=== PATIENT | female | born 1935 | race African-American/Black ===

== ENCOUNTER 2017-10-05 23:06 | Inpatient (IN) | payer MEDICARE, MEDICAID ==
[~2017-10-05] VITALS: Ht 162.6 cm; Wt 84.8 kg
[2017-10-05 23:37] VITALS: BP 194/72
[2017-10-05] MEDS ORDERED: Morphine Sulfate 2mg/ml Inj IVP ONE (23:45)
[2017-10-06] VITALS (9 sets, daily range): BP systolic 129–180; BP diastolic 54–88
[2017-10-06 01:18] LABS: HEMATOCRIT 23.9 % (37.0-47.0); HEMOGLOBIN 7.3 G/DL (12.0-16.0); MEAN CORPUSCULAR VOLUME 68 FL (80-99); PLATELET COUNT 268 K/UL (150-450); RED BLOOD COUNT 3.51 M/UL (4.20-5.40); RED CELL DISTRIBUTION WIDTH 16.6 % (11.6-14.8); WHITE BLOOD COUNT 8.3 K/UL (4.8-10.8)
[2017-10-06 01:26] LABS: BLOOD UREA NITROGEN 39 mg/dL (7-18); CALCIUM 9.4 MG/DL (8.5-10.1); CARBON DIOXIDE 24 MMOL/L (21-32); CHLORIDE 94 MMOL/L (98-107); SODIUM 125 MMOL/L (136-145)
[2017-10-06 01:32] LABS: ALANINE AMINOTRANSFERASE 24 U/L (12-78); ALBUMIN 2.5 G/DL (3.4-5.0); ALBUMIN/GLOBULIN RATIO 0.4 (1.0-2.7); ALKALINE PHOSPHATASE 134 U/L (46-116); ASPARTATE AMINO TRANSFERASE 120 U/L (15-37); BILIRUBIN,TOTAL 0.9 MG/DL (0.2-1.0)
[2017-10-06] MEDS ORDERED: Sodium Chloride 500ML 500 ML IV ONE (01:45)
[2017-10-06 02:34] LABS: POTASSIUM 4.8 MMOL/L (3.5-5.1)
[2017-10-06] MEDS ORDERED: Morphine Sulfate 4mg/ml Inj (IV USE ONLY) IVP ONE (02:45)
[2017-10-06 02:54] LABS: CKMB 1.4 NG/ML (0.0-3.6)
--- NOTE | 2017-10-06 03:51 | Emergency Room Report ---
History of Present Illness General Chief Complaint: Back Pain-No Injury Source: Patient Present Illness HPI 82-year-old female presents ED for evaluation. Patient was brought in by [employer] to the hospital. Was found sitting on a bench alone at night. Patient states that on Wednesday she fell and landed on her back. States she's been having persistent pain to her lower back and left hip. 10 out of 10, sharp, radiating down the left leg. Patient states that she lives alone. Denies chest pain or shortness of breath. Denies fevers or chills. No other aggravating relieving factors. Denies any other associated symptoms Allergies: Coded Allergies: No Known Allergies (Unverified , 10/05/17) Patient History Past Medical History: HTN Past Surgical History: none Pertinent Family History: none Social History: Denies: smoking, alcohol use, drug use Now: No Immunizations: UTD Reviewed Nursing Documentation: PMH: Agreed; PSxH: Agreed Nursing Documentation-PMH Hx Hypertension: Yes Review of Systems All Other Systems: negative except mentioned in HPI Physical Exam Vital Signs Date Time Temp Pulse Resp B/P (MAP) Pulse Ox O2 Delivery O2 Flow Rate FiO2 10/05/17 23:26 99.0 110 16 194/72 99 Room Air 99.0 Sp02 EP Interpretation: reviewed, normal General Appearance: no apparent distress, alert, GCS 15, non-toxic Head: normocephalic, atraumatic Eyes: bilateral eye normal inspection, bilateral eye PERRL ENT: hearing grossly normal, normal pharynx, no angioedema, normal voice Neck: full range of motion, supple/symm/no masses Respiratory: chest non-tender, lungs clear, normal breath sounds, speaking full sentences Cardiovascular #1: regular rate, rhythm, no edema Cardiovascular #2: 2+ carotid (R), 2+ carotid (L), 2+ radial (R), 2+ radial (L) , 2+ dorsalis pedis (R), 2+ dorsalis pedis (L) Gastrointestinal: normal bowel sounds, non tender, soft, non-distended, no guarding, no rebound Rectal: deferred Genitourinary: normal inspection, no CVA tenderness Musculoskeletal: gait/station normal, normal range of motion, decreased range of motion - L hip, tender - L hip Neurologic: alert, oriented x3, responsive, motor strength/tone normal, sensory intact, speech normal Psychiatric: judgement/insight normal, memory normal, mood/affect normal, no suicidal/homicidal ideation Reflexes: 3+ bicep (R), 3+ bicep (L), 3+ tricep (R), 3+ tricep (L), 3+ knee (R) , 3+ knee (L) Skin: normal color, no rash, warm/dry, well hydrated Lymphatic: no adenopathy Medical Decision Making Diagnostic Impression: Primary Impression: Intractable back pain Additional Impressions: Renal insufficiency Hypertension Qualified Codes: I10 - Essential (primary) hypertension Hyponatremia Anemia Qualified Codes: D64.9 - Anemia, unspecified ER Course Hospital Course 82-year-old female presents to ED with back pain, L hip pain s/p fall x 2 days Differential diagnoses include: fracture, contusion, rhabdomyolysis Clinical course Patient placed on stretcher. case monitor. After initial history and physical I ordered labs, pain meds, CT and xrays CT Pelvis and Lspine - no acute process Femur Xray - negative for fx Labs - no leukocytosis, hb 7.3/23.9, Na 125, BUN/Cr elevated FOBT pending EKG- NSR no acute ischemic changes interpreted by me patient given hydralazine for persistent elevated BP. PRBCs ordered IVFs given. Despite analgesia patient continues to have pain in her back and hip and is unable to walk Case discussed with Dr. Ramos and he agreed to accept the patient to his service for further care and support I feel this is a highly complex case requiring extensive working including EKG/ Rhythm strip, Xray/CT/US, Blood/urine lab work, repeat exams while in ED, and administration of strong opiates/narcotics for pain control, admission to hospital or close patient follow up. Diagnosis -intractable back pain , renal insufficiency, hypertension, hyponatremia, anemia Patient admitted to telemetry in serious condition Labs Test 10/06/17 00:50 10/06/17 01:38 White Blood Count 8.3 K/UL (4.8-10.8) Red Blood Count 3.51 M/UL (4.20-5.40) Hemoglobin 7.3 G/DL (12.0-16.0) Hematocrit 23.9 % (37.0-47.0) Mean Corpuscular Volume 68 FL (80-99) Mean Corpuscular Hemoglobin 20.9 PG (27.0-31.0) Mean Corpuscular Hemoglobin Concent 30.7 G/DL (32.0-36.0) Red Cell Distribution Width 16.6 % (11.6-14.8) Platelet Count 268 K/UL (150-450) Mean Platelet Volume 7.2 FL (6.5-10.1) Neutrophils (%) (Auto) % (45.0-75.0) Lymphocytes (%) (Auto) % (20.0-45.0) Monocytes (%) (Auto) % (1.0-10.0) Eosinophils (%) (Auto) % (0.0-3.0) Basophils (%) (Auto) % (0.0-2.0) Prothrombin Time 10.4 SEC (9.30-11.50) Prothromb Time International Ratio 1.0 (0.9-1.1) Activated Partial Thromboplast Time 26 SEC (23-33) Sodium Level 125 MMOL/L (136-145) Potassium Level 4.8 MMOL/L (3.5-5.1) Chloride Level 94 MMOL/L (98-107) Carbon Dioxide Level 24 MMOL/L (21-32) Blood Urea Nitrogen 39 mg/dL (7-18) Creatinine 2.0 MG/DL (0.55-1.30) Estimat Glomerular Filtration Rate mL/min (>60) Glucose Level 413 MG/DL (74-106) Calcium Level 9.4 MG/DL (8.5-10.1) Total Bilirubin 0.9 MG/DL (0.2-1.0) Aspartate Amino Transf (AST/SGOT) 120 U/L (15-37) Alanine Aminotransferase (ALT/SGPT) 24 U/L (12-78) Alkaline Phosphatase 134 U/L (46-116) Total Protein 9.4 G/DL (6.4-8.2) Albumin 2.5 G/DL (3.4-5.0) Globulin 6.9 g/dL Albumin/Globulin Ratio 0.4 (1.0-2.7) Total Creatine Kinase 95 U/L (26-308) Creatine Kinase MB 1.4 NG/ML (0.0-3.6) Creatine Kinase MB Relative Index 1.4 Troponin I 0.000 ng/mL (0.000-0.056) EKG Diagnostic Results Rate: normal Rhythm: NSR ST Segments: no acute changes ASA given to the pt in ED: No Rhythm Strip Diag. Results EP Interpretation: yes Rhythm: NSR, no PVC's, no ectopy Other X-Ray Diagnostic Results Other X-Ray Diagnostic Results : X-Ray ordered: L femur # of Views/Limited Vs Complete: 3 View Indication: Pain EP Interpretation: Yes Interpretation: no dislocation, no soft tissue swelling, no fractures Impression: No acute disease Electronically Signed by: Electronically signed by Israel Gamez MD CT/MRI/US Diagnostic Results CT/MRI/US Diagnostic Results #1: Imaging Test Ordered: CT L spine Impression no acute process CT/MRI/US Diagnostic Results #2: Imaging Test Ordered: CT Pelvis Impression no acute process Last Vital Signs Date Time Temp Pulse Resp B/P (MAP) Pulse Ox O2 Delivery O2 Flow Rate FiO2 10/06/17 02:00 105 16 180/74 98 Room Air 10/06/17 01:12 99.0 Status: improved Disposition: ADMITTED INPATIENT Condition: Serious Referrals: NOT CHOSEN IPA/,REFERRING (PCP) Israel Gamez MD Oct 06, 2017 03:51
[2017-10-06] MEDS ORDERED: Morphine Sulfate 2mg/ml Inj IVP PRN (07:15)
[2017-10-06] MEDS ORDERED: Morphine Sulfate 4mg/ml Inj (IV USE ONLY) IVP PRN (07:15)
[2017-10-06] MEDS ORDERED: Mylanta II UD 30ml ORAL PRN (07:15)
[2017-10-06] MEDS ORDERED: LORazepam Inj 2mg/ml 1ml IV PRN (07:15)
[2017-10-06] MEDS ORDERED: Zolpidem 5mg tab ORAL PRN (07:15)
--- NOTE | 2017-10-06 08:37 | Consultation ---
History of Present Illness General Date patient seen: Oct 06, 2017 Chief Complaint: Present Illness Allergies: Coded Allergies: No Known Allergies (Unverified , 10/05/17) Patient History Healthcare decision maker Resuscitation status Full Code Advanced Directive on File Physical Exam Last 24 Hour Vital Signs Date Time Temp Pulse Resp B/P (MAP) Pulse Ox O2 Delivery O2 Flow Rate FiO2 10/06/17 06:53 Room Air 10/06/17 06:00 97.9 96 16 165/81 (109) 100 97.9 10/06/17 05:29 98.8 99 16 153/77 98 Room Air 98.8 10/06/17 05:28 98.8 99 16 156/77 98 Room Air 98.8 10/06/17 04:51 98.8 10/06/17 04:30 153/77 10/06/17 04:24 98.8 105 16 153/77 98 Room Air 98.8 10/06/17 04:21 98.9 10/06/17 02:00 105 16 180/74 98 Room Air 10/06/17 01:12 99.0 10/06/17 01:00 98.9 105 16 178/68 98 Room Air 98.9 10/06/17 00:42 99.0 10/05/17 23:37 99.0 111 16 194/72 98 Room Air 99.0 10/05/17 23:26 99.0 110 16 194/72 99 Room Air 99.0 Intake and Output 10/05/17 10/06/17 19:00 07:00 Intake Total 500 ml Balance 500 ml Intake IV Total 500 ml # Voids 1 Laboratory Tests Test 10/06/17 00:50 10/06/17 01:38 White Blood Count 8.3 K/UL (4.8-10.8) Red Blood Count 3.51 M/UL (4.20-5.40) L Hemoglobin 7.3 G/DL (12.0-16.0) L Hematocrit 23.9 % (37.0-47.0) L Mean Corpuscular Volume 68 FL (80-99) L Mean Corpuscular Hemoglobin 20.9 PG (27.0-31.0) L Mean Corpuscular Hemoglobin Concent 30.7 G/DL (32.0-36.0) L Red Cell Distribution Width 16.6 % (11.6-14.8) H Platelet Count 268 K/UL (150-450) Mean Platelet Volume 7.2 FL (6.5-10.1) Neutrophils (%) (Auto) % (45.0-75.0) Lymphocytes (%) (Auto) % (20.0-45.0) Monocytes (%) (Auto) % (1.0-10.0) Eosinophils (%) (Auto) % (0.0-3.0) Basophils (%) (Auto) % (0.0-2.0) Prothrombin Time 10.4 SEC (9.30-11.50) Prothromb Time International Ratio 1.0 (0.9-1.1) Activated Partial Thromboplast Time 26 SEC (23-33) Sodium Level 125 MMOL/L (136-145) L Potassium Level 4.8 MMOL/L (3.5-5.1) Chloride Level 94 MMOL/L (98-107) L Carbon Dioxide Level 24 MMOL/L (21-32) Blood Urea Nitrogen 39 mg/dL (7-18) H Creatinine 2.0 MG/DL (0.55-1.30) H Estimat Glomerular Filtration Rate mL/min (>60) Glucose Level 413 MG/DL (74-106) H Calcium Level 9.4 MG/DL (8.5-10.1) Total Bilirubin 0.9 MG/DL (0.2-1.0) Aspartate Amino Transf (AST/SGOT) 120 U/L (15-37) H Alanine Aminotransferase (ALT/SGPT) 24 U/L (12-78) Alkaline Phosphatase 134 U/L (46-116) H Total Protein 9.4 G/DL (6.4-8.2) H Albumin 2.5 G/DL (3.4-5.0) L Globulin 6.9 g/dL Albumin/Globulin Ratio 0.4 (1.0-2.7) L Stool Occult Blood Pending Total Creatine Kinase 95 U/L (26-308) Creatine Kinase MB 1.4 NG/ML (0.0-3.6) Creatine Kinase MB Relative Index 1.4 Troponin I 0.000 ng/mL (0.000-0.056) Height (Feet): 5 Height (Inches): 4.00 Weight (Pounds): 187 Medications Current Medications Medications (Trade) Dose Ordered Sig/Lorie Route PRN Reason Start Time Stop Time Status Last Admin Dose Admin Acetaminophen (Tylenol) 650 mg Q4H PRN ORAL fever (temp>100.5F) 10/06/17 07:15 11/05/17 07:14 Al Hydroxide/Mg Hydroxide (Mylanta II) 30 ml Q6H PRN ORAL dyspepsia 10/06/17 07:15 11/05/17 07:14 Dextrose (Dextrose 50%) 25 ml STAT PRN IV Hypoglycemia 10/06/17 07:15 11/05/17 07:14 Dextrose (Dextrose 50%) 50 ml STAT PRN IV Hypoglycemia 10/06/17 08:00 11/05/17 07:59 Heparin Sodium (Porcine) (Heparin 5000 units/ml) 5,000 units EVERY 12 HOURS SUBQ 10/06/17 09:00 11/05/17 08:59 Lorazepam (Ativan 2mg/ml 1ml) 0.5 mg Q4H PRN IV For Anxiety 10/06/17 07:15 10/13/17 07:14 Morphine Sulfate (Morphine Sulfate) 2 mg Q4H PRN IVP For Pain 4-6 10/06/17 07:15 10/13/17 07:14 Morphine Sulfate (Morphine Sulfate) 4 mg Q4H PRN IVP For Pain 7-10 10/06/17 07:15 10/13/17 07:14 Ondansetron HCl (Zofran) 4 mg Q6H PRN IVP Nausea & Vomiting 10/06/17 07:15 11/05/17 07:14 Polyethylene Glycol (Miralax) 17 gm HSPRN PRN ORAL Constipation 10/06/17 07:15 11/05/17 07:14 Zolpidem Tartrate (Ambien) 5 mg HSPRN PRN ORAL Insomnia 10/06/17 07:15 10/13/17 07:14 Assessment/Plan Assessment/Plan (1) Lumbar degenerative disc disease (2) Lumbar spondylosis (3) Lumbar herniated disc (4) Lumbar radiculopathy Thai Pederson Oct 06, 2017 08:37
[2017-10-06] MEDS: Heparin 5000 units/ml inj SUBQ SCH ×2 (09:00→21:13)
--- NOTE | 2017-10-06 09:35 | Diagnostic Imaging Report ---
Indication: Back pain Technique: Continuous helical transaxial imaging of the lumbar spine was obtained from the lung bases to the pubic symphysis. No IV contrast was administered. Coronal 2-D reformats were also obtained. Study obtained in a Siemens sensation [address] Total Dose length Product (DLP): 665.[address] Dose Index Volume (CTDIvol): 19.38 mGy Comparison: None Findings: No fracture is identified. There is a mild anterolisthesis at L4-5 with mild narrowing of the disc. Concentric disc bulges suspected at multiple levels throughout the lumbar spine. There is hypertrophy of the lumbar facets at multiple levels. There is suggestion of narrowing of the neural foramen moderate to severe in degree at L4-5 bilaterally. Other neural foramina may be narrowed as well but this level appears the most severe in degree. Aorta is moderately calcified. Mild endplate spurs are also demonstrated at multiple levels. No soft tissue swelling is identified. IMPRESSION: No acute injury appreciated. No fracture seen. Degenerative changes of lumbar spine as described above Atherosclerotic vascular disease [facility] has communicated the preliminary results to the Emergency Department. Their findings are largely concordant with this report. The CT scanner at [facility] is accredited by the [employer] and the scans are performed using dose optimization techniques as appropriate to a performed exam including Automatic Exposure control.
--- NOTE | 2017-10-06 09:52 | Diagnostic Imaging Report ---
Indication: Pelvic pain and trauma Technique: Continuous helical transaxial imaging of the pelvis was obtained from the iliac crest to the pubic symphysis. Coronal 2-D reformats were also obtained. Study obtained in a Siemens sensation [address] Intravenous non-ionic contrast was administered. Total Dose length Product (DLP): 457.[address] Dose Index Volume (CTDIvol): 15.75 mGy Comparison: None Findings: No acute fractures identified. The bones appear osteopenic. Degenerative changes of both hips demonstrated with the mild osteophyte formation and joint space narrowing. Similar findings involving the sacroiliac joints. Mild vacuum phenomenon involving visualized lower lumbar spine discs. No malalignment identified. Abdominal wall sutures noted in the anterior abdominal wall below the umbilicus. Air demonstrated within the urinary bladder. UTI presumed unless there is explanation for this. A small left inguinal hernia is identified. There is no free fluid in the pelvis. IMPRESSION: No acute pelvic trauma. Small left inguinal hernia Air in the urinary bladder. Correlate for recent Dom[place] catheter placement or other explanation of the air. Otherwise, consider infection. Other incidental findings as above. [facility] has communicated the preliminary results to the Emergency Department. Their findings are largely concordant with this report. The CT scanner at [facility] is accredited by the [employer] and the scans are performed using dose optimization techniques as appropriate to a performed exam including Automatic Exposure control.
--- NOTE | 2017-10-06 11:07 | Diagnostic Imaging Report ---
Indication: Left thigh pain. Trauma Findings: 2 views of the left femur were obtained. No acute fractures, malalignment, erosions or periostitis are identified. Soft tissues are unremarkable. Impression: Negative examination of the femur
--- NOTE | 2017-10-06 11:57 | Consultation ---
History of Present Illness General Date patient seen: Oct 06, 2017 Chief Complaint: Back Pain-No Injury Present Illness HPI 82-year-old female wtih hx of HTN presented to ED for evaluation. Patient was brought in by [employer] to the hospital. she was found sitting on a bench alone at night. Patient states that on Wednesday she fell and landed on her back. States she's been having persistent pain to her lower back and left hip. 10 out of 10, sharp, radiating down the left leg. A CT of spine and hip xry were negative for spine or hip fracture. She was found severely anemic and was admitted to telemetry for further work up. Allergies: Coded Allergies: No Known Allergies (Unverified , 10/05/17) Patient History Healthcare decision maker Resuscitation status Full Code Advanced Directive on File Past Medical/Surgical History Past Medical/Surgical History: (1) History of hypertension Review of Systems All Other Systems: negative except mentioned in HPI Physical Exam General Appearance: WD/WN Lines, tubes and drains: peripheral HEENT: normocephalic, atraumatic Neck: non-tender, normal alignment Respiratory/Chest: chest wall non-tender, lungs clear, no respiratory distress Breasts: no masses Cardiovascular/Chest: normal peripheral pulses Abdomen: normal bowel sounds, non tender Genitourinary/Rectal: normal genital exam, normal rectal exam Extremities: normal range of motion, non-tender Skin Exam: normal pigmentation 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 Last 24 Hour Vital Signs Date Time Temp Pulse Resp B/P (MAP) Pulse Ox O2 Delivery O2 Flow Rate FiO2 10/06/17 09:00 Room Air 10/06/17 08:00 97.5 101 18 151/88 (109) 98 97.5 10/06/17 06:53 Room Air 10/06/17 06:00 97.9 96 16 165/81 (109) 100 97.9 10/06/17 05:29 98.8 99 16 153/77 98 Room Air 98.8 10/06/17 05:28 98.8 99 16 156/77 98 Room Air 98.8 10/06/17 04:51 98.8 10/06/17 04:30 153/77 10/06/17 04:24 98.8 105 16 153/77 98 Room Air 98.8 10/06/17 04:21 98.9 10/06/17 02:00 105 16 180/74 98 Room Air 10/06/17 01:12 99.0 10/06/17 01:00 98.9 105 16 178/68 98 Room Air 98.9 10/06/17 00:42 99.0 10/05/17 23:37 99.0 111 16 194/72 98 Room Air 99.0 10/05/17 23:26 99.0 110 16 194/72 99 Room Air 99.0 Intake and Output 10/05/17 10/06/17 19:00 07:00 Intake Total 500 ml Balance 500 ml Intake IV Total 500 ml # Voids 1 Laboratory Tests Test 10/06/17 00:50 10/06/17 01:38 White Blood Count 8.3 K/UL (4.8-10.8) Red Blood Count 3.51 M/UL (4.20-5.40) L Hemoglobin 7.3 G/DL (12.0-16.0) L Hematocrit 23.9 % (37.0-47.0) L Mean Corpuscular Volume 68 FL (80-99) L Mean Corpuscular Hemoglobin 20.9 PG (27.0-31.0) L Mean Corpuscular Hemoglobin Concent 30.7 G/DL (32.0-36.0) L Red Cell Distribution Width 16.6 % (11.6-14.8) H Platelet Count 268 K/UL (150-450) Mean Platelet Volume 7.2 FL (6.5-10.1) Neutrophils (%) (Auto) % (45.0-75.0) Lymphocytes (%) (Auto) % (20.0-45.0) Monocytes (%) (Auto) % (1.0-10.0) Eosinophils (%) (Auto) % (0.0-3.0) Basophils (%) (Auto) % (0.0-2.0) Prothrombin Time 10.4 SEC (9.30-11.50) Prothromb Time International Ratio 1.0 (0.9-1.1) Activated Partial Thromboplast Time 26 SEC (23-33) Sodium Level 125 MMOL/L (136-145) L Potassium Level 4.8 MMOL/L (3.5-5.1) Chloride Level 94 MMOL/L (98-107) L Carbon Dioxide Level 24 MMOL/L (21-32) Blood Urea Nitrogen 39 mg/dL (7-18) H Creatinine 2.0 MG/DL (0.55-1.30) H Estimat Glomerular Filtration Rate mL/min (>60) Glucose Level 413 MG/DL (74-106) H Calcium Level 9.4 MG/DL (8.5-10.1) Total Bilirubin 0.9 MG/DL (0.2-1.0) Aspartate Amino Transf (AST/SGOT) 120 U/L (15-37) H Alanine Aminotransferase (ALT/SGPT) 24 U/L (12-78) Alkaline Phosphatase 134 U/L (46-116) H Total Protein 9.4 G/DL (6.4-8.2) H Albumin 2.5 G/DL (3.4-5.0) L Globulin 6.9 g/dL Albumin/Globulin Ratio 0.4 (1.0-2.7) L Stool Occult Blood Pending Total Creatine Kinase 95 U/L (26-308) Creatine Kinase MB 1.4 NG/ML (0.0-3.6) Creatine Kinase MB Relative Index 1.4 Troponin I 0.000 ng/mL (0.000-0.056) Height (Feet): 5 Height (Inches): 4.00 Weight (Pounds): 187 Medications Current Medications Medications (Trade) Dose Ordered Sig/Lorie Route PRN Reason Start Time Stop Time Status Last Admin Dose Admin Acetaminophen (Tylenol) 650 mg Q4H PRN ORAL fever (temp>100.5F) 10/06/17 07:15 11/05/17 07:14 Al Hydroxide/Mg Hydroxide (Mylanta II) 30 ml Q6H PRN ORAL dyspepsia 10/06/17 07:15 11/05/17 07:14 Dextrose (Dextrose 50%) 25 ml STAT PRN IV Hypoglycemia 10/06/17 07:15 11/05/17 07:14 Dextrose (Dextrose 50%) 50 ml STAT PRN IV Hypoglycemia 10/06/17 08:00 11/05/17 07:59 Heparin Sodium (Porcine) (Heparin 5000 units/ml) 5,000 units EVERY 12 HOURS SUBQ 10/06/17 09:00 11/05/17 08:59 Lorazepam (Ativan 2mg/ml 1ml) 0.5 mg Q4H PRN IV For Anxiety 10/06/17 07:15 10/13/17 07:14 Ondansetron HCl (Zofran) 4 mg Q6H PRN IVP Nausea & Vomiting 10/06/17 07:15 11/05/17 07:14 Polyethylene Glycol (Miralax) 17 gm HSPRN PRN ORAL Constipation 10/06/17 07:15 11/05/17 07:14 Tramadol HCl (Ultram) 50 mg Q4H PRN ORAL Severe Pain (Pain Scale 7-10) 10/06/17 09:00 10/13/17 08:59 Zolpidem Tartrate (Ambien) 5 mg HSPRN PRN ORAL Insomnia 10/06/17 07:15 10/13/17 07:14 Assessment/Plan Problem List: (1) Encephalopathy acute ICD Codes: G93.40 - Encephalopathy, unspecified SNOMED: 99616119, 148035132 (2) Severe anemia ICD Codes: D64.9 - Anemia, unspecified SNOMED: 367578208 (3) Renal insufficiency ICD Codes: N28.9 - Disorder of kidney and ureter, unspecified SNOMED: 416742860, [id number] (4) Intractable back pain ICD Codes: M54.9 - Dorsalgia, unspecified SNOMED: 979415260 (5) Hyponatremia ICD Codes: E87.1 - Hypo-osmolality and hyponatremia SNOMED: 69985046 (6) History of hypertension ICD Codes: Z86.79 - Personal history of other diseases of the circulatory system SNOMED: 330604509 Assessment/Plan telemetry monitoring neuro and psych evaluation pain management monitor BP renal evaluation anemia work up. stool for OB dvr prophylaxis Albert Guy MD Oct 06, 2017 11:57
[2017-10-06] MEDS ORDERED: Metoprolol Tartrate 50mg tab ORAL SCH (12:15)
[2017-10-06] MEDS ORDERED: Losartan 50mg tab ORAL SCH (12:15)
--- NOTE | 2017-10-06 13:04 | GI Initial Consult Note ---
History of Present Illness General Date patient seen: Oct 06, 2017 Time patient seen: 13:00 Reason for Hospitalization: Back Pain-No Injury Referring physician: GILLIAN MONTES Reason for Consultation: ANEMIA Present Illness HPI 82-year-old female presents ED for evaluation. Patient was brought in by [employer] to the hospital. Was found sitting on a bench alone at night. Patient states that on Wednesday she fell and landed on her back. States she's been having persistent pain to her lower back and left hip. 10 out of 10, sharp, radiating down the left leg. Patient states that she lives alone. Denies chest pain or shortness of breath. Denies fevers or chills. No other aggravating relieving factors. Denies any other associated symptoms. GI consulted for anemia. Pt seen, awake A&Ox4 NAD with no active s/sx of N/V/ D. Denies abdominal pain. Has complaint of occasional constipation. Unaware that she is anemic. Had a lab draw 3-4 months ago, in which she was not told anything. No reports of bloody emesis or stools. Has had multiple colonoscopies in the past, last was 5+ years ago. Presents today with severe anemia requiring blood transfusion and elevated HgA1C. Med list reviewed/reconciled: Yes Allergies: Coded Allergies: No Known Allergies (Unverified , 10/05/17) Patient History History Provided By: Patient, Medical Record PMH Narrative Past Medical History: HTN Past Surgical History: none Pertinent Family History: none Social History: Denies: smoking, alcohol use, drug use Now: No Immunizations: UTD Reviewed Nursing Documentation: PMH: Agreed; PSxH: Agreed Nursing Documentation-PMH Hx Hypertension: Yes Social History: Denies: smoking, alcohol use, drug use, other Review of Systems All Other Systems: negative except mentioned in HPI Physical Exam Vital Signs Date Time Temp Pulse Resp B/P (MAP) Pulse Ox O2 Delivery O2 Flow Rate FiO2 10/05/17 23:26 99.0 110 16 194/72 99 Room Air 99.0 Sp02 EP Interpretation: reviewed, normal Labs Laboratory Tests Test 10/06/17 00:50 10/06/17 01:38 White Blood Count 8.3 K/UL (4.8-10.8) Red Blood Count 3.51 M/UL (4.20-5.40) L Hemoglobin 7.3 G/DL (12.0-16.0) L Hematocrit 23.9 % (37.0-47.0) L Mean Corpuscular Volume 68 FL (80-99) L Mean Corpuscular Hemoglobin 20.9 PG (27.0-31.0) L Mean Corpuscular Hemoglobin Concent 30.7 G/DL (32.0-36.0) L Red Cell Distribution Width 16.6 % (11.6-14.8) H Platelet Count 268 K/UL (150-450) Mean Platelet Volume 7.2 FL (6.5-10.1) Neutrophils (%) (Auto) % (45.0-75.0) Lymphocytes (%) (Auto) % (20.0-45.0) Monocytes (%) (Auto) % (1.0-10.0) Eosinophils (%) (Auto) % (0.0-3.0) Basophils (%) (Auto) % (0.0-2.0) Prothrombin Time 10.4 SEC (9.30-11.50) Prothromb Time International Ratio 1.0 (0.9-1.1) Activated Partial Thromboplast Time 26 SEC (23-33) Sodium Level 125 MMOL/L (136-145) L Potassium Level 4.8 MMOL/L (3.5-5.1) Chloride Level 94 MMOL/L (98-107) L Carbon Dioxide Level 24 MMOL/L (21-32) Blood Urea Nitrogen 39 mg/dL (7-18) H Creatinine 2.0 MG/DL (0.55-1.30) H Estimat Glomerular Filtration Rate mL/min (>60) Glucose Level 413 MG/DL (74-106) H Calcium Level 9.4 MG/DL (8.5-10.1) Total Bilirubin 0.9 MG/DL (0.2-1.0) Aspartate Amino Transf (AST/SGOT) 120 U/L (15-37) H Alanine Aminotransferase (ALT/SGPT) 24 U/L (12-78) Alkaline Phosphatase 134 U/L (46-116) H Total Protein 9.4 G/DL (6.4-8.2) H Albumin 2.5 G/DL (3.4-5.0) L Globulin 6.9 g/dL Albumin/Globulin Ratio 0.4 (1.0-2.7) L Stool Occult Blood Pending Total Creatine Kinase 95 U/L (26-308) Creatine Kinase MB 1.4 NG/ML (0.0-3.6) Creatine Kinase MB Relative Index 1.4 Troponin I 0.000 ng/mL (0.000-0.056) General Appearance: well appearing, no apparent distress, alert Head: normocephalic EENT: PERRL/EOMI, normal ENT inspection Neck: supple Respiratory: normal breath sounds, no respiratory distress Cardiovascular: normal rate Gastrointestinal: normal inspection, non tender, soft, normal bowel sounds, non -distended Rectal: deferred Genitourinary: no CVA tenderness Musculoskeletal: normal inspection, back normal Neurologic: normal inspection, alert, oriented x3, responsive Psychiatric: normal inspection, judgement/insight normal, memory normal Skin: normal inspection, normal color, no rash, warm/dry, palpation normal, well hydrated Lymphatic: normal inspection, no adenopathy Current Medications Current Medications Medications (Trade) Dose Ordered Sig/Lorie Route PRN Reason Start Time Stop Time Status Last Admin Dose Admin Acetaminophen (Tylenol) 650 mg Q4H PRN ORAL fever (temp>100.5F) 10/06/17 07:15 11/05/17 07:14 Al Hydroxide/Mg Hydroxide (Mylanta II) 30 ml Q6H PRN ORAL dyspepsia 10/06/17 07:15 11/05/17 07:14 Dextrose (Dextrose 50%) 25 ml STAT PRN IV Hypoglycemia 10/06/17 07:15 11/05/17 07:14 Dextrose (Dextrose 50%) 50 ml STAT PRN IV Hypoglycemia 10/06/17 08:00 11/05/17 07:59 Heparin Sodium (Porcine) (Heparin 5000 units/ml) 5,000 units EVERY 12 HOURS SUBQ 10/06/17 09:00 11/05/17 08:59 Insulin Aspart (NovoLOG) BEFORE MEALS AND HS SUBQ 10/06/17 16:30 11/05/17 16:29 Lorazepam (Ativan 2mg/ml 1ml) 0.5 mg Q4H PRN IV For Anxiety 10/06/17 07:15 10/13/17 07:14 Losartan Potassium (Cozaar) 50 mg EVERY 12 HOURS ORAL 10/06/17 21:00 11/05/17 20:59 Losartan Potassium (Cozaar) 50 mg ONCE ORAL 10/06/17 12:15 10/06/17 13:15 10/06/17 12:38 Metoprolol Tartrate (Lopressor) 50 mg ONCE ORAL 10/06/17 12:15 10/06/17 13:15 10/06/17 12:38 Metoprolol Tartrate (Lopressor) 50 mg Q12HR ORAL 10/06/17 21:00 11/05/17 20:59 Ondansetron HCl (Zofran) 4 mg Q6H PRN IVP Nausea & Vomiting 10/06/17 07:15 11/05/17 07:14 Polyethylene Glycol (Miralax) 17 gm HSPRN PRN ORAL Constipation 10/06/17 07:15 11/05/17 07:14 Tramadol HCl (Ultram) 50 mg Q4H PRN ORAL Severe Pain (Pain Scale 7-10) 10/06/17 09:00 10/13/17 08:59 Zolpidem Tartrate (Ambien) 5 mg HSPRN PRN ORAL Insomnia 10/06/17 07:15 10/13/17 07:14 GI: Plan Problems: (1) Diabetes mellitus (2) Severe anemia Plan possible EGD/colonoscopy this Wednesday pending work up clear liquid diet starting tomorrow OB stool r/o GI bleed pending anemia work up in process monitor H&H, prn transfusions >> 2 units today bowel regime ppi DM mgmt fu labs Discussed with Dr. Marquez. Thank you for this patient referral, we will follow. The patient was seen and examined at bedside and all new and available data was reviewed in the patients chart. I agree with the above findings, impression and plan. (Patient seen earlier today. Signature stamp does not reflect patient encounter time.). - MD Cierra Barroso,[facility] FORESTR[employer] PROFESSOR Oct 06, 2017 13:04
[2017-10-06] MEDS: NovoLOG Insulin Flexpen SUBQ SCH ×3 (13:09→21:12)
--- NOTE | 2017-10-06 13:13 | Consultation ---
History of Present Illness General Date patient seen: Oct 06, 2017 Chief Complaint: Back Pain-No Injury Referring physician: GILLIAN MONTES Reason for Consultation: ANEMIA Present Illness HPI 82-year-old female presents ED for evaluation,brought in by [employer] to the hospital. the pt was sitting on a bench for three hours. the pt stated that she was waiting for "a taxi to take" her to the hospital the pt is unable to give info about her address and is a poor historian Allergies: Coded Allergies: No Known Allergies (Unverified , 10/05/17) Patient History Limited by: medical condition History Provided By: Patient, Medical Record, PMD Healthcare decision maker Resuscitation status Full Code Advanced Directive on File Past Medical/Surgical History Past Medical/Surgical History: (1) Renal insufficiency (2) Anemia (3) Hyponatremia (4) Encephalopathy acute (5) History of hypertension (6) Intractable back pain (7) Severe anemia (8) Hypertension Review of Systems Psychiatric: Reports: anxiety, depressed feelings, emotional problems Physical Exam General Appearance: no apparent distress, alert Neurologic: oriented x 3, responsive, depressed affect Last 24 Hour Vital Signs Date Time Temp Pulse Resp B/P (MAP) Pulse Ox O2 Delivery O2 Flow Rate FiO2 10/06/17 12:38 163/79 10/06/17 12:38 100 163/79 10/06/17 09:00 Room Air 10/06/17 08:00 97.5 101 18 151/88 (109) 98 97.5 10/06/17 06:53 Room Air 10/06/17 06:00 97.9 96 16 165/81 (109) 100 97.9 10/06/17 05:29 98.8 99 16 153/77 98 Room Air 98.8 10/06/17 05:28 98.8 99 16 156/77 98 Room Air 98.8 10/06/17 04:51 98.8 10/06/17 04:30 153/77 10/06/17 04:24 98.8 105 16 153/77 98 Room Air 98.8 10/06/17 04:21 98.9 10/06/17 02:00 105 16 180/74 98 Room Air 10/06/17 01:12 99.0 10/06/17 01:00 98.9 105 16 178/68 98 Room Air 98.9 10/06/17 00:42 99.0 10/05/17 23:37 99.0 111 16 194/72 98 Room Air 99.0 10/05/17 23:26 99.0 110 16 194/72 99 Room Air 99.0 Intake and Output 10/05/17 10/06/17 19:00 07:00 Intake Total 500 ml Balance 500 ml Intake IV Total 500 ml # Voids 1 Laboratory Tests Test 10/06/17 00:50 10/06/17 01:38 10/06/17 13:00 White Blood Count 8.3 K/UL (4.8-10.8) Pending Red Blood Count 3.51 M/UL (4.20-5.40) L Pending Hemoglobin 7.3 G/DL (12.0-16.0) L Pending Hematocrit 23.9 % (37.0-47.0) L Pending Mean Corpuscular Volume 68 FL (80-99) L Pending Mean Corpuscular Hemoglobin 20.9 PG (27.0-31.0) L Pending Mean Corpuscular Hemoglobin Concent 30.7 G/DL (32.0-36.0) L Pending Red Cell Distribution Width 16.6 % (11.6-14.8) H Pending Platelet Count 268 K/UL (150-450) Pending Mean Platelet Volume 7.2 FL (6.5-10.1) Pending Neutrophils (%) (Auto) % (45.0-75.0) Pending Lymphocytes (%) (Auto) % (20.0-45.0) Pending Monocytes (%) (Auto) % (1.0-10.0) Pending Eosinophils (%) (Auto) % (0.0-3.0) Pending Basophils (%) (Auto) % (0.0-2.0) Pending Prothrombin Time 10.4 SEC (9.30-11.50) Pending Prothromb Time International Ratio 1.0 (0.9-1.1) Pending Activated Partial Thromboplast Time 26 SEC (23-33) Pending Sodium Level 125 MMOL/L (136-145) L Pending Potassium Level 4.8 MMOL/L (3.5-5.1) Pending Chloride Level 94 MMOL/L (98-107) L Pending Carbon Dioxide Level 24 MMOL/L (21-32) Pending Blood Urea Nitrogen 39 mg/dL (7-18) H Pending Creatinine 2.0 MG/DL (0.55-1.30) H Pending Estimat Glomerular Filtration Rate mL/min (>60) Pending Glucose Level 413 MG/DL (74-106) H Pending Calcium Level 9.4 MG/DL (8.5-10.1) Pending Total Bilirubin 0.9 MG/DL (0.2-1.0) Aspartate Amino Transf (AST/SGOT) 120 U/L (15-37) H Alanine Aminotransferase (ALT/SGPT) 24 U/L (12-78) Alkaline Phosphatase 134 U/L (46-116) H Total Protein 9.4 G/DL (6.4-8.2) H Albumin 2.5 G/DL (3.4-5.0) L Globulin 6.9 g/dL Albumin/Globulin Ratio 0.4 (1.0-2.7) L Stool Occult Blood Pending Total Creatine Kinase 95 U/L (26-308) Pending Creatine Kinase MB 1.4 NG/ML (0.0-3.6) Creatine Kinase MB Relative Index 1.4 Troponin I 0.000 ng/mL (0.000-0.056) Erythrocyte Sedimentation Rate Pending Reticulocyte Count Pending Hemoglobin A1c Pending Uric Acid Pending Iron Level Pending Unsaturated Iron Binding Pending Lactate Dehydrogenase Pending Carcinoembryonic Antigen Pending Vitamin B12 Level Pending Folate Pending Height (Feet): 5 Height (Inches): 4.00 Weight (Pounds): 187 Medications Current Medications Medications (Trade) Dose Ordered Sig/Lorie Route PRN Reason Start Time Stop Time Status Last Admin Dose Admin Acetaminophen (Tylenol) 650 mg Q4H PRN ORAL fever (temp>100.5F) 10/06/17 07:15 11/05/17 07:14 Al Hydroxide/Mg Hydroxide (Mylanta II) 30 ml Q6H PRN ORAL dyspepsia 10/06/17 07:15 11/05/17 07:14 Dextrose (Dextrose 50%) 25 ml STAT PRN IV Hypoglycemia 10/06/17 07:15 11/05/17 07:14 Dextrose (Dextrose 50%) 50 ml STAT PRN IV Hypoglycemia 10/06/17 08:00 11/05/17 07:59 Heparin Sodium (Porcine) (Heparin 5000 units/ml) 5,000 units EVERY 12 HOURS SUBQ 10/06/17 09:00 11/05/17 08:59 Insulin Aspart (NovoLOG) BEFORE MEALS AND HS SUBQ 10/06/17 13:02 11/05/17 13:01 10/06/17 13:09 Lorazepam (Ativan 2mg/ml 1ml) 0.5 mg Q4H PRN IV For Anxiety 10/06/17 07:15 10/13/17 07:14 Losartan Potassium (Cozaar) 50 mg EVERY 12 HOURS ORAL 10/06/17 21:00 11/05/17 20:59 Losartan Potassium (Cozaar) 50 mg ONCE ORAL 10/06/17 12:15 10/06/17 13:15 10/06/17 12:38 Metoprolol Tartrate (Lopressor) 50 mg ONCE ORAL 10/06/17 12:15 10/06/17 13:15 10/06/17 12:38 Metoprolol Tartrate (Lopressor) 50 mg Q12HR ORAL 10/06/17 21:00 11/05/17 20:59 Ondansetron HCl (Zofran) 4 mg Q6H PRN IVP Nausea & Vomiting 10/06/17 07:15 11/05/17 07:14 Polyethylene Glycol (Miralax) 17 gm HSPRN PRN ORAL Constipation 10/06/17 07:15 11/05/17 07:14 Tramadol HCl (Ultram) 50 mg Q4H PRN ORAL Severe Pain (Pain Scale 7-10) 10/06/17 09:00 10/13/17 08:59 Zolpidem Tartrate (Ambien) 5 mg HSPRN PRN ORAL Insomnia 10/06/17 07:15 10/13/17 07:14 Assessment/Plan Status: stable Assessment/Plan Cognitive impairment 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
[2017-10-06 13:16] LABS: BASOPHILS % (AUTO) 0.5 % (0.0-2.0); EOSINOPHILS % (AUTO) 0.2 % (0.0-3.0); HEMATOCRIT 35.2 % (37.0-47.0); HEMOGLOBIN 11.2 G/DL (12.0-16.0); LYMPHOCYTES % (AUTO) 6.3 % (20.0-45.0); MEAN CORPUSCULAR VOLUME 72 FL (80-99); MONOCYTES % (AUTO) 8.6 % (1.0-10.0); NEUTROPHILS % (AUTO) 84.5 % (45.0-75.0); PLATELET COUNT 330 K/UL (150-450); RED BLOOD COUNT 4.86 M/UL (4.20-5.40); RED CELL DISTRIBUTION WIDTH 17.6 % (11.6-14.8); WHITE BLOOD COUNT 11.2 K/UL (4.8-10.8)
[2017-10-06 13:35] LABS: ANION GAP 11 mmol/L (5-15); BLOOD UREA NITROGEN 35 mg/dL (7-18); CALCIUM 9.8 MG/DL (8.5-10.1); CARBON DIOXIDE 24 MMOL/L (21-32); CHLORIDE 94 MMOL/L (98-107); POTASSIUM 4.4 MMOL/L (3.5-5.1); SODIUM 129 MMOL/L (136-145)
[2017-10-06 14:04] LABS: % IRON SATURATION 14 % (15-50); IRON 36 ug/dL (50-175); TOTAL IRON BINDING CAPACITY 264 ug/dL (250-450)
[2017-10-06 14:05] LABS: CREATINE KINASE 54 U/L (26-308)
[2017-10-06 14:21] LABS: LACTATE DEHYDROGENASE 183 U/L (81-234)
--- NOTE | 2017-10-06 15:36 | Cardiology Report ---
APPROVED REPORT EXAM: Two-dimensional and M-mode echocardiogram with Doppler and color Doppler. INDICATION LV FUNCTION M-Mode DIMENSIONS IVSd1.3 (0.7-1.1cm)Left Atrium (MM)3.2 (1.6-4.0cm) LVDd4.6 (3.5-5.6cm)Aortic Root3.2 (2.0-3.7cm) PWd1.6 (0.7-1.1cm)Aortic Cusp Exc.1.8 (1.5-2.0cm) IVSs1.9 cm LVDs2.7 (2.5-4.0cm) PWs2.1 cm Normal left ventricular chamber size, systolic function and wall motion . Left ventricular ejection fraction estimated to be 65-70 %. No evidence of left ventricular hypertrophy. No evidence of pericardial effusion. All other cardiac chamber sizes are within normal limits. Focal aortic valve sclerosis with adequate cusp excursion. Thickened mitral valve leaflets with normal excursion. Mitral annulus and aortic root calcification. Pulmonic valve not well visualized. Normal tricuspid valve structure. IVC at 1.9 cm with physiologic collapse . A color flow and spectral Doppler study was performed and revealed: No aortic regurgitation. Trace mitral regurgitation. Mitral diastolic velocities suggest reduced left ventricular relaxation c/w mild LV diastolic dysfunction (Grade I ). Trace tricuspid regurgitation. Tricuspid systolic velocities suggests peak right ventricular systolic pressure of 19 mmHg
[2017-10-06] MEDS: traMADol 50mg tab ORAL PRN (15:49)
--- NOTE | 2017-10-06 16:02 | Diagnostic Imaging Report ---
Indication: Back pain Technique: MRI examination of the lumbar spine was performed in a 1.5 Caity magnet. Sequences obtained include sagittal and axial T1 and T2 fast spin echo, and sagittal STIR. Comparison: none Findings: The vertebral body heights and heights of the intervertebral discs are relatively well-maintained in height. There are mild marginal spurs and multilevel hypertrophied facets noted. Conus medullaris is normal seen at about the L1-2 disc level. T12-L1 shows circumferential wide-based disc protrusion. There is no canal stenosis centrally. There is no foraminal stenosis definite seen. L1-2 shows a unremarkable appearance of the disc. There is mild hypertrophied facets noted. No central foraminal stenosis. L2-3 shows a wide based disc extrusion resulting in narrowing of the lateral recess. There is some moderate to severe foraminal stenosis bilaterally at this level worse on the left. L3-4: There is a concentric disc bulge and moderate facet hypertrophy. Mild to moderate bilateral foraminal stenosis demonstrated. L4-5: There is a mild anterolisthesis at this level. Narrowing of the lateral recess demonstrated. Moderate to severe foraminal stenosis demonstrated mainly due to facet hypertrophy. L5-S1: Facet arthropathy demonstrated. Mild to moderate neural foraminal stenosis demonstrated. No central narrowing. IMPRESSION: Degenerative spondylosis as described above. Multilevel facet arthropathy and degenerative disc disease with variable degrees of lateral recess and neural foraminal stenosis.
[2017-10-06] MEDS ORDERED: NovoLOG Insulin Flexpen SUBQ SCH (16:30)
--- NOTE | 2017-10-06 16:43 | Cardiology Report ---
APPROVED REPORT EKG Measurement Heart [id number] Sinus tachycardia Otherwise normal ECG
--- NOTE | 2017-10-06 18:00 | History and Physical Report ---
DATE OF ADMISSION: 10/06/2017 CHIEF COMPLAINT: The patient is an 82-year-old female, who presents with chief complaint of altered mental status. HISTORY OF PRESENT ILLNESS: The patient apparently fell a week ago injuring her low back. The patient states she was waiting at the bus stop. The patient then went to a nearby ER to sit. The patient states she was waiting for a bus. Apparently, the owners of the home called [employer]. The patient was transported from the house to [facility] for altered mental status. The patient is admitted for altered mental status to rule out acute cerebrovascular accident. REVIEW OF SYSTEMS: CONSTITUTIONAL: The patient denies weight loss or weight gain. The patient denies fevers or chills. HEENT: The patient denies ear or throat pain. The patient denies headache. CARDIOVASCULAR: The patient denies palpitations or chest pain. CHEST: The patient denies wheeze or shortness of breath. ABDOMEN: The patient denies nausea, vomiting, diarrhea, or constipation. GENITOURINARY: The patient denies dysuria or increased frequency of urination. NEUROMUSCULAR: The patient denies seizures or generalized weakness. PAST MEDICAL HISTORY: Significant for: 1. Type 2 diabetes. 2. Hypertension. 3. Hypercholesterolemia. PAST SURGICAL HISTORY: Significant for total abdominal hysterectomy. CURRENT MEDICATIONS: Unknown. ALLERGIES: No known drug allergies. SOCIAL HISTORY: The patient is single and lives alone. 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 The patient denies tobacco or alcohol use. PHYSICAL EXAMINATION: VITAL SIGNS: Temperature 98.8, respirations 16, pulse 99, blood pressure 156/77. GENERAL: The patient is a well-developed, well-nourished female, in no apparent distress. HEENT: Eyes, pupils equal and responsive to light and accommodation. Extraocular movements are intact. NECK: Supple without lymphadenopathy. CHEST: Lungs are clear to auscultation bilaterally without wheezes or rales. CARDIOVASCULAR: Regular rhythm and rate. S1, S2 are normal without murmurs, rubs, or gallops. ABDOMEN: Soft, nontender, and nondistended. Positive bowel sounds. No evidence of hepatosplenomegaly. Currently, no rebound or guarding noted. EXTREMITIES: Negative for clubbing, cyanosis, or edema. RECTAL: Refused. GENITAL: Refused. NEUROLOGICAL: Cranial nerves II through XII are grossly intact without focal deficits. Motor strength is 5/5 bilaterally intact. Deep tendon reflexes are 2+, plantar. LABORATORY STUDIES: WBC 8.3, hemoglobin 7.3, hematocrit 23.9, platelets 268,000. Sodium 125, potassium 4.8, chloride 94, CO2 24, BUN 39, creatinine 2.0, glucose 430. Troponin 0.0. A CT scan of the lumbar spine was reported as no acute fracture. CT scan of the pelvis was reported as no acute fracture. An x-ray of the left femur was reported as no acute fracture. ASSESSMENT: This is an 82-year-old female with: 1. Severe anemia. 2. Hyponatremia. 3. Low back pain. 4. Radiculopathy to the left leg. 5. Hypertension. 6. Diabetes type 2. 7. Hypercholesterolemia. TREATMENT: 1. Severe anemia. A Gastroenterology consultation has been obtained with Dr. Imtiaz Marquez. Severe anemia may be secondary to gastrointestinal hemorrhage versus iron deficiency anemia. An anemia workup is pending. The patient is currently receiving 1 unit of packed RBCs. 2. Low back pain/radiculopathy. A pain management consultation has been obtained with Dr. Severino. We will follow recommendation of pain management. 3. Hyponatremia. This may be the cause of altered mental status. The patient is currently receiving intravenous fluids. The patient may have SIADH versus renal failure. We will follow recommendation of Nephrology. 4. Hypertension. The patient has been started empirically on p.r.n. clonidine. 5. Hypercholesterolemia. Kody Borja M.D. DR: Jessica JOB#: [id number] CC:
[2017-10-06] MEDS: Metoprolol Tartrate 50mg tab ORAL SCH (21:10)
[2017-10-06] MEDS: Losartan 50mg tab ORAL SCH (21:11)
[2017-10-07] VITALS (7 sets, daily range): BP systolic 108–148; BP diastolic 47–70
--- NOTE | 2017-10-07 04:30 | Consultation ---
DATE OF CONSULTATION: 10/06/2017 PAIN MANAGEMENT CONSULTATION CONSULTING PHYSICIAN: Ricci Severino M.D. REFERRING PHYSICIAN: Albert Guy M.D. PHYSICIAN REGISTERED APPRAISER: Ruma Wang CHIEF COMPLAINT: Low back pain. HISTORY OF PRESENT ILLNESS: This is an 82-year-old female who has been seen on the telemetry floor of [facility] for initial comprehensive pain management consultation. The patient was admitted under the care of Dr. Ramos complaining of lower back pain. She had been sitting with persistent lower back pain radiating into her left lower extremity. It is an acute pain that is off and on. The pain is 7/10. The pain is worse with movement, and due to this, we were consulted so that the patient would have adequate pain control while here in the hospital. Upon admission, CT scan of the lumbar spine was obtained showing no fracture, mild anterolisthesis at L4-L5 with mild narrowing of the disc and disc bulges suspected at multiple levels throughout the lumbar spine. There is hypertrophy of the lumbar facets at the multiple levels. There is suggestion of narrowing of the neural foramina severe in degree at L4-5 bilaterally. We were consulted so that the patient would have adequate pain control while here in the hospital. At this time, the patient is on morphine 2 to 4 mg IV every 4 hours as needed and had requested a dose and discussed with the patient about discontinuing morphine and starting her on tramadol. She seems to understand. She has no other complaints. PAST MEDICAL HISTORY: Hypertension. PAST SURGICAL HISTORY: Denies. MEDICATIONS: Denies taking medications as an outpatient. ALLERGIES: No known drug allergies. SOCIAL HISTORY: Denies smoking tobacco, drinking alcohol, or IV drug abuse. REVIEW OF SYSTEMS: Denies rash, fever, chills, sweating, dizziness, drowsiness, sore throat, or change in weight. No shortness of breath or chest pain. No nausea, vomiting, diarrhea, or blood in stool or urine. No bowel or bladder incontinence. No dysuria. She is complaining of low back pain. PHYSICAL EXAMINATION: GENERAL: Alert, awake, and oriented. VITAL SIGNS: Blood pressure 165/81, heart rate 96, oxygen saturation 98%, respiratory rate 16, and temperature 97.9 degrees Fahrenheit. HEENT: PERRLA. NECK: Range of motion is full in all directions. No tenderness to paracervical muscles. No adenopathy. LUNGS: Decreased breath sounds bilaterally. HEART: S1 and S2, regular. ABDOMEN: Obese. BACK: Range of motion is decreased in flexion and extension. EXTREMITIES: Upper and lower extremity range of motion is decreased due to the patient's condition. No cyanosis. No clubbing. Sensory is intact. Reflexes are not obtainable. No adenopathy. ASSESSMENT AND PLAN: This is an 82-year-old female with lumbar degenerative disc disease, lumbar spondylosis, lumbar herniated disc, and lumbar radiculopathy. At this time, we recommend the patient to have an MRI of the lumbar spine without contrast as per composition professor. We will discontinue the morphine and start the patient on Tylenol 50 mg tablet every 4 hours as needed for severe pain. The patient was discussed with Dr. Severino and Dr. Severino concurred. We will follow the patient. Thank you very much for the courtesy of this consultation. Ricci Severino M.D. RICARDA Wang DR: ALINE JOB#: [id number] CC: ASHLEY
[2017-10-07] MEDS: NovoLOG Insulin Flexpen SUBQ SCH ×4 (06:11→21:01)
[2017-10-07 07:33] LABS: BASOPHILS % (AUTO) 0.8 % (0.0-2.0); EOSINOPHILS % (AUTO) 0.7 % (0.0-3.0); HEMATOCRIT 30.7 % (37.0-47.0); HEMOGLOBIN 9.9 G/DL (12.0-16.0); LYMPHOCYTES % (AUTO) 14.8 % (20.0-45.0); MEAN CORPUSCULAR VOLUME 71 FL (80-99); MONOCYTES % (AUTO) 12.5 % (1.0-10.0); NEUTROPHILS % (AUTO) 71.2 % (45.0-75.0); PLATELET COUNT 268 K/UL (150-450); RED CELL DISTRIBUTION WIDTH 17.2 % (11.6-14.8); WHITE BLOOD COUNT 10.2 K/UL (4.8-10.8)
[2017-10-07 08:06] LABS: ALANINE AMINOTRANSFERASE 13 U/L (12-78); ALBUMIN 1.9 G/DL (3.4-5.0); ALBUMIN/GLOBULIN RATIO 0.4 (1.0-2.7); ALKALINE PHOSPHATASE 120 U/L (46-116); ANION GAP 8 mmol/L (5-15); ASPARTATE AMINO TRANSFERASE 14 U/L (15-37); BILIRUBIN,TOTAL 0.6 MG/DL (0.2-1.0); BLOOD UREA NITROGEN 40 mg/dL (7-18); CALCIUM 9.5 MG/DL (8.5-10.1); CARBON DIOXIDE 22 MMOL/L (21-32); CHLORIDE 97 MMOL/L (98-107); POTASSIUM 4.5 MMOL/L (3.5-5.1); SODIUM 127 MMOL/L (136-145)
[2017-10-07] MEDS ORDERED: Metoprolol 25mg tab ONE (08:52)
[2017-10-07] MEDS: Losartan 50mg tab ORAL SCH ×2 (09:00→20:53)
[2017-10-07] MEDS: traMADol 50mg tab ORAL PRN (09:20)
[2017-10-07] MEDS: Metoprolol Tartrate 50mg tab ORAL SCH ×2 (09:20→20:53)
[2017-10-07] MEDS: Heparin 5000 units/ml inj SUBQ SCH ×2 (09:21→21:00)
[2017-10-07 10:29] LABS: APPEARANCE,URINE CLOUDY; BILIRUBIN, URINE NEGATIVE (NEGATIVE); COLOR,URINE PALE YELLOW; GLUCOSE, URINE (UA) 4+ (NEGATIVE); KETONES,URINE NEGATIVE (NEGATIVE); LEUKOCYTE ESTERASE ,URINE 3+ (NEGATIVE); NITRITE,URINE POSITIVE (NEGATIVE); PH,URINE 5 (4.5-8.0); PROTEIN,URINE 3+ (NEGATIVE); UROBILINOGEN,URINE NORMAL MG/DL (0.0-1.0)
--- NOTE | 2017-10-07 12:21 | GI Progress Note ---
Assessment/Plan Problems: (1) Diabetes mellitus ICD Codes: E11.9 - Type 2 diabetes mellitus without complications SNOMED: 06963879 (2) Severe anemia ICD Codes: D64.9 - Anemia, unspecified SNOMED: 640267176 Status: stable Status Narrative Discussed with Dr. Marquez. Assessment/Plan EGD/colonoscopy scheduled tomorrow. - CLD now, NPO @ [place]. - Miralax prep hold all blood thinners prn transfusions ppi DM management venofer fu labs The patient was seen and examined at bedside and all new and available data was reviewed in the patients chart. I agree with the above findings, impression and plan. (Patient seen earlier today. Signature stamp does not reflect patient encounter time.). - Imtiaz Marquez MD Subjective Gastrointestinal/Abdominal: Reports: constipated Objective Last 24 Hour Vital Signs Date Time Temp Pulse Resp B/P (MAP) Pulse Ox O2 Delivery O2 Flow Rate FiO2 10/07/17 10:19 96.4 10/07/17 09:20 71 108/47 10/07/17 09:20 96.4 10/07/17 09:00 108/47 10/07/17 08:20 Room Air 10/07/17 08:00 96.4 71 16 108/47 (67) 98 96.4 10/07/17 04:00 66 10/07/17 04:00 98.6 67 20 138/70 (92) 94 98.6 10/07/17 00:00 98.0 75 20 111/63 (79) 98 98.0 10/07/17 00:00 68 10/06/17 21:11 129/54 10/06/17 21:10 81 129/54 10/06/17 21:00 Room Air 10/06/17 20:00 97.9 81 20 129/54 (79) 98 97.9 10/06/17 20:00 81 10/06/17 16:00 97.7 98 18 154/75 (101) 100 97.7 10/06/17 16:00 93 10/06/17 12:38 163/79 10/06/17 12:38 100 163/79 Intake and Output 10/06/17 10/07/17 19:00 07:00 Intake Total 680 ml 120 ml Balance 680 ml 120 ml Intake Oral 680 ml 120 ml # Voids 3 Laboratory Tests Test 8/29/18 13:00 10/07/17 05:53 10/07/17 09:52 White Blood Count 11.2 K/UL (4.8-10.8) H 10.2 K/UL (4.8-10.8) Red Blood Count 4.86 M/UL (4.20-5.40) 4.30 M/UL (4.20-5.40) Hemoglobin 11.2 G/DL (12.0-16.0) #L 9.9 G/DL (12.0-16.0) L Hematocrit 35.2 % (37.0-47.0) #L 30.7 % (37.0-47.0) L Mean Corpuscular Volume 72 FL (80-99) L 71 FL (80-99) L Mean Corpuscular Hemoglobin 23.0 PG (27.0-31.0) L 23.1 PG (27.0-31.0) L Mean Corpuscular Hemoglobin Concent 31.7 G/DL (32.0-36.0) L 32.3 G/DL (32.0-36.0) Red Cell Distribution Width 17.6 % (11.6-14.8) H 17.2 % (11.6-14.8) H Platelet Count 330 K/UL (150-450) 268 K/UL (150-450) Mean Platelet Volume 7.8 FL (6.5-10.1) 7.0 FL (6.5-10.1) Neutrophils (%) (Auto) 84.5 % (45.0-75.0) H 71.2 % (45.0-75.0) Lymphocytes (%) (Auto) 6.3 % (20.0-45.0) L 14.8 % (20.0-45.0) L Monocytes (%) (Auto) 8.6 % (1.0-10.0) 12.5 % (1.0-10.0) H Eosinophils (%) (Auto) 0.2 % (0.0-3.0) 0.7 % (0.0-3.0) Basophils (%) (Auto) 0.5 % (0.0-2.0) 0.8 % (0.0-2.0) Differential Total Cells Counted 100 Neutrophils % (Manual) 85 % (45-75) H Lymphocytes % (Manual) 5 % (20-45) L Monocytes % (Manual) 6 % (1-10) Eosinophils % (Manual) 0 % (0-3) Basophils % (Manual) 0 % (0-2) Band Neutrophils 4 % (0-8) Other Cell Type Pathologist comment Platelet Estimate Adequate Platelet Morphology Normal Hypochromasia 2+ Anisocytosis 1+ Microcytosis 2+ Erythrocyte Sedimentation Rate 88 MM/HR (0-30) H Reticulocyte Count 0.7 % (0.0-2.0) Prothrombin Time 10.7 SEC (9.30-11.50) Prothromb Time International Ratio 1.0 (0.9-1.1) Activated Partial Thromboplast Time 33 SEC (23-33) Sodium Level 129 MMOL/L (136-145) L 127 MMOL/L (136-145) L Potassium Level 4.4 MMOL/L (3.5-5.1) 4.5 MMOL/L (3.5-5.1) Chloride Level 94 MMOL/L (98-107) L 97 MMOL/L (98-107) L Carbon Dioxide Level 24 MMOL/L (21-32) 22 MMOL/L (21-32) Anion Gap 11 mmol/L (5-15) 8 mmol/L (5-15) Blood Urea Nitrogen 35 mg/dL (7-18) H 40 mg/dL (7-18) H Creatinine 2.0 MG/DL (0.55-1.30) H 2.0 MG/DL (0.55-1.30) H Estimat Glomerular Filtration Rate mL/min (>60) mL/min (>60) Glucose Level 561 MG/DL (74-106) #*H 262 MG/DL (74-106) #H Hemoglobin A1c 9.7 % (4.3-6.0) H Uric Acid 8.2 MG/DL (2.6-7.2) H Calcium Level 9.8 MG/DL (8.5-10.1) 9.5 MG/DL (8.5-10.1) Iron Level 36 ug/dL (50-175) L Total Iron Binding Capacity 264 ug/dL (250-450) Percent Iron Saturation 14 % (15-50) L Unsaturated Iron Binding 228 ug/dL (112-346) Lactate Dehydrogenase 183 U/L (81-234) Total Creatine Kinase 54 U/L (26-308) Carcinoembryonic Antigen 3.9 ng/mL (0.0-4.7) Vitamin B12 Level 923 PG/ML (193-986) Folate 12.9 NG/ML (8.6-58.9) Total Bilirubin 0.6 MG/DL (0.2-1.0) Aspartate Amino Transf (AST/SGOT) 14 U/L (15-37) L Alanine Aminotransferase (ALT/SGPT) 13 U/L (12-78) Alkaline Phosphatase 120 U/L (46-116) H Total Protein 6.9 G/DL (6.4-8.2) Total Protein (PEP) Pending Albumin 1.9 G/DL (3.4-5.0) L Albumin (PEP) Pending Globulin 5.0 g/dL Globulin (PEP) Pending Albumin/Globulin Ratio Pending Jjmar-3-Gtexfrzbc Pending Uvylw-4-Oneycvdce Pending Beta Globulins Pending Beta Gamma Globulin Pending PEP Abnormal Protein Bands Pending Protein Electrophoresis Interpret Pending Thyroid Stimulating Hormone (TSH) 1.441 uiU/mL (0.358-3.740) Urine Color Pale yellow Urine Appearance Cloudy Urine pH 5 (4.5-8.0) Urine Specific [place] 1.015 (1.005-1.035) Urine Protein 3+ (NEGATIVE) H Urine Glucose (UA) 4+ (NEGATIVE) H Urine Ketones Negative (NEGATIVE) Urine Blood 4+ (NEGATIVE) H Urine Nitrite Positive (NEGATIVE) H Urine Bilirubin Negative (NEGATIVE) Urine Urobilinogen Normal MG/DL (0.0-1.0) Urine Leukocyte Esterase 3+ (NEGATIVE) H Urine RBC 5-10 /HPF (0 - 2) H Urine WBC Tntc /HPF (0 - 2) H Urine Squamous Epithelial Cells Moderate /LPF (NONE/OCC) H Urine Bacteria Moderate /HPF (NONE) H Urine Eosinophils None seen (NONE SEEN) Urine Random Sodium 23 mmol/L (20-110) Urine Potassium Timed 31 mmol/L (12-62) Urine Total Protein Pending Urine Albumin (%) Pending Urine Dvtug-6-Bddtdhvzm (%) Pending Urine Vwypy-7-Wppzsrsno (%) Pending Urine Beta-Globulin (%) Pending Urine Gamma Globulin (%) Pending Ur Protein Electrophoresis M-Cal Pending Urine Protein Electrophoresis Intrp Pending Height (Feet): 5 Height (Inches): 4.00 Weight (Pounds): 187 General Appearance: WD/WN, no apparent distress, alert Cardiovascular: normal rate Respiratory/Chest: normal breath sounds, no respiratory distress Abdominal Exam: normal bowel sounds, non tender, soft Extremities: normal range of motion, non-tender Faustino Norton NP Oct 07, 2017 12:21
--- NOTE | 2017-10-07 12:42 | Pulmonology Progress Note ---
Assessment/Plan Problems: (1) Encephalopathy acute (2) Severe anemia (3) Renal insufficiency (4) Intractable back pain (5) Hyponatremia (6) History of hypertension Assessment/Plan s/p transfusion 2 units prbc hematology f/u pending endoscopy in am check h/h pt/ot neuro, psych evaluation Subjective ROS Limited/Unobtainable: No Constitutional: Reports: no symptoms HEENT: Repors: no symptoms Allergies: Coded Allergies: No Known Allergies (Unverified , 10/05/17) Objective Last 24 Hour Vital Signs Date Time Temp Pulse Resp B/P (MAP) Pulse Ox O2 Delivery O2 Flow Rate FiO2 10/07/17 12:00 98.4 61 16 109/68 (82) 96 98.4 10/07/17 10:19 96.4 10/07/17 09:20 71 108/47 10/07/17 09:20 96.4 10/07/17 09:00 108/47 10/07/17 08:20 Room Air 10/07/17 08:00 96.4 71 16 108/47 (67) 98 96.4 10/07/17 04:00 66 10/07/17 04:00 98.6 67 20 138/70 (92) 94 98.6 10/07/17 00:00 98.0 75 20 111/63 (79) 98 98.0 10/07/17 00:00 68 10/06/17 21:11 129/54 10/06/17 21:10 81 129/54 10/06/17 21:00 Room Air 10/06/17 20:00 97.9 81 20 129/54 (79) 98 97.9 10/06/17 20:00 81 10/06/17 16:00 97.7 98 18 154/75 (101) 100 97.7 10/06/17 16:00 93 10/06/17 12:38 163/79 10/06/17 12:38 100 163/79 Intake and Output 10/06/17 10/07/17 19:00 07:00 Intake Total 680 ml 120 ml Balance 680 ml 120 ml Intake Oral 680 ml 120 ml # Voids 3 General Appearance: WD/WN HEENT: normocephalic Respiratory/Chest: chest wall non-tender Breasts: no masses Cardiovascular: normal peripheral pulses Abdomen: normal bowel sounds, soft, non tender Genitourinary: normal external genitalia Skin: no rash 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 Laboratory Tests 10/06/17 13:00: White Blood Count 11.2H, Red Blood Count 4.86, Hemoglobin 11.2#L, Hematocrit 35.2#L, Mean Corpuscular Volume 72L, Mean Corpuscular Hemoglobin 23.0L, Mean Corpuscular Hemoglobin Concent 31.7L, Red Cell Distribution Width 17.6H, Platelet Count 330, Mean Platelet Volume 7.8, Neutrophils (%) (Auto) 84.5H, Lymphocytes (%) (Auto) 6.3L, Monocytes (%) (Auto) 8.6, Eosinophils (%) (Auto) 0.2, Basophils (%) (Auto) 0.5, Differential Total Cells Counted 100, Neutrophils % (Manual) 85H, Lymphocytes % (Manual) 5L, Monocytes % (Manual) 6, Eosinophils % (Manual) 0, Basophils % (Manual) 0, Band Neutrophils 4, Other Cell Type Pathologist comment, Platelet Estimate Adequate, Platelet Morphology Normal, Hypochromasia 2+, Anisocytosis 1+, Microcytosis 2+, Erythrocyte Sedimentation Rate 88H, Reticulocyte Count 0.7, Prothrombin Time 10.7, Prothromb Time International Ratio 1.0, Activated Partial Thromboplast Time 33, Sodium Level 129L, Potassium Level 4.4, Chloride Level 94L, Carbon Dioxide Level 24, Anion Gap 11, Blood Urea Nitrogen 35H, Creatinine 2.0H, Estimat Glomerular Filtration Rate , Glucose Level 561#*H, Hemoglobin A1c 9.7H, Uric Acid 8.2H, Calcium Level 9.8, Iron Level 36L, Total Iron Binding Capacity 264, Percent Iron Saturation 14L, Unsaturated Iron Binding 228, Lactate Dehydrogenase 183, Total Creatine Kinase 54, Carcinoembryonic Antigen 3.9, Vitamin B12 Level 923, Folate 12.9 10/07/17 05:53: White Blood Count 10.2, Red Blood Count 4.30, Hemoglobin 9.9L, Hematocrit 30.7L , Mean Corpuscular Volume 71L, Mean Corpuscular Hemoglobin 23.1L, Mean Corpuscular Hemoglobin Concent 32.3, Red Cell Distribution Width 17.2H, Platelet Count 268, Mean Platelet Volume 7.0, Neutrophils (%) (Auto) 71.2, Lymphocytes (%) (Auto) 14.8L, Monocytes (%) (Auto) 12.5H, Eosinophils (%) (Auto ) 0.7, Basophils (%) (Auto) 0.8, Sodium Level 127L, Potassium Level 4.5, Chloride Level 97L, Carbon Dioxide Level 22, Anion Gap 8, Blood Urea Nitrogen 40H, Creatinine 2.0H, Estimat Glomerular Filtration Rate , Glucose Level 262#H, Calcium Level 9.5, Total Bilirubin 0.6, Aspartate Amino Transf (AST/SGOT) 14L, Alanine Aminotransferase (ALT/SGPT) 13, Alkaline Phosphatase 120H, Total Protein 6.9, Total Protein (PEP) [Pending], Albumin 1.9L, Albumin (PEP) [Pending ], Globulin 5.0, Globulin (PEP) [Pending], Albumin/Globulin Ratio [Pending], Opayf-9-Cnebkldjq [Pending], Omfav-2-Mdhovghmt [Pending], Beta Globulins [ Pending], Beta Gamma Globulin [Pending], PEP Abnormal Protein Bands [Pending], Protein Electrophoresis Interpret [Pending], Thyroid Stimulating Hormone (TSH) 1.441 10/07/17 09:52: Urine Color Pale yellow, Urine Appearance Cloudy, Urine pH 5, Urine Specific [place] 1.015, Urine Protein 3+H, Urine Glucose (UA) 4+H, Urine Ketones Negative , Urine Blood 4+H, Urine Nitrite PositiveH, Urine Bilirubin Negative, Urine Urobilinogen Normal, Urine Leukocyte Esterase 3+H, Urine RBC 5-10H, Urine WBC TntcH, Urine Squamous Epithelial Cells ModerateH, Urine Bacteria ModerateH, Urine Eosinophils None seen, Urine Random Sodium 23, Urine Potassium Timed 31, Urine Total Protein [Pending], Urine Albumin (%) [Pending], Urine Alpha-1- Globulins (%) [Pending], Urine Mdkie-6-Xeltbmjxq (%) [Pending], Urine Beta- Globulin (%) [Pending], Urine Gamma Globulin (%) [Pending], Ur Protein Electrophoresis M-Cal [Pending], Urine Protein Electrophoresis Intrp [Pending] Current Medications Medications (Trade) Dose Ordered Sig/Lorie Route PRN Reason Start Time Stop Time Status Last Admin Dose Admin Acetaminophen (Tylenol) 650 mg Q4H PRN ORAL fever (temp>100.5F) 10/06/17 07:15 11/05/17 07:14 Al Hydroxide/Mg Hydroxide (Mylanta II) 30 ml Q6H PRN ORAL dyspepsia 10/06/17 07:15 11/05/17 07:14 Bisacodyl (Dulcolax) 10 mg ONCE ORAL 10/07/17 16:00 10/07/17 17:00 Dextrose (Dextrose 50%) 25 ml STAT PRN IV Hypoglycemia 10/06/17 07:15 11/05/17 07:14 Dextrose (Dextrose 50%) 50 ml STAT PRN IV Hypoglycemia 10/06/17 08:00 11/05/17 07:59 Heparin Sodium (Porcine) (Heparin 5000 units/ml) 5,000 units EVERY 12 HOURS SUBQ 10/06/17 09:00 11/05/17 08:59 10/07/17 09:21 Insulin Aspart (NovoLOG) BEFORE MEALS AND HS SUBQ 10/06/17 13:02 11/05/17 13:01 10/07/17 11:50 Iron Sucrose 100 mg/Sodium Chloride 60 ml @ 240 mls/hr BEDTIME IV 10/07/17 21:00 10/11/17 21:14 Lorazepam (Ativan 2mg/ml 1ml) 0.5 mg Q4H PRN IV For Anxiety 10/06/17 07:15 10/13/17 07:14 Losartan Potassium (Cozaar) 50 mg EVERY 12 HOURS ORAL 10/06/17 21:00 11/05/17 20:59 10/06/17 21:11 Metoprolol Tartrate (Lopressor) 50 mg Q12HR ORAL 10/06/17 21:00 11/05/17 20:59 10/07/17 09:20 Ondansetron HCl (Zofran) 4 mg Q6H PRN IVP Nausea & Vomiting 10/06/17 07:15 11/05/17 07:14 Polyethylene Glycol (Miralax) 17 gm HSPRN PRN ORAL Constipation 10/06/17 07:15 11/05/17 07:14 Polyethylene Glycol (Miralax) 238 gm ONCE ORAL 10/07/17 16:00 10/07/17 17:00 Tramadol HCl (Ultram) 50 mg Q4H PRN ORAL Severe Pain (Pain Scale 7-10) 10/06/17 09:00 10/13/17 08:59 10/07/17 09:20 Zolpidem Tartrate (Ambien) 5 mg HSPRN PRN ORAL Insomnia 10/06/17 07:15 10/13/17 07:14 Albert Guy MD Oct 07, 2017 12:42
--- NOTE | 2017-10-07 12:51 | General Progress Note ---
Subjective Date patient seen: Oct 07, 2017 Neurologic/Psychiatric: Reports: anxiety Allergies: Coded Allergies: No Known Allergies (Unverified , 10/05/17) Subjective the pt lives alone. was able to state the date and discuss the situation she was in. the pt unable to to give out her address. She was irritable and reluctant to discuss her living situation. Objective Last 24 Hour Vital Signs Date Time Temp Pulse Resp B/P (MAP) Pulse Ox O2 Delivery O2 Flow Rate FiO2 10/07/17 12:00 98.4 61 16 109/68 (82) 96 98.4 10/07/17 11:35 60 10/07/17 10:19 96.4 10/07/17 09:20 71 108/47 10/07/17 09:20 96.4 10/07/17 09:00 108/47 10/07/17 08:20 Room Air 10/07/17 08:00 96.4 71 16 108/47 (67) 98 96.4 10/07/17 07:37 74 10/07/17 04:00 66 10/07/17 04:00 98.6 67 20 138/70 (92) 94 98.6 10/07/17 00:00 98.0 75 20 111/63 (79) 98 98.0 10/07/17 00:00 68 10/06/17 21:11 129/54 10/06/17 21:10 81 129/54 10/06/17 21:00 Room Air 10/06/17 20:00 97.9 81 20 129/54 (79) 98 97.9 10/06/17 20:00 81 10/06/17 16:00 97.7 98 18 154/75 (101) 100 97.7 10/06/17 16:00 93 Intake and Output 10/06/17 10/07/17 19:00 07:00 Intake Total 680 ml 120 ml Balance 680 ml 120 ml Intake Oral 680 ml 120 ml # Voids 3 Laboratory Tests 10/06/17 13:00: White Blood Count 11.2H, Red Blood Count 4.86, Hemoglobin 11.2#L, Hematocrit 35.2#L, Mean Corpuscular Volume 72L, Mean Corpuscular Hemoglobin 23.0L, Mean Corpuscular Hemoglobin Concent 31.7L, Red Cell Distribution Width 17.6H, Platelet Count 330, Mean Platelet Volume 7.8, Neutrophils (%) (Auto) 84.5H, Lymphocytes (%) (Auto) 6.3L, Monocytes (%) (Auto) 8.6, Eosinophils (%) (Auto) 0.2, Basophils (%) (Auto) 0.5, Differential Total Cells Counted 100, Neutrophils % (Manual) 85H, Lymphocytes % (Manual) 5L, Monocytes % (Manual) 6, Eosinophils % (Manual) 0, Basophils % (Manual) 0, Band Neutrophils 4, Other Cell Type Pathologist comment, Platelet Estimate Adequate, Platelet Morphology Normal, Hypochromasia 2+, Anisocytosis 1+, Microcytosis 2+, Erythrocyte Sedimentation Rate 88H, Reticulocyte Count 0.7, Prothrombin Time 10.7, Prothromb Time International Ratio 1.0, Activated Partial Thromboplast Time 33, Sodium Level 129L, Potassium Level 4.4, Chloride Level 94L, Carbon Dioxide Level 24, Anion Gap 11, Blood Urea Nitrogen 35H, Creatinine 2.0H, Estimat Glomerular Filtration Rate , Glucose Level 561#*H, Hemoglobin A1c 9.7H, Uric Acid 8.2H, Calcium Level 9.8, Iron Level 36L, Total Iron Binding Capacity 264, Percent Iron Saturation 14L, Unsaturated Iron Binding 228, Lactate Dehydrogenase 183, Total Creatine Kinase 54, Carcinoembryonic Antigen 3.9, Vitamin B12 Level 923, Folate 12.9 10/07/17 05:53: White Blood Count 10.2, Red Blood Count 4.30, Hemoglobin 9.9L, Hematocrit 30.7L , Mean Corpuscular Volume 71L, Mean Corpuscular Hemoglobin 23.1L, Mean Corpuscular Hemoglobin Concent 32.3, Red Cell Distribution Width 17.2H, Platelet Count 268, Mean Platelet Volume 7.0, Neutrophils (%) (Auto) 71.2, Lymphocytes (%) (Auto) 14.8L, Monocytes (%) (Auto) 12.5H, Eosinophils (%) (Auto ) 0.7, Basophils (%) (Auto) 0.8, Sodium Level 127L, Potassium Level 4.5, Chloride Level 97L, Carbon Dioxide Level 22, Anion Gap 8, Blood Urea Nitrogen 40H, Creatinine 2.0H, Estimat Glomerular Filtration Rate , Glucose Level 262#H, Calcium Level 9.5, Total Bilirubin 0.6, Aspartate Amino Transf (AST/SGOT) 14L, Alanine Aminotransferase (ALT/SGPT) 13, Alkaline Phosphatase 120H, Total Protein 6.9, Total Protein (PEP) [Pending], Albumin 1.9L, Albumin (PEP) [Pending ], Globulin 5.0, Globulin (PEP) [Pending], Albumin/Globulin Ratio [Pending], Gpvko-1-Zfcpypqdn [Pending], Mtofr-0-Ruiqwkhjy [Pending], Beta Globulins [ Pending], Beta Gamma Globulin [Pending], PEP Abnormal Protein Bands [Pending], Protein Electrophoresis Interpret [Pending], Thyroid Stimulating Hormone (TSH) 1.441 10/07/17 09:52: Urine Color Pale yellow, Urine Appearance Cloudy, Urine pH 5, Urine Specific [place] 1.015, Urine Protein 3+H, Urine Glucose (UA) 4+H, Urine Ketones Negative , Urine Blood 4+H, Urine Nitrite PositiveH, Urine Bilirubin Negative, Urine Urobilinogen Normal, Urine Leukocyte Esterase 3+H, Urine RBC 5-10H, Urine WBC TntcH, Urine Squamous Epithelial Cells ModerateH, Urine Bacteria ModerateH, Urine Eosinophils None seen, Urine Random Sodium 23, Urine Potassium Timed 31, Urine Total Protein [Pending], Urine Albumin (%) [Pending], Urine Alpha-1- Globulins (%) [Pending], Urine Sqggr-7-Rpdqewfdw (%) [Pending], Urine Beta- Globulin (%) [Pending], Urine Gamma Globulin (%) [Pending], Ur Protein Electrophoresis M-Cal [Pending], Urine Protein Electrophoresis Intrp [Pending] Height (Feet): 5 Height (Inches): 4.00 Weight (Pounds): 187 General Appearance: no apparent distress, alert Eli Montana MD Oct 07, 2017 12:51
--- NOTE | 2017-10-07 13:58 | Diagnostic Imaging Report ---
APPROVED REPORT CPT Code: 33001 Vascular Symptoms Syncope Doppler Spectral Velocity Analysis RightLeft BILATERAL: CCA - Imaging reveals no significant plaque in the right and left common external carotid arteries. The Doppler signal indicates the degree of stenosis is minimal (5% - 10%) in the internal and external carotid arteries. VERTEBRAL- The vertebral arteries are patent without evidence of stenosis or steal. Note: The left ICA is coilled.
[2017-10-07] MEDS ORDERED: Polyethylene Glycol 238gm bottle ORAL SCH (16:00)
[2017-10-07] MEDS ORDERED: Magnesium Citrate Liq Btl ORAL SCH (16:00)
[2017-10-07] MEDS ORDERED: Bisacodyl EC 5mg tab ORAL SCH (16:00)
[2017-10-07] MEDS: Miralax 17gm pkt ORAL PRN ×2 (17:04→17:06)
--- NOTE | 2017-10-07 18:02 | General Progress Note ---
Assessment/Plan Assessment/Plan (1) Lumbar degenerative disc disease (2) Lumbar spondylosis (3) Lumbar herniated disc (4) Lumbar radiculopathy Patient to be continued on Tramadol D/w Dr. Severino and he concurred. Subjective Date patient seen: Oct 07, 2017 Time patient seen: 05:45 - pm Allergies: Coded Allergies: No Known Allergies (Unverified , 10/05/17) Subjective REVIEW OF SYSTEMS: Denies rash, fever, chills, sweating, dizziness, drowsiness, sore throat, or change in weight. No shortness of breath or chest pain. No nausea, vomiting, diarrhea, or blood in stool or urine. No bowel or bladder incontinence. No dysuria. She is complaining of low back pain. SUBJECTIVE: Patients pain is tolerated on the Tramadol reduced from an 8/10 to a 5/10. Doing PT to the best of her abilities. MRI was reviewed. Objective Last 24 Hour Vital Signs Date Time Temp Pulse Resp B/P (MAP) Pulse Ox O2 Delivery O2 Flow Rate FiO2 10/07/17 12:00 98.4 61 16 109/68 (82) 96 98.4 10/07/17 11:35 60 10/07/17 10:19 96.4 10/07/17 09:20 71 108/47 10/07/17 09:20 96.4 10/07/17 09:00 108/47 10/07/17 08:20 Room Air 10/07/17 08:00 96.4 71 16 108/47 (67) 98 96.4 10/07/17 07:37 74 10/07/17 04:00 66 10/07/17 04:00 98.6 67 20 138/70 (92) 94 98.6 10/07/17 00:00 98.0 75 20 111/63 (79) 98 98.0 10/07/17 00:00 68 10/06/17 21:11 129/54 10/06/17 21:10 81 129/54 10/06/17 21:00 Room Air 10/06/17 20:00 97.9 81 20 129/54 (79) 98 97.9 10/06/17 20:00 81 Intake and Output 10/06/17 10/07/17 19:00 07:00 Intake Total 680 ml 120 ml Balance 680 ml 120 ml Intake Oral 680 ml 120 ml # Voids 3 Laboratory Tests 10/07/17 05:53: White Blood Count 10.2, Red Blood Count 4.30, Hemoglobin 9.9L, Hematocrit 30.7L , Mean Corpuscular Volume 71L, Mean Corpuscular Hemoglobin 23.1L, Mean Corpuscular Hemoglobin Concent 32.3, Red Cell Distribution Width 17.2H, Platelet Count 268, Mean Platelet Volume 7.0, Neutrophils (%) (Auto) 71.2, Lymphocytes (%) (Auto) 14.8L, Monocytes (%) (Auto) 12.5H, Eosinophils (%) (Auto ) 0.7, Basophils (%) (Auto) 0.8, Sodium Level 127L, Potassium Level 4.5, Chloride Level 97L, Carbon Dioxide Level 22, Anion Gap 8, Blood Urea Nitrogen 40H, Creatinine 2.0H, Estimat Glomerular Filtration Rate , Glucose Level 262#H, Calcium Level 9.5, Total Bilirubin 0.6, Aspartate Amino Transf (AST/SGOT) 14L, Alanine Aminotransferase (ALT/SGPT) 13, Alkaline Phosphatase 120H, Total Protein 6.9, Total Protein (PEP) [Pending], Albumin 1.9L, Albumin (PEP) [Pending ], Globulin 5.0, Globulin (PEP) [Pending], Albumin/Globulin Ratio [Pending], Gmumd-9-Gwsfdtcnx [Pending], Bhyov-5-Poezphvzd [Pending], Beta Globulins [ Pending], Beta Gamma Globulin [Pending], PEP Abnormal Protein Bands [Pending], Protein Electrophoresis Interpret [Pending], Thyroid Stimulating Hormone (TSH) 1.441 10/07/17 09:52: Urine Color Pale yellow, Urine Appearance Cloudy, Urine pH 5, Urine Specific [place] 1.015, Urine Protein 3+H, Urine Glucose (UA) 4+H, Urine Ketones Negative , Urine Blood 4+H, Urine Nitrite PositiveH, Urine Bilirubin Negative, Urine Urobilinogen Normal, Urine Leukocyte Esterase 3+H, Urine RBC 5-10H, Urine WBC TntcH, Urine Squamous Epithelial Cells ModerateH, Urine Bacteria ModerateH, Urine Eosinophils None seen, Urine Random Sodium 23, Urine Potassium Timed 31, Urine Total Protein [Pending], Urine Albumin (%) [Pending], Urine Alpha-1- Globulins (%) [Pending], Urine Ocjcs-4-Highwxpnj (%) [Pending], Urine Beta- Globulin (%) [Pending], Urine Gamma Globulin (%) [Pending], Ur Protein Electrophoresis M-Cal [Pending], Urine Protein Electrophoresis Intrp [Pending] Height (Feet): 5 Height (Inches): 4.00 Weight (Pounds): 187 Objective GENERAL: Alert, awake, and oriented. HEENT: PERRLA. LUNGS: Decreased breath sounds bilaterally. HEART: S1 and S2, regular. ABDOMEN: Obese. EXTREMITIES: No cyanosis. No clubbing. NEURO: No changes. Procedure: MRI L Spine no Contrast Indication: Back pain Technique: MRI examination of the lumbar spine was performed in a 1.5 Caity magnet. Sequences obtained include sagittal and axial T1 and T2 fast spin echo, and sagittal STIR. Comparison: none Findings: The vertebral body heights and heights of the intervertebral discs are relatively well-maintained in height. There are mild marginal spurs and multilevel hypertrophied facets noted. Conus medullaris is normal seen at about the L1-2 disc level. T12-L1 shows circumferential wide-based disc protrusion. There is no canal stenosis centrally. There is no foraminal stenosis definite seen. L1-2 shows a unremarkable appearance of the disc. There is mild hypertrophied facets noted. No central foraminal stenosis. L2-3 shows a wide based disc extrusion resulting in narrowing of the lateral recess. There is some moderate to severe foraminal stenosis bilaterally at this level worse on the left. L3-4: There is a concentric disc bulge and moderate facet hypertrophy. Mild to moderate bilateral foraminal stenosis demonstrated. L4-5: There is a mild anterolisthesis at this level. Narrowing of the lateral recess demonstrated. Moderate to severe foraminal stenosis demonstrated mainly due to facet hypertrophy. L5-S1: Facet arthropathy demonstrated. Mild to moderate neural foraminal stenosis demonstrated. No central narrowing. IMPRESSION: Degenerative spondylosis as described above. Multilevel facet arthropathy and degenerative disc disease with variable degrees of lateral recess and neural foraminal stenosis. Thai Husain Oct 07, 2017 18:02
--- NOTE | 2017-10-07 19:09 | Internal Med Progress Note ---
Subjective Date of Service: Oct 07, 2017 Physician Name Kody Borja Attending Physician Michael Ramos MD Current Medications Medications (Trade) Dose Ordered Sig/Lorie Route PRN Reason Start Time Stop Time Status Last Admin Dose Admin Acetaminophen (Tylenol) 650 mg Q4H PRN ORAL fever (temp>100.5F) 10/06/17 07:15 11/05/17 07:14 Al Hydroxide/Mg Hydroxide (Mylanta II) 30 ml Q6H PRN ORAL dyspepsia 10/06/17 07:15 11/05/17 07:14 Dextrose (Dextrose 50%) 25 ml STAT PRN IV Hypoglycemia 10/06/17 07:15 11/05/17 07:14 Dextrose (Dextrose 50%) 50 ml STAT PRN IV Hypoglycemia 10/06/17 08:00 11/05/17 07:59 Heparin Sodium (Porcine) (Heparin 5000 units/ml) 5,000 units EVERY 12 HOURS SUBQ 10/06/17 09:00 11/05/17 08:59 10/07/17 09:21 Insulin Aspart (NovoLOG) BEFORE MEALS AND HS SUBQ 10/06/17 13:02 11/05/17 13:01 10/07/17 17:05 Iron Sucrose 100 mg/Sodium Chloride 60 ml @ 240 mls/hr BEDTIME IV 10/07/17 21:00 10/11/17 21:14 Lorazepam (Ativan 2mg/ml 1ml) 0.5 mg Q4H PRN IV For Anxiety 10/06/17 07:15 10/13/17 07:14 Losartan Potassium (Cozaar) 50 mg EVERY 12 HOURS ORAL 10/06/17 21:00 11/05/17 20:59 10/06/17 21:11 Metoprolol Tartrate (Lopressor) 50 mg Q12HR ORAL 10/06/17 21:00 11/05/17 20:59 10/07/17 09:20 Ondansetron HCl (Zofran) 4 mg Q6H PRN IVP Nausea & Vomiting 10/06/17 07:15 11/05/17 07:14 Polyethylene Glycol (Miralax) 17 gm HSPRN PRN ORAL Constipation 10/06/17 07:15 11/05/17 07:14 10/07/17 17:04 Tramadol HCl (Ultram) 50 mg Q4H PRN ORAL Severe Pain (Pain Scale 7-10) 10/06/17 09:00 10/13/17 08:59 10/07/17 09:20 Zolpidem Tartrate (Ambien) 5 mg HSPRN PRN ORAL Insomnia 10/06/17 07:15 10/13/17 07:14 Allergies: Coded Allergies: No Known Allergies (Unverified , 10/05/17) ROS Limited/Unobtainable: No Constitutional: Reports: no symptoms HEENT: Reports: no symptoms Cardiovascular: Reports: no symptoms Respiratory: Reports: no symptoms Gastrointestinal/Abdominal: Reports: no symptoms Genitourinary: Reports: no symptoms Neurologic/Psychiatric: Reports: other Subjective 82 YO F admitted with altered mental status. Now severe anemia. Cover for Int Med-Dr Ramos. EGD/colonoscopy scheduled tomorrow 10/08/17. Objective Last Vital Signs Date Time Temp Pulse Resp B/P (MAP) Pulse Ox O2 Delivery O2 Flow Rate FiO2 10/07/17 16:00 100.0 65 16 129/60 (83) 99 100.0 10/07/17 08:20 Room Air General Appearance: WD/WN, no apparent distress, alert EENT: PERRL/EOMI, normal ENT inspection Neck: non-tender, normal alignment, supple Cardiovascular: normal peripheral pulses, normal rate, regular rhythm, no gallop/murmur, no JVD Respiratory/Chest: chest wall non-tender, lungs clear, normal breath sounds, no respiratory distress, no accessory muscle use Abdomen: normal bowel sounds, non tender, soft, no organomegaly, no mass Extremities: normal range of motion, non-tender Neurologic: completion engineer II-XII grossly normal, no motor/sensory deficits Skin: normal pigmentation, warm/dry Laboratory Tests Test 10/07/17 05:53 10/07/17 09:52 White Blood Count 10.2 K/UL (4.8-10.8) Red Blood Count 4.30 M/UL (4.20-5.40) Hemoglobin 9.9 G/DL (12.0-16.0) L Hematocrit 30.7 % (37.0-47.0) L Mean Corpuscular Volume 71 FL (80-99) L Mean Corpuscular Hemoglobin 23.1 PG (27.0-31.0) L Mean Corpuscular Hemoglobin Concent 32.3 G/DL (32.0-36.0) Red Cell Distribution Width 17.2 % (11.6-14.8) H Platelet Count 268 K/UL (150-450) Mean Platelet Volume 7.0 FL (6.5-10.1) Neutrophils (%) (Auto) 71.2 % (45.0-75.0) Lymphocytes (%) (Auto) 14.8 % (20.0-45.0) L Monocytes (%) (Auto) 12.5 % (1.0-10.0) H Eosinophils (%) (Auto) 0.7 % (0.0-3.0) Basophils (%) (Auto) 0.8 % (0.0-2.0) Sodium Level 127 MMOL/L (136-145) L Potassium Level 4.5 MMOL/L (3.5-5.1) Chloride Level 97 MMOL/L (98-107) L Carbon Dioxide Level 22 MMOL/L (21-32) Anion Gap 8 mmol/L (5-15) Blood Urea Nitrogen 40 mg/dL (7-18) H Creatinine 2.0 MG/DL (0.55-1.30) H Estimat Glomerular Filtration Rate mL/min (>60) Glucose Level 262 MG/DL (74-106) #H Calcium Level 9.5 MG/DL (8.5-10.1) Total Bilirubin 0.6 MG/DL (0.2-1.0) Aspartate Amino Transf (AST/SGOT) 14 U/L (15-37) L Alanine Aminotransferase (ALT/SGPT) 13 U/L (12-78) Alkaline Phosphatase 120 U/L (46-116) H Total Protein 6.9 G/DL (6.4-8.2) Total Protein (PEP) Pending Albumin 1.9 G/DL (3.4-5.0) L Albumin (PEP) Pending Globulin 5.0 g/dL Globulin (PEP) Pending Albumin/Globulin Ratio Pending Uecsr-6-Gxhanicgu Pending Yxrab-7-Gifbbzzfg Pending Beta Globulins Pending Beta Gamma Globulin Pending PEP Abnormal Protein Bands Pending Protein Electrophoresis Interpret Pending Thyroid Stimulating Hormone (TSH) 1.441 uiU/mL (0.358-3.740) Urine Color Pale yellow Urine Appearance Cloudy Urine pH 5 (4.5-8.0) Urine Specific [place] 1.015 (1.005-1.035) Urine Protein 3+ (NEGATIVE) H Urine Glucose (UA) 4+ (NEGATIVE) H Urine Ketones Negative (NEGATIVE) Urine Blood 4+ (NEGATIVE) H Urine Nitrite Positive (NEGATIVE) H Urine Bilirubin Negative (NEGATIVE) Urine Urobilinogen Normal MG/DL (0.0-1.0) Urine Leukocyte Esterase 3+ (NEGATIVE) H Urine RBC 5-10 /HPF (0 - 2) H Urine WBC Tntc /HPF (0 - 2) H Urine Squamous Epithelial Cells Moderate /LPF (NONE/OCC) H Urine Bacteria Moderate /HPF (NONE) H Urine Eosinophils None seen (NONE SEEN) Urine Random Sodium 23 mmol/L (20-110) Urine Potassium Timed 31 mmol/L (12-62) Urine Total Protein Pending Urine Albumin (%) Pending Urine Evhyl-6-Junjdabgm (%) Pending Urine Umdbp-5-Aoeascqjz (%) Pending Urine Beta-Globulin (%) Pending Urine Gamma Globulin (%) Pending Ur Protein Electrophoresis M-Cal Pending Urine Protein Electrophoresis Intrp Pending Intake and Output 10/06/17 10/07/17 19:00 07:00 Intake Total 680 ml 120 ml Balance 680 ml 120 ml Intake Oral 680 ml 120 ml # Voids 3 Assessment/Plan Problem List: (1) Hypercholesteremia (2) Radiculopathy of leg Assessment & Plan: See pain management note. (3) Encephalopathy acute (4) Intractable back pain Assessment & Plan: See pain management note. (5) Diabetes mellitus Assessment & Plan: Continue novolog sliding scale. (6) Hypertension (7) Severe anemia Assessment & Plan: Await endoscopy and colonoscopy tomorrow 10/08/17. (8) Lumbar stenosis (9) Spondylolisthesis at L4-L5 level Status: not improved Kody Borja MD Oct 07, 2017 19:09
[2017-10-07] MEDS ORDERED: Iron Sucrose 100 MG in NS 55 ML IV SCH (21:00)
--- NOTE | 2017-10-07 21:30 | Consultation ---
DATE OF CONSULTATION: 10/06/2017 NOTE: POOR AUDIO HEMATOLOGY/ONCOLOGY CONSULTATION CONSULTING PHYSICIAN: Florencio Moore M.D. REQUESTING PHYSICIAN: Kody Borja M.D. REASON FOR CONSULTATION: Evaluation of ongoing anemia and microcytosis, hemoglobin 7.3 on presentation. IDENTIFYING DATA: Dear Dr. Borja, The patient is a pleasant 82-year-old female, who has been seen on telemetry floor for initial comprehensive evaluation of pain disorder, presents with back pain, has been having significant back pain, left lower extremity and acute pain on and off, pain is 10/10. CAT scan of the lumbar spine obtained showed no fracture, mild anterolisthesis, L4-L5 malunion disc and disc bulges. Hematology Service was consulted given ongoing anemia, has been seen by Pulmonary team as well, GI Service as well and brought in again by the department, is awake and oriented, has had multiple colonoscopies over the past five years, and again might be anemic, transfused with blood and currently hemoglobin is improving. PAST MEDICAL HISTORY: Hypertension. PAST SURGICAL HISTORY: None noted. MEDICATIONS: Heparin , tramadol, zolpidem, metoprolol, losartan, , dextrose and water, aluminum hydroxide, and Tylenol. REVIEW OF SYSTEMS: CONSTITUTIONAL: No fever, chills, or night sweats. SKIN: No rashes, bumps, or itching. HEENT: No headache, hearing or visual changes. BREASTS: No lumps, pain, or discharge. PULMONARY: No cough, sputum, or shortness of breath. GASTROINTESTINAL: No nausea, vomiting, or diarrhea. GENITOURINARY: No dysuria, frequency, or urgency. MUSCULOSKELETAL: No joint swelling, muscle pain, or trauma. PHYSICAL EXAMINATION: VITAL SIGNS: Reviewed. GENERAL: No acute distress. LUNGS: Decreased breath sounds. CARDIOVASCULAR: Regular rate. No S3 or S4. ABDOMEN: Soft, nontender, and nondistended. EXTREMITIES: No swelling or edema noted. LABORATORY AND DIAGNOSTIC DATA: Labs reviewed. Currently, WBC 11.3 and hemoglobin 11.2 after transfusion. INR of 1. Chemistry reviewed, glucose 561. B12 is pending. Total protein 9.4. Albumin 2.5. B12 actually is 923. Folic acid 12.9. BUN of 39 and creatinine of 2. 14 and TIBC 264. Imaging, MRI of the spine reviewed and anterolisthesis noted. CT scan of the abdomen and pelvis shows left inguinal hernia in addition to CT scan of the spine, which shows no acute changes, DJD at the lumbar spine noted. ASSESSMENT AND RECOMMENDATIONS: 1. Anemia due to iron deficiency. Medications have been reviewed. The patient currently is on heparin, has been transfused, administered IV iron. At this time, administered Venofer for total 5 days in addition to rule out GI bleed. The patient has been seen by GI Service, Dr. Marquez and and possible EGD and colonoscopy this Wednesday. At this time, continue the patient on iron treatment. In addition, obtain serum protein electrophoresis and urine protein electrophoresis given elevated protein and decreased albumin. 2. Protein albumin dissociation. Obtain serum and urine protein electrophoresis. 3. Thrombocytosis, likely secondary to reactive process. 4. Microcytosis, rule out GI bleed. CEA is pending at this time. 5. Hyperglycemia, potentially related to diabetes. Consider Endocrinology evaluation. 6. Lower spinal pain, has been seen by Dr. Ricci Severino with lumbar spondylosis, degenerative joint disease, and currently is on Tylenol and tramadol. I appreciate the consultation. Florencio Moore M.D. DR: MAKI JOB#: [id number] CC:
[2017-10-07] MEDS ORDERED: Fleet's Enema 133ml RECTAL SCH (23:30)
[2017-10-08] VITALS (9 sets, daily range): BP systolic 109–178; BP diastolic 52–92
[2017-10-08] MEDS: NovoLOG Insulin Flexpen SUBQ SCH ×4 (06:15→21:30)
[2017-10-08] MEDS ORDERED: Fleet's Enema 133ml RECTAL SCH ×3 (06:15→11:15)
[2017-10-08 07:48] LABS: BASOPHILS % (AUTO) 0.7 % (0.0-2.0); EOSINOPHILS % (AUTO) 0.8 % (0.0-3.0); HEMATOCRIT 32.5 % (37.0-47.0); LYMPHOCYTES % (AUTO) 7.5 % (20.0-45.0); MEAN CORPUSCULAR VOLUME 72 FL (80-99); MONOCYTES % (AUTO) 6.9 % (1.0-10.0); NEUTROPHILS % (AUTO) 84.1 % (45.0-75.0); PLATELET COUNT 268 K/UL (150-450); WHITE BLOOD COUNT 12.9 K/UL (4.8-10.8)
[2017-10-08 08:22] LABS: ANION GAP 8 mmol/L (5-15); BLOOD UREA NITROGEN 36 mg/dL (7-18); CALCIUM 9.7 MG/DL (8.5-10.1); CARBON DIOXIDE 24 MMOL/L (21-32); CHLORIDE 97 MMOL/L (98-107); CREATININE 1.9 MG/DL (0.55-1.30); POTASSIUM 4.2 MMOL/L (3.5-5.1); SODIUM 129 MMOL/L (136-145)
[2017-10-08] MEDS ORDERED: LR 1000ml 1,000 ML IVLG SCH (08:27)
--- NOTE | 2017-10-08 08:27 | Anethesia Preoperative Eval ---
Anesthesia Pre-op PMH/ROS General Date of Evaluation: Oct 08, 2017 Anesthesiologist: Rodríguez ASA Score: ASA 3 Mallampati Score Class I : Soft palate, uvula, fauces, pillars visible Class II: Soft palate, uvula, fauces visible Class III: Soft palate, base of uvula visible Class IV: Only hard plate visible Mallampati Classification: Class III Surgeon: Jimmy Diagnosis: possible GI bleed Surgical Procedure: EGd and colonoscopy Anesthesia History: none Family History: no anesthesia problems Allergies: Coded Allergies: No Known Allergies (Unverified , 10/05/17) Medications: see eMAR Past Medical History Cardiovascular: Reports: HTN, other - HLD; Denies: CAD, DC, valve dz, arrhythmia Pulmonary: Denies: asthma, COPD, TALA, other Gastrointestinal/Genitourinary: Denies: GERD, CRI, ESRD, other Neurologic/Psychiatric: Denies: dementia, CVA, depression/anxiety, TIA, other Endocrine: Reports: DM; Denies: hypothyroidism, steroids, other HEENT: Denies: cataract (L), cataract (R), glaucoma, [place] (L), [place] (R), other Hematology/Immune: Reports: anemia - ? GI bleed; Denies: DVT, bleeding disorder, other Musculoskeletal/Integumentary: Reports: other - LBP s/p fall; Denies: OA, RA, DJD, DDD, edema Other: obesity PSxH Narrative: ANDREA Anesthesia Pre-op Phys. Exam Physician Exam Last Vital Signs Date Time Temp Pulse Resp B/P (MAP) Pulse Ox O2 Delivery O2 Flow Rate FiO2 10/08/17 04:00 75 10/08/17 04:00 98.0 20 112/52 (72) 97 98.0 10/07/17 21:00 Room Air Constitutional: NAD Cardiovascular: RRR Respiratory: CTA Airway Exam Mallampati Score: Class III Anesthesia Pre-op A/P Labs Hematology Test 10/08/17 07:00 White Blood Count 12.9 K/UL (4.8-10.8) H Red Blood Count 4.50 M/UL (4.20-5.40) Hemoglobin 11.0 G/DL (12.0-16.0) L Hematocrit 32.5 % (37.0-47.0) L Mean Corpuscular Volume 72 FL (80-99) L Mean Corpuscular Hemoglobin 24.4 PG (27.0-31.0) L Mean Corpuscular Hemoglobin Concent 33.8 G/DL (32.0-36.0) Red Cell Distribution Width 18.0 % (11.6-14.8) H Platelet Count 268 K/UL (150-450) Mean Platelet Volume 7.5 FL (6.5-10.1) Neutrophils (%) (Auto) 84.1 % (45.0-75.0) H Lymphocytes (%) (Auto) 7.5 % (20.0-45.0) L Monocytes (%) (Auto) 6.9 % (1.0-10.0) Eosinophils (%) (Auto) 0.8 % (0.0-3.0) Basophils (%) (Auto) 0.7 % (0.0-2.0) Coagulation Test 10/08/17 07:00 Prothrombin Time Pending Prothromb Time International Ratio Pending Activated Partial Thromboplast Time Pending Chemistry Test 10/08/17 07:00 Sodium Level 129 MMOL/L (136-145) L Potassium Level 4.2 MMOL/L (3.5-5.1) Chloride Level 97 MMOL/L (98-107) L Carbon Dioxide Level 24 MMOL/L (21-32) Anion Gap 8 mmol/L (5-15) Blood Urea Nitrogen 36 mg/dL (7-18) H Creatinine 1.9 MG/DL (0.55-1.30) H Estimat Glomerular Filtration Rate mL/min (>60) Glucose Level 201 MG/DL (74-106) H Calcium Level 9.7 MG/DL (8.5-10.1) Studies Pre-op Studies: EKG - sr Risk Assessment & Plan Assessment: ASA III Plan: MAC Status Change Before Surgery: No Pre-Antibiotics Drug: N/A Geno Ferguson MD Oct 08, 2017 08:27
[2017-10-08] MEDS ORDERED: Labetalol 5mg/ml 20ml vial IV PRN (08:30)
[2017-10-08] MEDS ORDERED: DiphenhydrAMINE 50mg/ml Inj IVP PRN (08:30)
--- NOTE | 2017-10-08 08:55 | General Progress Note ---
Assessment/Plan Assessment/Plan (1) Lumbar degenerative disc disease (2) Lumbar spondylosis (3) Lumbar herniated disc (4) Lumbar radiculopathy Patient to be continued on Tramadol D/w Dr. Severino and he concurred. Subjective Date patient seen: Oct 08, 2017 Time patient seen: 07:00 - am Allergies: Coded Allergies: No Known Allergies (Unverified , 10/05/17) Subjective REVIEW OF SYSTEMS: Denies rash, fever, chills, sweating, dizziness, drowsiness, sore throat, or change in weight. No shortness of breath or chest pain. No nausea, vomiting, diarrhea, or blood in stool or urine. No bowel or bladder incontinence. No dysuria. She is complaining of low back pain. SUBJECTIVE: Patient is in bed and the pain has been tolerated on the tramadol. She has no new complaints. Objective Last 24 Hour Vital Signs Date Time Temp Pulse Resp B/P (MAP) Pulse Ox O2 Delivery O2 Flow Rate FiO2 10/08/17 04:00 75 10/08/17 04:00 98.0 67 20 112/52 (72) 97 98.0 10/08/17 00:00 66 10/07/17 23:37 99.0 71 20 123/69 (87) 94 99.0 10/07/17 21:00 Room Air 10/07/17 20:53 74 148/67 10/07/17 20:53 148/67 10/07/17 20:00 71 10/07/17 20:00 98.4 74 20 148/67 (94) 98 98.4 10/07/17 16:00 100.0 65 16 129/60 (83) 99 100.0 10/07/17 15:37 65 10/07/17 12:00 98.4 61 16 109/68 (82) 96 98.4 10/07/17 11:35 60 10/07/17 10:19 96.4 10/07/17 09:20 71 108/47 10/07/17 09:20 96.4 10/07/17 09:00 108/47 Intake and Output 10/07/17 10/08/17 19:00 07:00 Intake Total 1700 ml 60 ml Balance 1700 ml 60 ml Intake Oral 1700 ml IV Total 60 ml # Voids 6 3 # Bowel Movements 5 Laboratory Tests 10/07/17 09:52: Urine Color Pale yellow, Urine Appearance Cloudy, Urine pH 5, Urine Specific [place] 1.015, Urine Protein 3+H, Urine Glucose (UA) 4+H, Urine Ketones Negative , Urine Blood 4+H, Urine Nitrite PositiveH, Urine Bilirubin Negative, Urine Urobilinogen Normal, Urine Leukocyte Esterase 3+H, Urine RBC 5-10H, Urine WBC TntcH, Urine Squamous Epithelial Cells ModerateH, Urine Bacteria ModerateH, Urine Eosinophils None seen, Urine Random Sodium 23, Urine Potassium Timed 31, Urine Total Protein [Pending], Urine Albumin (%) [Pending], Urine Alpha-1- Globulins (%) [Pending], Urine Lhiit-0-Jfoasdads (%) [Pending], Urine Beta- Globulin (%) [Pending], Urine Gamma Globulin (%) [Pending], Ur Protein Electrophoresis M-Cal [Pending], Urine Protein Electrophoresis Intrp [Pending] 10/07/17 21:30: Stool Occult Blood [Pending] 10/08/17 07:00: White Blood Count 12.9H, Red Blood Count 4.50, Hemoglobin 11.0L, Hematocrit 32.5L, Mean Corpuscular Volume 72L, Mean Corpuscular Hemoglobin 24.4L, Mean Corpuscular Hemoglobin Concent 33.8, Red Cell Distribution Width 18.0H, Platelet Count 268, Mean Platelet Volume 7.5, Neutrophils (%) (Auto) 84.1H, Lymphocytes (%) (Auto) 7.5L, Monocytes (%) (Auto) 6.9, Eosinophils (%) (Auto) 0.8, Basophils (%) (Auto) 0.7, Prothrombin Time 10.9, Prothromb Time International Ratio 1.0, Activated Partial Thromboplast Time 34H, Sodium Level 129L, Potassium Level 4.2, Chloride Level 97L, Carbon Dioxide Level 24, Anion Gap 8, Blood Urea Nitrogen 36H, Creatinine 1.9H, Estimat Glomerular Filtration Rate , Glucose Level 201H, Calcium Level 9.7 Height (Feet): 5 Height (Inches): 4.00 Weight (Pounds): 187 Objective GENERAL: Alert, awake, and oriented. HEENT: PERRLA. LUNGS: Decreased breath sounds bilaterally. HEART: S1 and S2, regular. ABDOMEN: Obese. EXTREMITIES: No cyanosis. No clubbing. NEURO: No changes. Thai Husain Oct 08, 2017 08:55
[2017-10-08] MEDS: Losartan 50mg tab ORAL SCH ×2 (09:00→21:28)
[2017-10-08] MEDS: Heparin 5000 units/ml inj SUBQ SCH ×2 (09:00→21:30)
[2017-10-08] MEDS: Metoprolol Tartrate 50mg tab ORAL SCH ×2 (09:00→21:29)
--- NOTE | 2017-10-08 09:31 | General Progress Note ---
Assessment/Plan Assessment/Plan ASSESSMENT AND RECOMMENDATIONS: #. Anemia due to iron deficiency. Medications have been reviewed. The patient currently is on iron, has been transfused, administered IV iron --> At this time, administered Venofer for total 5 days in addition to rule out GI bleed. --> The patient has been seen by GI Service, Dr. Marquez possible EGD and colonoscopy this Wednesday. --> In addition, obtain serum protein electrophoresis and urine protein electrophoresis given elevated protein and decreased albumin. --> cea pending #. Protein albumin dissociation. Obtain serum and urine protein electrophoresis. ==> results are pending at the moment #. Thrombocytosis, likely secondary to reactive process. #. UTI --> started on ceftrixone --> urine culture results are pending #. Hyperglycemia, potentially related to diabetes. Consider Endocrinology evaluation. #. Lower spinal pain, has been seen by Dr. Ricci Severino with lumbar spondylosis, degenerative joint disease, and currently is on Tylenol and tramadol. I appreciate the consultation. Subjective Constitutional: Denies: no symptoms, chills, diaphoresis, fever, malaise, weakness, other Cardiovascular: Denies: no symptoms, chest pain, edema, irregular heart rate, lightheadedness, palpitations, syncope, other Respiratory: Denies: no symptoms, cough, orthopnea, shortness of breath, SOB with excertion, SOB at rest, sputum, stridor, wheezing, other Gastrointestinal/Abdominal: Denies: no symptoms, abdomen distended, abdominal pain, black stools, tarry stools, blood in stool, constipated, diarrhea, difficulty swallowing, nausea, poor appetite, poor fluid intake, rectal bleeding , vomiting, other Genitourinary: Denies: no symptoms, burning, discharge, frequency, flank pain, hematuria, incontinence, pain, urgency, other Neurologic/Psychiatric: Denies: no symptoms, anxiety, depressed, emotional problems, headache, numbness, paresthesia, pre-existing deficit, seizure, tingling, tremors, weakness, other Endocrine: Denies: no symptoms, excessive sweating, flushing, intolerance to cold, intolerance to heat, increased hunger, increased thirst, increased urine, unexplained weight gain, unexplained weight loss, other Hematologic/Lymphatic: Denies: no symptoms, anemia, easy bleeding, easy bruising, other Allergies: Coded Allergies: No Known Allergies (Unverified , 10/05/17) Subjective reviewed, no events to report, no f/c Objective Last 24 Hour Vital Signs Date Time Temp Pulse Resp B/P (MAP) Pulse Ox O2 Delivery O2 Flow Rate FiO2 10/08/17 08:00 98.4 72 20 109/62 (78) 95 98.4 10/08/17 04:00 75 10/08/17 04:00 98.0 67 20 112/52 (72) 97 98.0 10/08/17 00:00 66 10/07/17 23:37 99.0 71 20 123/69 (87) 94 99.0 10/07/17 21:00 Room Air 10/07/17 20:53 74 148/67 10/07/17 20:53 148/67 10/07/17 20:00 71 10/07/17 20:00 98.4 74 20 148/67 (94) 98 98.4 10/07/17 16:00 100.0 65 16 129/60 (83) 99 100.0 10/07/17 15:37 65 10/07/17 12:00 98.4 61 16 109/68 (82) 96 98.4 10/07/17 11:35 60 10/07/17 10:19 96.4 Intake and Output 10/07/17 10/08/17 19:00 07:00 Intake Total 1700 ml 60 ml Balance 1700 ml 60 ml Intake Oral 1700 ml IV Total 60 ml # Voids 6 3 # Bowel Movements 5 Laboratory Tests 10/07/17 09:52: Urine Color Pale yellow, Urine Appearance Cloudy, Urine pH 5, Urine Specific [place] 1.015, Urine Protein 3+H, Urine Glucose (UA) 4+H, Urine Ketones Negative , Urine Blood 4+H, Urine Nitrite PositiveH, Urine Bilirubin Negative, Urine Urobilinogen Normal, Urine Leukocyte Esterase 3+H, Urine RBC 5-10H, Urine WBC TntcH, Urine Squamous Epithelial Cells ModerateH, Urine Bacteria ModerateH, Urine Eosinophils None seen, Urine Random Sodium 23, Urine Potassium Timed 31, Urine Total Protein [Pending], Urine Albumin (%) [Pending], Urine Alpha-1- Globulins (%) [Pending], Urine Kxiyl-1-Jzobazuoq (%) [Pending], Urine Beta- Globulin (%) [Pending], Urine Gamma Globulin (%) [Pending], Ur Protein Electrophoresis M-Cal [Pending], Urine Protein Electrophoresis Intrp [Pending] 10/07/17 21:30: Stool Occult Blood [Pending] 10/08/17 07:00: White Blood Count 12.9H, Red Blood Count 4.50, Hemoglobin 11.0L, Hematocrit 32.5L, Mean Corpuscular Volume 72L, Mean Corpuscular Hemoglobin 24.4L, Mean Corpuscular Hemoglobin Concent 33.8, Red Cell Distribution Width 18.0H, Platelet Count 268, Mean Platelet Volume 7.5, Neutrophils (%) (Auto) 84.1H, Lymphocytes (%) (Auto) 7.5L, Monocytes (%) (Auto) 6.9, Eosinophils (%) (Auto) 0.8, Basophils (%) (Auto) 0.7, Prothrombin Time 10.9, Prothromb Time International Ratio 1.0, Activated Partial Thromboplast Time 34H, Sodium Level 129L, Potassium Level 4.2, Chloride Level 97L, Carbon Dioxide Level 24, Anion Gap 8, Blood Urea Nitrogen 36H, Creatinine 1.9H, Estimat Glomerular Filtration Rate , Glucose Level 201H, Calcium Level 9.7 Height (Feet): 5 Height (Inches): 4.00 Weight (Pounds): 187 General Appearance: alert EENT: normal ENT inspection Neck: supple Cardiovascular: regular rhythm Respiratory/Chest: normal breath sounds Abdomen: no organomegaly Extremities: normal inspection Edema: 1+ Leg (L), 1+ Leg (R) Edema: mild edema Neurologic: oriented x 3 Skin: warm/dry Florencio Moore MD Oct 08, 2017 09:31
--- NOTE | 2017-10-08 10:11 | Pre-Procedure Note/Attestation ---
Pre-Procedure Note/Attestation Complete Prior to Procedure Planned Procedure: not applicable Procedure Narrative: esophagogastroduodenoscopy and colonoscopy Indications for Procedure Pre-Operative Diagnosis: anemia Attestation I attest that I discussed the nature of the procedure; its benefits; risks and complications; and alternatives (and the risks and benefits of such alternatives ), prior to the procedure, with the patient (or the patient's legal entry level sales representative). I attest that, if there was a reasonable possibility of needing a blood transfusion, the patient (or the patient's legal entry level sales representative) was given the [facility] standardized written summary, pursuant to the Kevin Alexia Blood Safety Act ([place] Health and Safety Code # 1645, as amended). I attest that I re-evaluated the patient just prior to the surgery and that there has been no change in the patient's H&P, except as documented below: Imtiaz Marquez MD Oct 08, 2017 10:11
[2017-10-08] MEDS: cefTRIAXone 1gm/D5W 55ml IVPB SCH ×4 (11:00→11:32)
--- NOTE | 2017-10-08 11:47 | Pulmonology Progress Note ---
Assessment/Plan Problems: (1) Encephalopathy acute (2) Severe anemia (3) Renal insufficiency (4) Intractable back pain (5) Hyponatremia (6) History of hypertension Assessment/Plan scheduled for EGD today s/p transfusion 2 units prbc, hematology f/u pending endoscopy in am check h/h pt/ot neuro, psych evaluation albumin is 1.9 Subjective ROS Limited/Unobtainable: No Constitutional: Reports: no symptoms HEENT: Repors: no symptoms Respiratory: Reports: no symptoms Allergies: Coded Allergies: No Known Allergies (Unverified , 10/05/17) Objective Last 24 Hour Vital Signs Date Time Temp Pulse Resp B/P (MAP) Pulse Ox O2 Delivery O2 Flow Rate FiO2 10/08/17 09:00 Room Air 10/08/17 09:00 72 109/62 10/08/17 09:00 109/62 10/08/17 08:00 98.4 72 20 109/62 (78) 95 98.4 10/08/17 08:00 71 10/08/17 04:00 75 10/08/17 04:00 98.0 67 20 112/52 (72) 97 98.0 10/08/17 00:00 66 10/07/17 23:37 99.0 71 20 123/69 (87) 94 99.0 10/07/17 21:00 Room Air 10/07/17 20:53 74 148/67 10/07/17 20:53 148/67 10/07/17 20:00 71 10/07/17 20:00 98.4 74 20 148/67 (94) 98 98.4 10/07/17 16:00 100.0 65 16 129/60 (83) 99 100.0 10/07/17 15:37 65 10/07/17 12:00 98.4 61 16 109/68 (82) 96 98.4 Intake and Output 10/07/17 10/08/17 19:00 07:00 Intake Total 1700 ml 60 ml Balance 1700 ml 60 ml Intake Oral 1700 ml IV Total 60 ml # Voids 6 3 # Bowel Movements 5 General Appearance: WD/WN HEENT: normocephalic, atraumatic Respiratory/Chest: chest wall non-tender, lungs clear Cardiovascular: normal peripheral pulses Abdomen: normal bowel sounds, soft, non tender Genitourinary: normal external genitalia Extremities: no cyanosis 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 Microbiology Date/Time Source Procedure Growth Status 10/07/17 09:52 Urine,Clean Catch Urine Culture - Preliminary Gram Negative Bacillus 1 Resulted Laboratory Tests 10/07/17 21:30: Stool Occult Blood Negative 10/08/17 07:00: White Blood Count 12.9H, Red Blood Count 4.50, Hemoglobin 11.0L, Hematocrit 32.5L, Mean Corpuscular Volume 72L, Mean Corpuscular Hemoglobin 24.4L, Mean Corpuscular Hemoglobin Concent 33.8, Red Cell Distribution Width 18.0H, Platelet Count 268, Mean Platelet Volume 7.5, Neutrophils (%) (Auto) 84.1H, Lymphocytes (%) (Auto) 7.5L, Monocytes (%) (Auto) 6.9, Eosinophils (%) (Auto) 0.8, Basophils (%) (Auto) 0.7, Prothrombin Time 10.9, Prothromb Time International Ratio 1.0, Activated Partial Thromboplast Time 34H, Sodium Level 129L, Potassium Level 4.2, Chloride Level 97L, Carbon Dioxide Level 24, Anion Gap 8, Blood Urea Nitrogen 36H, Creatinine 1.9H, Estimat Glomerular Filtration Rate , Glucose Level 201H, Calcium Level 9.7 Current Medications Medications (Trade) Dose Ordered Sig/Lorie Route PRN Reason Start Time Stop Time Status Last Admin Dose Admin Acetaminophen (Tylenol) 650 mg Q4H PRN ORAL fever (temp>100.5F) 10/06/17 07:15 11/05/17 07:14 Acetaminophen (Tylenol) 650 mg Q4H PRN ORAL Mild Pain (Pain Scale 1-3) 10/08/17 08:30 10/08/17 16:30 Al Hydroxide/Mg Hydroxide (Mylanta II) 30 ml Q6H PRN ORAL dyspepsia 10/06/17 07:15 11/05/17 07:14 Ceftriaxone Sodium 1 gm/ Dextrose 55 ml @ 110 mls/hr Q24H IVPB 10/08/17 11:00 10/15/17 10:59 10/08/17 11:32 Dextrose (Dextrose 50%) 25 ml STAT PRN IV Hypoglycemia 10/06/17 07:15 11/05/17 07:14 Dextrose (Dextrose 50%) 50 ml STAT PRN IV Hypoglycemia 10/06/17 08:00 11/05/17 07:59 Diphenhydramine HCl (Benadryl) 25 mg Q15M PRN IVP Itching 10/08/17 08:30 10/08/17 16:30 Heparin Sodium (Porcine) (Heparin 5000 units/ml) 5,000 units EVERY 12 HOURS SUBQ 10/06/17 09:00 11/05/17 08:59 10/07/17 09:21 Insulin Aspart (NovoLOG) BEFORE MEALS AND HS SUBQ 10/06/17 13:02 11/05/17 13:01 10/08/17 06:15 Iron Sucrose 100 mg/Sodium Chloride 60 ml @ 240 mls/hr BEDTIME IV 10/07/17 21:00 10/11/17 21:14 10/07/17 20:53 Labetalol HCl (Normodyne) 5 mg Q10M PRN IV SBP>160 / DBP>90 10/08/17 08:30 10/08/17 16:30 Lorazepam (Ativan 2mg/ml 1ml) 0.5 mg Q4H PRN IV For Anxiety 10/06/17 07:15 10/13/17 07:14 Losartan Potassium (Cozaar) 50 mg EVERY 12 HOURS ORAL 10/06/17 21:00 11/05/17 20:59 10/07/17 20:53 Metoprolol Tartrate (Lopressor) 50 mg Q12HR ORAL 10/06/17 21:00 11/05/17 20:59 10/07/17 20:53 Ondansetron HCl (Zofran) 4 mg Q1H PRN IVP Nausea & Vomiting 10/08/17 08:30 10/08/17 16:30 Ondansetron HCl (Zofran) 4 mg Q6H PRN IVP Nausea & Vomiting 10/06/17 07:15 11/05/17 07:14 Polyethylene Glycol (Miralax) 17 gm HSPRN PRN ORAL Constipation 10/06/17 07:15 11/05/17 07:14 10/07/17 17:04 Sodium Phosphate (Fleet's Sodium Phosl Enema) 133 ml ONCE RECTAL 10/08/17 11:15 10/08/17 12:15 10/08/17 11:32 Tramadol HCl (Ultram) 50 mg Q4H PRN ORAL Severe Pain (Pain Scale 7-10) 10/06/17 09:00 10/13/17 08:59 10/07/17 09:20 Zolpidem Tartrate (Ambien) 5 mg HSPRN PRN ORAL Insomnia 10/06/17 07:15 10/13/17 07:14 Albert Guy MD Oct 08, 2017 11:47
[2017-10-08] MEDS ORDERED: Propofol 200mg/20ml IV ONE (13:30)
[2017-10-08] MEDS ORDERED: LR 1000ml ONE (13:30)
[2017-10-08] MEDS ORDERED: Lidocaine 1% MPF 10mg/ml 5ml ONE (13:30)
--- NOTE | 2017-10-08 14:12 | 48 Hour Post Anesthesia Eval ---
Post Anesthesia Evaluation Procedure: EGd and colonoscopy Date of Evaluation: Oct 08, 2017 Airway: patent Nausea: No Vomiting: No Pain Intensity: 0 Hydration Status: adequate Cardiopulmonary Status: at baseline Mental Status/LOC: patient returned to baseline Post-Anesthesia Complications: 0 Follow-up care needed: N/A - further care as per primary team Geno Ferguson MD Oct 08, 2017 14:12
--- NOTE | 2017-10-08 14:12 | Immediate Post-Op Evaluation ---
Immediate Post-Op Evalulation Immediate Post-Op Evalulation Procedure: EGd and colonoscopy Date of Evaluation: Oct 08, 2017 Time of Evaluation: 14:09 IV Fluids: 200 Blood Products: 0 Estimated Blood Loss: 0 Urinary Output: 0 Blood Pressure Systolic: 153 Blood Pressure Diastolic: 78 Pulse Rate: 76 Respiratory Rate: 16 O2 Sat by Pulse Oximetry: 98 Temperature (Fahrenheit): 97.8 Pain Score (1-10): 0 Nausea: No Vomiting: No Complications 0 Patient Status: awake, reacts, patent, none Hydration Status: adequate Drug: N/A Geno Ferguson MD Oct 08, 2017 14:12
--- NOTE | 2017-10-08 14:16 | Endoscopy Procedure Note ---
Endoscopy Procedure Note General Indication for Procedure: anemia Procedures Performed: EGD, colonoscopy - poor prep Operative Findings/Diagnosis: esophagitis, gastritis Specimen: yes Pt Tolerated Procedure Well: Yes Estimated Blood Loss: none Anesthesia Anesthesiologist: nguyen Anesthesia: MAC Inserted Devices Implant(s) used?: No Quality Quality of Bowel Preparation: Poor Did scope reach the cecum?: No Why scope didn't reach cecum: Bowel preparation poor Was there any complications?: No GI Core Measures 50 yrs or older w/o bx or poly: Not Applicable 10yrs. F/U not recommended: Not Applicable Imtiaz Marquez MD Oct 08, 2017 14:16
--- NOTE | 2017-10-08 15:43 | Internal Med Progress Note ---
Subjective Physician Name Michael Ramos Attending Physician Michael Ramos MD Current Medications Medications (Trade) Dose Ordered Sig/Lorie Route PRN Reason Start Time Stop Time Status Last Admin Dose Admin Acetaminophen (Tylenol) 650 mg Q4H PRN ORAL fever (temp>100.5F) 10/06/17 07:15 11/05/17 07:14 Acetaminophen (Tylenol) 650 mg Q4H PRN ORAL Mild Pain (Pain Scale 1-3) 10/08/17 08:30 10/08/17 16:30 Al Hydroxide/Mg Hydroxide (Mylanta II) 30 ml Q6H PRN ORAL dyspepsia 10/06/17 07:15 11/05/17 07:14 Ceftriaxone Sodium 1 gm/ Dextrose 55 ml @ 110 mls/hr Q24H IVPB 10/08/17 11:00 10/15/17 10:59 10/08/17 11:32 Dextrose (Dextrose 50%) 25 ml STAT PRN IV Hypoglycemia 10/06/17 07:15 11/05/17 07:14 Dextrose (Dextrose 50%) 50 ml STAT PRN IV Hypoglycemia 10/06/17 08:00 11/05/17 07:59 Diphenhydramine HCl (Benadryl) 25 mg Q15M PRN IVP Itching 10/08/17 08:30 10/08/17 16:30 Heparin Sodium (Porcine) (Heparin 5000 units/ml) 5,000 units EVERY 12 HOURS SUBQ 10/06/17 09:00 11/05/17 08:59 10/07/17 09:21 Insulin Aspart (NovoLOG) BEFORE MEALS AND HS SUBQ 10/06/17 13:02 11/05/17 13:01 10/08/17 12:15 Iron Sucrose 100 mg/Sodium Chloride 60 ml @ 240 mls/hr BEDTIME IV 10/07/17 21:00 10/11/17 21:14 10/07/17 20:53 Labetalol HCl (Normodyne) 5 mg Q10M PRN IV SBP>160 / DBP>90 10/08/17 08:30 10/08/17 16:30 Lorazepam (Ativan 2mg/ml 1ml) 0.5 mg Q4H PRN IV For Anxiety 10/06/17 07:15 10/13/17 07:14 Losartan Potassium (Cozaar) 50 mg EVERY 12 HOURS ORAL 10/06/17 21:00 11/05/17 20:59 10/07/17 20:53 Metoprolol Tartrate (Lopressor) 50 mg Q12HR ORAL 10/06/17 21:00 11/05/17 20:59 10/07/17 20:53 Ondansetron HCl (Zofran) 4 mg Q1H PRN IVP Nausea & Vomiting 10/08/17 08:30 10/08/17 16:30 Ondansetron HCl (Zofran) 4 mg Q6H PRN IVP Nausea & Vomiting 10/06/17 07:15 11/05/17 07:14 Pantoprazole (Protonix) 40 mg DAILY ORAL 10/09/17 09:00 11/08/17 08:59 Polyethylene Glycol (Miralax) 17 gm HSPRN PRN ORAL Constipation 10/06/17 07:15 11/05/17 07:14 10/07/17 17:04 Tramadol HCl (Ultram) 50 mg Q4H PRN ORAL Severe Pain (Pain Scale 7-10) 10/06/17 09:00 10/13/17 08:59 10/07/17 09:20 Zolpidem Tartrate (Ambien) 5 mg HSPRN PRN ORAL Insomnia 10/06/17 07:15 10/13/17 07:14 Allergies: Coded Allergies: No Known Allergies (Unverified , 10/05/17) Subjective awake, alert, responsive, NAD, Just back from endoscopy suite after colonoscopy. Na 129, Hgb: 11.0 Objective Last Vital Signs Date Time Temp Pulse Resp B/P (MAP) Pulse Ox O2 Delivery O2 Flow Rate FiO2 10/08/17 14:30 98.0 81 14 178/88 98 Room Air 98.0 10/08/17 14:15 3 Laboratory Tests Test 10/07/17 21:30 10/08/17 07:00 Stool Occult Blood Negative (NEGATIVE) White Blood Count 12.9 K/UL (4.8-10.8) H Red Blood Count 4.50 M/UL (4.20-5.40) Hemoglobin 11.0 G/DL (12.0-16.0) L Hematocrit 32.5 % (37.0-47.0) L Mean Corpuscular Volume 72 FL (80-99) L Mean Corpuscular Hemoglobin 24.4 PG (27.0-31.0) L Mean Corpuscular Hemoglobin Concent 33.8 G/DL (32.0-36.0) Red Cell Distribution Width 18.0 % (11.6-14.8) H Platelet Count 268 K/UL (150-450) Mean Platelet Volume 7.5 FL (6.5-10.1) Neutrophils (%) (Auto) 84.1 % (45.0-75.0) H Lymphocytes (%) (Auto) 7.5 % (20.0-45.0) L Monocytes (%) (Auto) 6.9 % (1.0-10.0) Eosinophils (%) (Auto) 0.8 % (0.0-3.0) Basophils (%) (Auto) 0.7 % (0.0-2.0) Prothrombin Time 10.9 SEC (9.30-11.50) Prothromb Time International Ratio 1.0 (0.9-1.1) Activated Partial Thromboplast Time 34 SEC (23-33) H Sodium Level 129 MMOL/L (136-145) L Potassium Level 4.2 MMOL/L (3.5-5.1) Chloride Level 97 MMOL/L (98-107) L Carbon Dioxide Level 24 MMOL/L (21-32) Anion Gap 8 mmol/L (5-15) Blood Urea Nitrogen 36 mg/dL (7-18) H Creatinine 1.9 MG/DL (0.55-1.30) H Estimat Glomerular Filtration Rate mL/min (>60) Glucose Level 201 MG/DL (74-106) H Calcium Level 9.7 MG/DL (8.5-10.1) Microbiology Date/Time Source Procedure Growth Status 10/07/17 09:52 Urine,Clean Catch Urine Culture - Preliminary Gram Negative Bacillus 1 Resulted Intake and Output 10/07/17 10/08/17 19:00 07:00 Intake Total 1700 ml 60 ml Balance 1700 ml 60 ml Intake Oral 1700 ml IV Total 60 ml # Voids 6 3 # Bowel Movements 5 Objective General: No acute distress, awake and alert HEENT: NCAT, sclera anicteric, PERRL, EOMI. Neck: Supple, no significant jugular venous distention, Lungs: Good inspiratory effort, clear to auscultation bilaterally, no Wheeze or Rales. Heart: Regular rate and rhythm, normal S1/S2, no murmur Abdomen: soft, nontender, nondistended. Normoactive bowel sounds, Obesity Extremities: No Cyanosis , clubbing or edema. Neuro: A&O x 3, Able to move all extremities Skin: warm, no rashes or lesions Psych: Normal mood and affect Assessment/Plan Assessment/Plan 1. Severe anemia. 2. Hyponatremia. 3. Low back pain. 4. Radiculopathy to the left leg. 5. Hypertension. 6. Diabetes type 2. 7. Hypercholesterolemia. 8. Obesity. 9. Acute GNB UTI. Plan: Monitor Labs Abx: Niels HECK Telemetry Michael Ramos MD Oct 08, 2017 15:43
--- NOTE | 2017-10-08 19:00 | Procedure Note ---
DATE OF PROCEDURE: 10/07/2017 SURGEON: Imtiaz Marquez M.D. PROCEDURE: Upper endoscopy with biopsy and colonoscopy. ANESTHESIA: Per Dr. Arreguin. INSTRUMENTS: Olympus adult flexible upper endoscope and colonoscope. INDICATION: Anemia. REASON FOR PROCEDURE: The procedure, risks, benefits, and possible consequences, including hemorrhage, aspiration, perforation and infection, and alternative treatments, were explained to the patient/legal guardian by Dr. Imtiaz Marquez and the patient/legal guardian understood and accepted these risks. DESCRIPTION OF PROCEDURE: After informed consent was obtained and the patient was adequately sedated, Olympus upper endoscope was advanced from the mouth into the second portion of duodenum and retroflexion was performed in the stomach. The patient had evidence of minimum esophagitis in the distal esophagus, small hiatal hernia. In the stomach, there was diffuse gastritis. Random biopsies from antrum and body was obtained to rule out H. pylori infection. The rest of the upper endoscopic examination grossly looked within normal limits. At this time, the upper endoscope was retrieved and the patient was turned over for colonoscopy. First, rectal exam was performed, which was positive for internal hemorrhoids. Then, the scope was advanced from the rectum into seems to be hepatic flexure area. The quality of prep was extremely poor. This examination was very limited given this quality of prep. No obvious mass, polyp, or source of bleeding was seen. SUMMARY OF FINDINGS: 1. Esophagitis. 2. Small hiatal hernia. 3. Gastritis. 4. Poor colonic prep and incomplete colonoscopy. 5. Internal hemorrhoids. RECOMMENDATIONS: 1. Follow up biopsy results and treat accordingly. 2. The patient needs outpatient repeat colonoscopy. Imtiaz Marquez M.D. DR: Gianna JOB#: [id number] CC:
[2017-10-08] MEDS ORDERED: Mylanta II UD 30ml ORAL PRN (20:44)
[2017-10-08] MEDS ORDERED: LORazepam Inj 2mg/ml 1ml IV PRN (20:45)
[2017-10-08] MEDS ORDERED: Miralax 17gm pkt ORAL PRN (20:45)
[2017-10-08] MEDS ORDERED: Zolpidem 5mg tab ORAL PRN (20:45)
[2017-10-08] MEDS: Iron Sucrose 100 MG in NS 55 ML IV SCH (21:00)
[2017-10-08] MEDS ORDERED: NovoLOG Insulin Flexpen SUBQ ONE (23:00)
[2017-10-09] VITALS (7 sets, daily range): BP systolic 127–142; BP diastolic 49–70
[2017-10-09 05:40] LABS: BASOPHILS % (AUTO) 0.8 % (0.0-2.0); EOSINOPHILS % (AUTO) 0.5 % (0.0-3.0); HEMATOCRIT 27.9 % (37.0-47.0); HEMOGLOBIN 9.2 G/DL (12.0-16.0); LYMPHOCYTES % (AUTO) 10.1 % (20.0-45.0); MEAN CORPUSCULAR VOLUME 72 FL (80-99); MONOCYTES % (AUTO) 9.2 % (1.0-10.0); NEUTROPHILS % (AUTO) 79.3 % (45.0-75.0); PLATELET COUNT 307 K/UL (150-450); RED BLOOD COUNT 3.89 M/UL (4.20-5.40); RED CELL DISTRIBUTION WIDTH 17.9 % (11.6-14.8); WHITE BLOOD COUNT 12.1 K/UL (4.8-10.8)
[2017-10-09 05:59] LABS: ALANINE AMINOTRANSFERASE 18 U/L (12-78); ALBUMIN 1.7 G/DL (3.4-5.0); ALBUMIN/GLOBULIN RATIO 0.4 (1.0-2.7); ALKALINE PHOSPHATASE 115 U/L (46-116); ANION GAP 7 mmol/L (5-15); ASPARTATE AMINO TRANSFERASE 18 U/L (15-37); BILIRUBIN,TOTAL 0.5 MG/DL (0.2-1.0); BLOOD UREA NITROGEN 36 mg/dL (7-18); CALCIUM 9.1 MG/DL (8.5-10.1); CARBON DIOXIDE 25 MMOL/L (21-32); CHLORIDE 101 MMOL/L (98-107); CREATININE 2.1 MG/DL (0.55-1.30); PHOSPHORUS 4.1 MG/DL (2.5-4.9); POTASSIUM 4.3 MMOL/L (3.5-5.1); SODIUM 133 MMOL/L (136-145)
[2017-10-09] MEDS: NovoLOG Insulin Flexpen SUBQ SCH ×4 (06:23→21:00)
--- NOTE | 2017-10-09 07:32 | Pulmonology Progress Note ---
Assessment/Plan Assessment/Plan ASSESSMENT severe iron deficiency anemia gastritis esophagitis diabetes mellitus out of control acute kidney injury versus chronic renal insufficiency proteinuria, possible diabetic nephropathy UTI with Klebsiella hypertension hyponatremia intractable back pain due to lumbar DDD lumbar herniated disc lumbar radiculopathy s/p recent fall PLAN OF CARE MS floor Echo with pEF 65-70%v and RVCP 19 carotid duplex essentially negative BP management with ARB and BB monitor renal parameters, electrolytes, correct electrolytes prn, replace Mg today avoid nephrotoxic renal US SPE and UPEP stable BS management with SSI prn hemoglobin A1c 9.7 add Levemir and titrate further anti-glycemic regimen as outpatient GI follows s/p EGD and colonoscopy 10/08 esophagitis, gastritis, small HH, internal hemorrhoids, incomplete colonoscopy due to poor prep stool for OB CEA WNL GI prophylaxis with PPi anemia consistent with BECKI, s/p 2 units PRBC, monitor HH with goal to keep Hgb above 7 hematology follows on venofer imaging revealed no acute pathology pain specialist follows pain management as per pain specialist recommendations MRI of L spine revealed degenerative LDD bowel regimen supportive care urine culture +Klebsiella , abx, PT/OT case discussed and evaluated by supervising physician Subjective Allergies: Coded Allergies: No Known Allergies (Unverified , 10/05/17) Subjective c/o back pain no chest pain, no SOB Objective Last 24 Hour Vital Signs Date Time Temp Pulse Resp B/P (MAP) Pulse Ox O2 Delivery O2 Flow Rate FiO2 10/09/17 04:27 97.7 74 18 133/51 (78) 99 97.7 10/09/17 00:10 98.1 80 19 129/61 (83) 99 98.1 10/08/17 22:18 Room Air 10/08/17 21:29 94 166/83 10/08/17 21:28 166/83 10/08/17 20:59 97.9 94 18 166/83 (110) 99 97.9 10/08/17 16:00 87 10/08/17 15:52 98.0 68 20 110/63 (79) 94 98.0 10/08/17 14:30 98.0 81 14 178/88 98 Room Air 98.0 10/08/17 14:15 82 16 178/92 98 Nasal Cannula 3 10/08/17 14:12 208.0 76 16 98 10/08/17 14:10 80 16 176/84 98 Nasal Cannula 3 10/08/17 14:06 97.8 76 16 153/78 98 Nasal Cannula 3 97.8 10/08/17 12:00 98.3 77 20 115/68 (84) 96 98.3 10/08/17 12:00 79 10/08/17 09:00 Room Air 10/08/17 09:00 72 109/62 10/08/17 09:00 109/62 10/08/17 08:00 98.4 72 20 109/62 (78) 95 98.4 10/08/17 08:00 71 Intake and Output 10/08/17 10/09/17 19:00 07:00 Intake Total 470 ml 240 ml Balance 470 ml 240 ml Intake Oral 220 ml 240 ml IV Total 250 ml # Voids 1 1 # Bowel Movements 3 General Appearance: no acute distress HEENT: normocephalic, atraumatic, anicteric, mucous membranes moist Respiratory/Chest: lungs clear, no respiratory distress, no accessory muscle use Cardiovascular: normal rate Abdomen: normal bowel sounds, soft, non tender Extremities: no edema, pedal pulses normal Neurologic/Psychiatric: alert, responsive Microbiology Date/Time Source Procedure Growth Status 10/07/17 09:52 Urine,Clean Catch Urine Culture - Final Klebsiella Pneumoniae Complete Laboratory Tests 10/09/17 05:05: White Blood Count 12.1H, Red Blood Count 3.89L, Hemoglobin 9.2L, Hematocrit 27.9L, Mean Corpuscular Volume 72L, Mean Corpuscular Hemoglobin 23.6L, Mean Corpuscular Hemoglobin Concent 32.8, Red Cell Distribution Width 17.9H, Platelet Count 307, Mean Platelet Volume 7.9, Neutrophils (%) (Auto) 79.3H, Lymphocytes (%) (Auto) 10.1L, Monocytes (%) (Auto) 9.2, Eosinophils (%) (Auto) 0.5, Basophils (%) (Auto) 0.8, Sodium Level 133L, Potassium Level 4.3, Chloride Level 101, Carbon Dioxide Level 25, Anion Gap 7, Blood Urea Nitrogen 36H, Creatinine 2.1H, Estimat Glomerular Filtration Rate , Glucose Level 130H, Calcium Level 9.1, Phosphorus Level 4.1, Magnesium Level 1.6L, Total Bilirubin 0.5, Aspartate Amino Transf (AST/SGOT) 18, Alanine Aminotransferase (ALT/SGPT) 18, Alkaline Phosphatase 115, Total Protein 6.4, Albumin 1.7L, Globulin 4.7, Albumin/Globulin Ratio 0.4L Current Medications Medications (Trade) Dose Ordered Sig/Lorie Route PRN Reason Start Time Stop Time Status Last Admin Dose Admin Acetaminophen (Tylenol) 650 mg Q4H PRN ORAL fever (temp>100.5F) 10/08/17 20:44 11/05/17 20:43 Al Hydroxide/Mg Hydroxide (Mylanta II) 30 ml Q6H PRN ORAL dyspepsia 10/08/17 20:44 11/07/17 20:43 Ceftriaxone Sodium 1 gm/ Dextrose 55 ml @ 110 mls/hr Q24H IVPB 10/09/17 11:00 10/15/17 10:59 Dextrose (Dextrose 50%) 25 ml STAT PRN IV Hypoglycemia 10/08/17 20:44 11/07/17 20:43 Dextrose (Dextrose 50%) 50 ml STAT PRN IV Hypoglycemia 10/09/17 08:00 11/05/17 07:59 Heparin Sodium (Porcine) (Heparin 5000 units/ml) 5,000 units EVERY 12 HOURS SUBQ 10/08/17 21:00 11/05/17 08:59 10/08/17 21:30 Insulin Aspart (NovoLOG) BEFORE MEALS AND HS SUBQ 10/08/17 21:00 11/05/17 13:01 10/09/17 06:23 Iron Sucrose 100 mg/Sodium Chloride 60 ml @ 240 mls/hr BEDTIME IV 10/08/17 21:00 10/11/17 21:14 Lorazepam (Ativan 2mg/ml 1ml) 0.5 mg Q4H PRN IV For Anxiety 10/08/17 20:45 10/13/17 20:44 Losartan Potassium (Cozaar) 50 mg EVERY 12 HOURS ORAL 10/08/17 21:00 11/05/17 20:59 10/08/17 21:28 Metoprolol Tartrate (Lopressor) 50 mg Q12HR ORAL 10/08/17 21:00 11/05/17 20:59 10/08/17 21:29 Ondansetron HCl (Zofran) 4 mg Q6H PRN IVP Nausea & Vomiting 10/08/17 20:45 11/07/17 20:44 Pantoprazole (Protonix) 40 mg DAILY ORAL 10/09/17 09:00 11/08/17 08:59 Polyethylene Glycol (Miralax) 17 gm HSPRN PRN ORAL Constipation 10/08/17 20:45 11/07/17 20:44 Tramadol HCl (Ultram) 50 mg Q4H PRN ORAL Severe Pain (Pain Scale 7-10) 10/08/17 20:45 10/13/17 20:44 Zolpidem Tartrate (Ambien) 5 mg HSPRN PRN ORAL Insomnia 10/08/17 20:45 10/15/17 20:44 Ria Hoang NP Oct 09, 2017 07:32
[2017-10-09] MEDS: Losartan 50mg tab ORAL SCH ×2 (08:49→22:03)
[2017-10-09] MEDS: Metoprolol Tartrate 50mg tab ORAL SCH ×2 (08:49→22:03)
[2017-10-09] MEDS: Heparin 5000 units/ml inj SUBQ SCH ×4 (08:50→22:04)
--- NOTE | 2017-10-09 10:31 | General Progress Note ---
Assessment/Plan Problem List: (1) Diabetes mellitus ICD Codes: E11.9 - Type 2 diabetes mellitus without complications SNOMED: 69115319 (2) Anemia ICD Codes: D64.9 - Anemia, unspecified SNOMED: 860140857 Qualifiers: Qualified Codes: D64.9 - Anemia, unspecified (3) Hypertension ICD Codes: I10 - Essential (primary) hypertension SNOMED: 70994206, [id number] Qualifiers: Qualified Codes: I10 - Essential (primary) hypertension (4) Spondylolisthesis at L4-L5 level ICD Codes: M43.16 - Spondylolisthesis, lumbar region SNOMED: 198154855 Assessment/Plan SUMMARY OF FINDINGS: 1. Esophagitis. 2. Small hiatal hernia. 3. Gastritis. 4. Poor colonic prep and incomplete colonoscopy. 5. Internal hemorrhoids. ppi fu H&H dc planning per primary team Subjective ROS Limited/Unobtainable: Yes Allergies: Coded Allergies: No Known Allergies (Unverified , 10/05/17) Objective Last 24 Hour Vital Signs Date Time Temp Pulse Resp B/P (MAP) Pulse Ox O2 Delivery O2 Flow Rate FiO2 10/09/17 09:25 Room Air 10/09/17 08:49 68 142/68 10/09/17 08:49 142/68 10/09/17 08:46 97.9 68 19 142/68 (92) 98 97.9 10/09/17 04:27 97.7 74 18 133/51 (78) 99 97.7 10/09/17 00:10 98.1 80 19 129/61 (83) 99 98.1 10/08/17 22:18 Room Air 10/08/17 21:29 94 166/83 10/08/17 21:28 166/83 10/08/17 20:59 97.9 94 18 166/83 (110) 99 97.9 10/08/17 16:00 87 10/08/17 15:52 98.0 68 20 110/63 (79) 94 98.0 10/08/17 14:30 98.0 81 14 178/88 98 Room Air 98.0 10/08/17 14:15 82 16 178/92 98 Nasal Cannula 3 10/08/17 14:12 208.0 76 16 98 10/08/17 14:10 80 16 176/84 98 Nasal Cannula 3 10/08/17 14:06 97.8 76 16 153/78 98 Nasal Cannula 3 97.8 10/08/17 12:00 98.3 77 20 115/68 (84) 96 98.3 10/08/17 12:00 79 Intake and Output 10/08/17 10/09/17 19:00 07:00 Intake Total 470 ml 240 ml Balance 470 ml 240 ml Intake Oral 220 ml 240 ml IV Total 250 ml # Voids 1 1 # Bowel Movements 3 Laboratory Tests 10/09/17 05:05: White Blood Count 12.1H, Red Blood Count 3.89L, Hemoglobin 9.2L, Hematocrit 27.9L, Mean Corpuscular Volume 72L, Mean Corpuscular Hemoglobin 23.6L, Mean Corpuscular Hemoglobin Concent 32.8, Red Cell Distribution Width 17.9H, Platelet Count 307, Mean Platelet Volume 7.9, Neutrophils (%) (Auto) 79.3H, Lymphocytes (%) (Auto) 10.1L, Monocytes (%) (Auto) 9.2, Eosinophils (%) (Auto) 0.5, Basophils (%) (Auto) 0.8, Sodium Level 133L, Potassium Level 4.3, Chloride Level 101, Carbon Dioxide Level 25, Anion Gap 7, Blood Urea Nitrogen 36H, Creatinine 2.1H, Estimat Glomerular Filtration Rate , Glucose Level 130H, Calcium Level 9.1, Phosphorus Level 4.1, Magnesium Level 1.6L, Total Bilirubin 0.5, Aspartate Amino Transf (AST/SGOT) 18, Alanine Aminotransferase (ALT/SGPT) 18, Alkaline Phosphatase 115, Total Protein 6.4, Albumin 1.7L, Globulin 4.7, Albumin/Globulin Ratio 0.4L Height (Feet): 5 Height (Inches): 4.00 Weight (Pounds): 187 General Appearance: no apparent distress EENT: normal ENT inspection Neck: supple Cardiovascular: normal rate Respiratory/Chest: decreased breath sounds Abdomen: normal bowel sounds, non tender, soft Extremities: non-tender Imtiaz Marquez MD Oct 09, 2017 10:31
[2017-10-09] MEDS ORDERED: Tubing IV Secondary IV ONE (10:45)
[2017-10-09] MEDS ORDERED: NS 275ml ONE (10:45)
[2017-10-09] MEDS ORDERED: cefTRIAXone 1 GM in D5W 55 ML IVPB SCH (11:00)
[2017-10-09] MEDS: traMADol 50mg tab ORAL PRN (11:36)
[2017-10-09] MEDS: Magnesium Oxide 400mg tab ORAL SCH ×2 (12:47→17:09)
[2017-10-09] MEDS: Levemir Flexpen SUBQ SCH (12:51)
[2017-10-09] MEDS: Cephalexin 500mg cap ORAL SCH (17:09)
--- NOTE | 2017-10-09 18:08 | General Progress Note ---
Assessment/Plan Status: stable Assessment/Plan ASSESSMENT AND RECOMMENDATIONS: #. Anemia due to iron deficiency. Medications have been reviewed. The patient currently is on iron, has been transfused, administered IV iron --> At this time, administered Venofer for total 5 days in addition to rule out GI bleed. --> The patient has been seen by GI Service, Dr. Marquez possible EGD and colonoscopy this Wednesday. --> In addition, obtain serum protein electrophoresis and urine protein electrophoresis given elevated protein and decreased albumin. --> cea pending --> Blood tx: 2 units 10/06, #. Protein albumin dissociation. Obtain serum and urine protein electrophoresis. ==> results are pending at the moment #. Thrombocytosis, likely secondary to reactive process. #. UTI --> started on ceftriaxone --> urine culture results: Klebsiella Pneumoniae #. Hyperglycemia, potentially related to diabetes. Consider Endocrinology evaluation. #. Lower spinal pain, has been seen by Dr. Ricci Severino with lumbar spondylosis, degenerative joint disease, and currently is on Tylenol and tramadol. I appreciate the consultation. Subjective Date patient seen: Oct 09, 2017 ROS Limited/Unobtainable: Yes Hematologic/Lymphatic: Reports: anemia Allergies: Coded Allergies: No Known Allergies (Unverified , 10/05/17) All Systems: reviewed and negative except above Subjective Pt awake and alert. No acute events. Pt refusing some care. DC planning. Objective Last 24 Hour Vital Signs Date Time Temp Pulse Resp B/P (MAP) Pulse Ox O2 Delivery O2 Flow Rate FiO2 10/09/17 16:00 97.8 66 19 135/49 (77) 100 97.8 10/09/17 12:35 97.9 10/09/17 12:00 98.1 77 19 127/65 (85) 97 98.1 10/09/17 11:36 97.9 10/09/17 09:25 Room Air 10/09/17 08:49 68 142/68 10/09/17 08:49 142/68 10/09/17 08:46 97.9 68 19 142/68 (92) 98 97.9 10/09/17 04:27 97.7 74 18 133/51 (78) 99 97.7 10/09/17 00:10 98.1 80 19 129/61 (83) 99 98.1 10/08/17 22:18 Room Air 10/08/17 21:29 94 166/83 10/08/17 21:28 166/83 10/08/17 20:59 97.9 94 18 83 (110) 99 97.9 Intake and Output 10/08/17 10/09/17 19:00 07:00 Intake Total 470 ml 240 ml Balance 470 ml 240 ml Intake Oral 220 ml 240 ml IV Total 250 ml # Voids 1 1 # Bowel Movements 3 Laboratory Tests 10/09/17 05:05: White Blood Count 12.1H, Red Blood Count 3.89L, Hemoglobin 9.2L, Hematocrit 27.9L, Mean Corpuscular Volume 72L, Mean Corpuscular Hemoglobin 23.6L, Mean Corpuscular Hemoglobin Concent 32.8, Red Cell Distribution Width 17.9H, Platelet Count 307, Mean Platelet Volume 7.9, Neutrophils (%) (Auto) 79.3H, Lymphocytes (%) (Auto) 10.1L, Monocytes (%) (Auto) 9.2, Eosinophils (%) (Auto) 0.5, Basophils (%) (Auto) 0.8, Sodium Level 133L, Potassium Level 4.3, Chloride Level 101, Carbon Dioxide Level 25, Anion Gap 7, Blood Urea Nitrogen 36H, Creatinine 2.1H, Estimat Glomerular Filtration Rate , Glucose Level 130H, Calcium Level 9.1, Phosphorus Level 4.1, Magnesium Level 1.6L, Total Bilirubin 0.5, Aspartate Amino Transf (AST/SGOT) 18, Alanine Aminotransferase (ALT/SGPT) 18, Alkaline Phosphatase 115, Total Protein 6.4, Albumin 1.7L, Globulin 4.7, Albumin/Globulin Ratio 0.4L Height (Feet): 5 Height (Inches): 4.00 Weight (Pounds): 187 General Appearance: no apparent distress EENT: PERRL/EOMI Neck: normal alignment Cardiovascular: normal peripheral pulses, irregularly irregular Respiratory/Chest: no respiratory distress Abdomen: soft Florencio Moore MD Oct 09, 2017 18:08
--- NOTE | 2017-10-09 19:02 | Internal Med Progress Note ---
Subjective Date of Service: Oct 09, 2017 Physician Name Kody Borja Attending Physician Michael Ramos MD Current Medications Medications (Trade) Dose Ordered Sig/Lorie Route PRN Reason Start Time Stop Time Status Last Admin Dose Admin Acetaminophen (Tylenol) 650 mg Q4H PRN ORAL fever (temp>100.5F) 10/08/17 20:44 11/05/17 20:43 Al Hydroxide/Mg Hydroxide (Mylanta II) 30 ml Q6H PRN ORAL dyspepsia 10/08/17 20:44 11/07/17 20:43 Cephalexin (Keflex) 500 mg BID ORAL 10/09/17 18:00 10/16/17 17:59 10/09/17 17:09 Dextrose (Dextrose 50%) 25 ml STAT PRN IV Hypoglycemia 10/08/17 20:44 11/07/17 20:43 Dextrose (Dextrose 50%) 50 ml STAT PRN IV Hypoglycemia 10/09/17 08:00 11/05/17 07:59 Heparin Sodium (Porcine) (Heparin 5000 units/ml) 5,000 units EVERY 12 HOURS SUBQ 10/08/17 21:00 11/05/17 08:59 10/08/17 21:30 Insulin Aspart (NovoLOG) BEFORE MEALS AND HS SUBQ 10/08/17 21:00 11/05/17 13:01 10/09/17 17:05 Insulin Detemir (Levemir) 8 units DAILY SUBQ 10/09/17 11:30 11/08/17 11:29 10/09/17 12:51 Iron Sucrose 100 mg/Sodium Chloride 60 ml @ 240 mls/hr BEDTIME IV 10/08/17 21:00 10/11/17 21:14 Lorazepam (Ativan 2mg/ml 1ml) 0.5 mg Q4H PRN IV For Anxiety 10/08/17 20:45 10/13/17 20:44 Losartan Potassium (Cozaar) 50 mg EVERY 12 HOURS ORAL 10/08/17 21:00 11/05/17 20:59 10/09/17 08:49 Magnesium Oxide (Mag-Ox 400mg) 400 mg THREE TIMES A DAY ORAL 10/09/17 13:00 10/11/17 09:01 10/09/17 17:09 Metoprolol Tartrate (Lopressor) 50 mg Q12HR ORAL 10/08/17 21:00 11/05/17 20:59 10/09/17 08:49 Ondansetron HCl (Zofran) 4 mg Q6H PRN IVP Nausea & Vomiting 10/08/17 20:45 11/07/17 20:44 Pantoprazole (Protonix) 40 mg DAILY ORAL 10/09/17 09:00 11/08/17 08:59 10/09/17 08:49 Polyethylene Glycol (Miralax) 17 gm HSPRN PRN ORAL Constipation 10/08/17 20:45 11/07/17 20:44 Tramadol HCl (Ultram) 50 mg Q4H PRN ORAL Severe Pain (Pain Scale 7-10) 10/08/17 20:45 10/13/17 20:44 10/09/17 11:36 Zolpidem Tartrate (Ambien) 5 mg HSPRN PRN ORAL Insomnia 10/08/17 20:45 10/15/17 20:44 Allergies: Coded Allergies: No Known Allergies (Unverified , 10/05/17) Subjective 82 YO F admitted with altered mental status. Now severe anemia. Cover for Int Med-Dr Ramos. S/P EGD/colonoscopy 10/08/17. Objective Last Vital Signs Date Time Temp Pulse Resp B/P (MAP) Pulse Ox O2 Delivery O2 Flow Rate FiO2 10/09/17 16:00 97.8 66 19 135/49 (77) 100 97.8 10/09/17 09:25 Room Air 10/08/17 14:15 3 Laboratory Tests Test 10/09/17 05:05 White Blood Count 12.1 K/UL (4.8-10.8) H Red Blood Count 3.89 M/UL (4.20-5.40) L Hemoglobin 9.2 G/DL (12.0-16.0) L Hematocrit 27.9 % (37.0-47.0) L Mean Corpuscular Volume 72 FL (80-99) L Mean Corpuscular Hemoglobin 23.6 PG (27.0-31.0) L Mean Corpuscular Hemoglobin Concent 32.8 G/DL (32.0-36.0) Red Cell Distribution Width 17.9 % (11.6-14.8) H Platelet Count 307 K/UL (150-450) Mean Platelet Volume 7.9 FL (6.5-10.1) Neutrophils (%) (Auto) 79.3 % (45.0-75.0) H Lymphocytes (%) (Auto) 10.1 % (20.0-45.0) L Monocytes (%) (Auto) 9.2 % (1.0-10.0) Eosinophils (%) (Auto) 0.5 % (0.0-3.0) Basophils (%) (Auto) 0.8 % (0.0-2.0) Sodium Level 133 MMOL/L (136-145) L Potassium Level 4.3 MMOL/L (3.5-5.1) Chloride Level 101 MMOL/L (98-107) Carbon Dioxide Level 25 MMOL/L (21-32) Anion Gap 7 mmol/L (5-15) Blood Urea Nitrogen 36 mg/dL (7-18) H Creatinine 2.1 MG/DL (0.55-1.30) H Estimat Glomerular Filtration Rate mL/min (>60) Glucose Level 130 MG/DL (74-106) H Calcium Level 9.1 MG/DL (8.5-10.1) Phosphorus Level 4.1 MG/DL (2.5-4.9) Magnesium Level 1.6 MG/DL (1.8-2.4) L Total Bilirubin 0.5 MG/DL (0.2-1.0) Aspartate Amino Transf (AST/SGOT) 18 U/L (15-37) Alanine Aminotransferase (ALT/SGPT) 18 U/L (12-78) Alkaline Phosphatase 115 U/L (46-116) Total Protein 6.4 G/DL (6.4-8.2) Albumin 1.7 G/DL (3.4-5.0) L Globulin 4.7 g/dL Albumin/Globulin Ratio 0.4 (1.0-2.7) L Microbiology Date/Time Source Procedure Growth Status 10/07/17 09:52 Urine,Clean Catch Urine Culture - Final Klebsiella Pneumoniae Complete Intake and Output 10/08/17 10/09/17 19:00 07:00 Intake Total 470 ml 240 ml Balance 470 ml 240 ml Intake Oral 220 ml 240 ml IV Total 250 ml # Voids 1 1 # Bowel Movements 3 Objective General Appearance: WD/WN, no apparent distress, alert EENT: PERRL/EOMI, normal ENT inspection Neck: non-tender, normal alignment, supple Cardiovascular: normal peripheral pulses, normal rate, regular rhythm, no gallop/murmur, no JVD Respiratory/Chest: chest wall non-tender, lungs clear, normal breath sounds, no respiratory distress, no accessory muscle use Abdomen: normal bowel sounds, non tender, soft, no organomegaly, no mass Extremities: normal range of motion, non-tender Neurologic: delivery consultant II-XII grossly normal, no motor/sensory deficits Skin: normal pigmentation, warm/dry Assessment/Plan Problem List: (1) Hypercholesteremia (2) Radiculopathy of leg Assessment & Plan: See pain management note. (3) Encephalopathy acute (4) Intractable back pain Assessment & Plan: See pain management note. (5) Diabetes mellitus Assessment & Plan: Continue novolog sliding scale. (6) Hypertension (7) Severe anemia Assessment & Plan: Await endoscopy and colonoscopy tomorrow 10/08/17. (8) Lumbar stenosis (9) Spondylolisthesis at L4-L5 level (10) Esophagitis (11) Gastritis (12) UTI (urinary tract infection) Assessment & Plan: Klebsiella. Continue keflex (13) Klebsiella infection Status: progressing Kody Borja MD Oct 09, 2017 19:02
[2017-10-09] MEDS: Iron Sucrose 100 MG in NS 55 ML IV SCH (21:00)
[2017-10-10 04:00] VITALS: BP 127/74
[2017-10-10] MEDS: NovoLOG Insulin Flexpen SUBQ SCH ×6 (06:06→21:06)
[2017-10-10 07:30] LABS: BASOPHILS % (AUTO) 0.9 % (0.0-2.0); EOSINOPHILS % (AUTO) 1.5 % (0.0-3.0); LYMPHOCYTES % (AUTO) 12.9 % (20.0-45.0); MEAN CORPUSCULAR VOLUME 73 FL (80-99); MONOCYTES % (AUTO) 6.7 % (1.0-10.0); NEUTROPHILS % (AUTO) 77.9 % (45.0-75.0); PLATELET COUNT 340 K/UL (150-450); RED BLOOD COUNT 4.26 M/UL (4.20-5.40); RED CELL DISTRIBUTION WIDTH 18.2 % (11.6-14.8); WHITE BLOOD COUNT 9.9 K/UL (4.8-10.8)
[2017-10-10 07:52] LABS: ANION GAP 8 mmol/L (5-15); BLOOD UREA NITROGEN 43 mg/dL (7-18); CALCIUM 9.4 MG/DL (8.5-10.1); CARBON DIOXIDE 25 MMOL/L (21-32); CHLORIDE 96 MMOL/L (98-107); CREATININE 2.4 MG/DL (0.55-1.30); SODIUM 128 MMOL/L (136-145)
[2017-10-10 08:00] VITALS: BP 131/59
--- NOTE | 2017-10-10 08:49 | General Progress Note ---
Assessment/Plan Problem List: (1) Diabetes mellitus ICD Codes: E11.9 - Type 2 diabetes mellitus without complications SNOMED: 21355671 (2) Anemia ICD Codes: D64.9 - Anemia, unspecified SNOMED: 820832156 Qualifiers: Qualified Codes: D64.9 - Anemia, unspecified (3) Hypertension ICD Codes: I10 - Essential (primary) hypertension SNOMED: 90528719, [id number] Qualifiers: Qualified Codes: I10 - Essential (primary) hypertension (4) Spondylolisthesis at L4-L5 level ICD Codes: M43.16 - Spondylolisthesis, lumbar region SNOMED: 350888948 Assessment/Plan SUMMARY OF FINDINGS: 1. Esophagitis. 2. Small hiatal hernia. 3. Gastritis. 4. Poor colonic prep and incomplete colonoscopy. 5. Internal hemorrhoids. ppi fu H&H dc planning per primary team Subjective ROS Limited/Unobtainable: Yes Allergies: Coded Allergies: No Known Allergies (Unverified , 10/05/17) Objective Last 24 Hour Vital Signs Date Time Temp Pulse Resp B/P (MAP) Pulse Ox O2 Delivery O2 Flow Rate FiO2 10/10/17 04:00 98.1 74 17 127/74 (91) 98 98.1 10/09/17 23:53 98.1 66 18 131/70 (90) 98 98.1 10/09/17 22:03 70 135/68 10/09/17 22:03 135/68 10/09/17 21:00 Room Air 10/09/17 20:34 98.3 70 17 135/68 (90) 99 98.3 10/09/17 16:00 97.8 66 19 135/49 (77) 100 97.8 10/09/17 12:35 97.9 10/09/17 12:00 98.1 77 19 127/65 (85) 97 98.1 10/09/17 11:36 97.9 10/09/17 09:25 Room Air Intake and Output 10/09/17 10/10/17 19:00 07:00 Intake Total 240 ml 360 ml Balance 240 ml 360 ml Intake Oral 240 ml 360 ml # Voids 2 2 # Bowel Movements 1 Laboratory Tests 10/10/17 06:15: White Blood Count 9.9, Red Blood Count 4.26, Hemoglobin 10.0L, Hematocrit 31.0L , Mean Corpuscular Volume 73L, Mean Corpuscular Hemoglobin 23.5L, Mean Corpuscular Hemoglobin Concent 32.3, Red Cell Distribution Width 18.2H, Platelet Count 340, Mean Platelet Volume 7.4, Neutrophils (%) (Auto) 77.9H, Lymphocytes (%) (Auto) 12.9L, Monocytes (%) (Auto) 6.7, Eosinophils (%) (Auto) 1.5, Basophils (%) (Auto) 0.9, Sodium Level 128L, Potassium Level 5.0, Chloride Level 96L, Carbon Dioxide Level 25, Anion Gap 8, Blood Urea Nitrogen 43H, Creatinine 2.4H, Estimat Glomerular Filtration Rate , Glucose Level 467#H, Calcium Level 9.4, Magnesium Level 1.8 Height (Feet): 5 Height (Inches): 4.00 Weight (Pounds): 187 General Appearance: no apparent distress EENT: normal ENT inspection Neck: supple Cardiovascular: normal rate Respiratory/Chest: decreased breath sounds Abdomen: normal bowel sounds, non tender, soft Extremities: non-tender Imtiaz Marquez MD Oct 10, 2017 08:49
[2017-10-10] MEDS: Magnesium Oxide 400mg tab ORAL SCH ×3 (08:58→18:29)
[2017-10-10] MEDS: Metoprolol Tartrate 50mg tab ORAL SCH ×2 (08:58→20:52)
[2017-10-10] MEDS: Losartan 50mg tab ORAL SCH ×2 (08:58→20:52)
[2017-10-10] MEDS: Cephalexin 500mg cap ORAL SCH ×2 (08:58→21:05)
[2017-10-10] MEDS: Heparin 5000 units/ml inj SUBQ SCH ×2 (09:00→20:53)
[2017-10-10] MEDS: Levemir Flexpen SUBQ SCH (09:53)
[2017-10-10] MEDS: traMADol 50mg tab ORAL PRN (10:46)
--- NOTE | 2017-10-10 11:03 | Pulmonology Progress Note ---
Assessment/Plan Assessment/Plan ASSESSMENT severe iron deficiency anemia gastritis esophagitis diabetes mellitus out of control acute kidney injury versus chronic renal insufficiency proteinuria, possible diabetic nephropathy UTI with Klebsiella hypertension hyponatremia intractable back pain due to lumbar DDD spondylolisthesis at L4-L5 level lumbar herniated disc lumbar radiculopathy s/p recent fall PLAN OF CARE MS floor Echo with pEF 65-70%v and RVCP 19 carotid duplex essentially negative BP management with ARB and BB monitor renal parameters, electrolytes, correct electrolytes prn, avoid nephrotoxic renal US SPEP and UPEP stable BS management with SSI prn BiE3s-8.7 BS high ; will increase Levemir and add short acting premeal insulin before meals GI follows s/p EGD and colonoscopy 10/08 esophagitis, gastritis, small HH, internal hemorrhoids, incomplete colonoscopy due to poor prep stool for OB negative CEA WNL GI prophylaxis with PPi anemia consistent with BECKI, s/p 2 units PRBC, monitor HH with goal to keep Hgb above 7 hematology follows on Venofer imaging noted pain specialist follows pain management as per pain specialist recommendations bowel regimen supportive care urine culture +Klebsiella , abx, PT/OT case discussed and evaluated by supervising physician Subjective Allergies: Coded Allergies: No Known Allergies (Unverified , 10/05/17) Subjective c/o back pain no chest pain, no SOB high BS in 400s Objective Last 24 Hour Vital Signs Date Time Temp Pulse Resp B/P (MAP) Pulse Ox O2 Delivery O2 Flow Rate FiO2 10/10/17 10:46 97.9 10/10/17 08:58 63 131/59 10/10/17 08:58 131/59 10/10/17 08:00 97.9 63 18 131/59 (83) 100 97.9 10/10/17 04:00 98.1 74 17 127/74 (91) 98 98.1 10/09/17 23:53 98.1 66 18 131/70 (90) 98 98.1 10/09/17 22:03 70 135/68 10/09/17 22:03 135/68 10/09/17 21:00 Room Air 10/09/17 20:34 98.3 70 17 135/68 (90) 99 98.3 10/09/17 16:00 97.8 66 19 135/49 (77) 100 97.8 10/09/17 12:35 97.9 10/09/17 12:00 98.1 77 19 127/65 (85) 97 98.1 10/09/17 11:36 97.9 Intake and Output 10/09/17 10/10/17 19:00 07:00 Intake Total 240 ml 360 ml Balance 240 ml 360 ml Intake Oral 240 ml 360 ml # Voids 2 2 # Bowel Movements 1 Objective General Appearance: no acute distress HEENT: normocephalic, atraumatic, anicteric, mucous membranes moist Respiratory/Chest: lungs clear, no respiratory distress, no accessory muscle use Cardiovascular: normal rate Abdomen: normal bowel sounds, soft, non tender Extremities: no edema, pedal pulses normal Neurologic/Psychiatric: alert, responsive Laboratory Tests 10/10/17 06:15: White Blood Count 9.9, Red Blood Count 4.26, Hemoglobin 10.0L, Hematocrit 31.0L , Mean Corpuscular Volume 73L, Mean Corpuscular Hemoglobin 23.5L, Mean Corpuscular Hemoglobin Concent 32.3, Red Cell Distribution Width 18.2H, Platelet Count 340, Mean Platelet Volume 7.4, Neutrophils (%) (Auto) 77.9H, Lymphocytes (%) (Auto) 12.9L, Monocytes (%) (Auto) 6.7, Eosinophils (%) (Auto) 1.5, Basophils (%) (Auto) 0.9, Sodium Level 128L, Potassium Level 5.0, Chloride Level 96L, Carbon Dioxide Level 25, Anion Gap 8, Blood Urea Nitrogen 43H, Creatinine 2.4H, Estimat Glomerular Filtration Rate , Glucose Level 467#H, Calcium Level 9.4, Magnesium Level 1.8 Current Medications Medications (Trade) Dose Ordered Sig/Lorie Route PRN Reason Start Time Stop Time Status Last Admin Dose Admin Acetaminophen (Tylenol) 650 mg Q4H PRN ORAL fever (temp>100.5F) 10/08/17 20:44 11/05/17 20:43 Al Hydroxide/Mg Hydroxide (Mylanta II) 30 ml Q6H PRN ORAL dyspepsia 10/08/17 20:44 11/07/17 20:43 Cephalexin (Keflex) 500 mg Q12HR ORAL 10/10/17 21:00 10/16/17 17:59 Dextrose (Dextrose 50%) 25 ml STAT PRN IV Hypoglycemia 10/08/17 20:44 11/07/17 20:43 Dextrose (Dextrose 50%) 50 ml STAT PRN IV Hypoglycemia 10/09/17 08:00 11/05/17 07:59 Heparin Sodium (Porcine) (Heparin 5000 units/ml) 5,000 units EVERY 12 HOURS SUBQ 10/08/17 21:00 11/05/17 08:59 10/08/17 21:30 Insulin Aspart (NovoLOG) BEFORE MEALS AND HS SUBQ 10/08/17 21:00 11/05/17 13:01 10/10/17 06:06 Insulin Detemir (Levemir) 8 units DAILY SUBQ 10/09/17 11:30 11/08/17 11:29 10/10/17 09:53 Iron Sucrose 100 mg/Sodium Chloride 60 ml @ 240 mls/hr BEDTIME IV 10/08/17 21:00 10/11/17 21:14 Lorazepam (Ativan 2mg/ml 1ml) 0.5 mg Q4H PRN IV For Anxiety 10/08/17 20:45 10/13/17 20:44 Losartan Potassium (Cozaar) 50 mg EVERY 12 HOURS ORAL 10/08/17 21:00 11/05/17 20:59 10/10/17 08:58 Magnesium Oxide (Mag-Ox 400mg) 400 mg THREE TIMES A DAY ORAL 10/09/17 13:00 10/11/17 09:01 10/10/17 08:58 Metoprolol Tartrate (Lopressor) 50 mg Q12HR ORAL 10/08/17 21:00 11/05/17 20:59 10/10/17 08:58 Ondansetron HCl (Zofran) 4 mg Q6H PRN IVP Nausea & Vomiting 10/08/17 20:45 11/07/17 20:44 Pantoprazole (Protonix) 40 mg DAILY ORAL 10/09/17 09:00 11/08/17 08:59 10/10/17 08:58 Polyethylene Glycol (Miralax) 17 gm HSPRN PRN ORAL Constipation 10/08/17 20:45 11/07/17 20:44 Tramadol HCl (Ultram) 50 mg Q4H PRN ORAL Severe Pain (Pain Scale 7-10) 10/08/17 20:45 10/13/17 20:44 10/10/17 10:46 Zolpidem Tartrate (Ambien) 5 mg HSPRN PRN ORAL Insomnia 10/08/17 20:45 10/15/17 20:44 Ria Hoang NP Oct 10, 2017 11:03
[2017-10-10 12:00] VITALS: BP 160/74
--- NOTE | 2017-10-10 14:22 | General Progress Note ---
Assessment/Plan Status: stable Assessment/Plan ASSESSMENT AND RECOMMENDATIONS: #. Anemia due to iron deficiency. Medications have been reviewed. The patient currently is on iron, has been transfused, administered IV iron --> At this time, administered Venofer for total 5 days in addition to rule out GI bleed. --> The patient has been seen by GI Service. --> In addition, obtain serum protein electrophoresis and urine protein electrophoresis given elevated protein and decreased albumin. --> CEA pending --> Blood tx: 2 units 10/06, --> Stool occult negative --> Current Hgb at 10.0, stable #. Protein albumin dissociation. Obtain serum and urine protein electrophoresis. ==> results are pending at the moment #. Thrombocytosis, likely secondary to reactive process. --> Has improved since admission --> Current PLT count at 340, wnl #. UTI. Resolved --> completed ceftriaxone --> urine culture results: Klebsiella Pneumoniae #. Hyperglycemia, potentially related to diabetes. Consider Endocrinology evaluation. #. Lower spinal pain, has been seen by Dr. Ricci Severino with lumbar spondylosis, degenerative joint disease, and currently is on Tylenol and tramadol. I appreciate the consultation. Subjective Date patient seen: Oct 10, 2017 ROS Limited/Unobtainable: Yes Allergies: Coded Allergies: No Known Allergies (Unverified , 10/05/17) All Systems: reviewed and negative except above Subjective Pt awake and alert. No acute events. H/H stable. DC planning. Objective Last 24 Hour Vital Signs Date Time Temp Pulse Resp B/P (MAP) Pulse Ox O2 Delivery O2 Flow Rate FiO2 10/10/17 12:00 98.0 70 19 160/74 (102) 99 98.0 10/10/17 11:45 97.9 10/10/17 10:46 97.9 10/10/17 09:00 Room Air 10/10/17 08:58 63 131/59 10/10/17 08:58 131/59 10/10/17 08:00 97.9 63 18 131/59 (83) 100 97.9 10/10/17 04:00 98.1 74 17 127/74 (91) 98 98.1 10/09/17 23:53 98.1 66 18 131/70 (90) 98 98.1 10/09/17 22:03 70 135/68 10/09/17 22:03 135/68 10/09/17 21:00 Room Air 10/09/17 20:34 98.3 70 17 135/68 (90) 99 98.3 10/09/17 16:00 97.8 66 19 135/49 (77) 100 97.8 Intake and Output 10/09/17 10/10/17 19:00 07:00 Intake Total 240 ml 360 ml Balance 240 ml 360 ml Intake Oral 240 ml 360 ml # Voids 2 2 # Bowel Movements 1 Laboratory Tests 10/10/17 06:15: White Blood Count 9.9, Red Blood Count 4.26, Hemoglobin 10.0L, Hematocrit 31.0L , Mean Corpuscular Volume 73L, Mean Corpuscular Hemoglobin 23.5L, Mean Corpuscular Hemoglobin Concent 32.3, Red Cell Distribution Width 18.2H, Platelet Count 340, Mean Platelet Volume 7.4, Neutrophils (%) (Auto) 77.9H, Lymphocytes (%) (Auto) 12.9L, Monocytes (%) (Auto) 6.7, Eosinophils (%) (Auto) 1.5, Basophils (%) (Auto) 0.9, Sodium Level 128L, Potassium Level 5.0, Chloride Level 96L, Carbon Dioxide Level 25, Anion Gap 8, Blood Urea Nitrogen 43H, Creatinine 2.4H, Estimat Glomerular Filtration Rate , Glucose Level 467#H, Calcium Level 9.4, Magnesium Level 1.8 Height (Feet): 5 Height (Inches): 4.00 Weight (Pounds): 187 General Appearance: no apparent distress EENT: PERRL/EOMI Neck: normal alignment Cardiovascular: normal peripheral pulses Respiratory/Chest: no respiratory distress Abdomen: soft Florencio Moore MD Oct 10, 2017 14:22
--- NOTE | 2017-10-10 15:56 | Internal Med Progress Note ---
Subjective Date of Service: Oct 10, 2017 Physician Name Kody Borja Attending Physician Michael Ramos MD Current Medications Medications (Trade) Dose Ordered Sig/Lorie Route PRN Reason Start Time Stop Time Status Last Admin Dose Admin Acetaminophen (Tylenol) 650 mg Q4H PRN ORAL fever (temp>100.5F) 10/08/17 20:44 11/05/17 20:43 Al Hydroxide/Mg Hydroxide (Mylanta II) 30 ml Q6H PRN ORAL dyspepsia 10/08/17 20:44 11/07/17 20:43 Cephalexin (Keflex) 500 mg Q12HR ORAL 10/10/17 21:00 10/16/17 17:59 Dextrose (Dextrose 50%) 25 ml STAT PRN IV Hypoglycemia 10/08/17 20:44 11/07/17 20:43 Dextrose (Dextrose 50%) 50 ml STAT PRN IV Hypoglycemia 10/09/17 08:00 11/05/17 07:59 Heparin Sodium (Porcine) (Heparin 5000 units/ml) 5,000 units EVERY 12 HOURS SUBQ 10/08/17 21:00 11/05/17 08:59 10/08/17 21:30 Insulin Aspart (NovoLOG) BEFORE MEALS AND HS SUBQ 10/08/17 21:00 11/05/17 13:01 10/10/17 12:24 Insulin Aspart (NovoLOG) 5 units NOVOTIAC SUBQ 10/10/17 11:50 11/09/17 11:49 10/10/17 12:24 Insulin Detemir (Levemir) 16 units DAILY SUBQ 10/11/17 09:00 11/08/17 11:29 Iron Sucrose 100 mg/Sodium Chloride 60 ml @ 240 mls/hr BEDTIME IV 10/08/17 21:00 10/11/17 21:14 Lorazepam (Ativan 2mg/ml 1ml) 0.5 mg Q4H PRN IV For Anxiety 10/08/17 20:45 10/13/17 20:44 Losartan Potassium (Cozaar) 50 mg EVERY 12 HOURS ORAL 10/08/17 21:00 11/05/17 20:59 10/10/17 08:58 Magnesium Oxide (Mag-Ox 400mg) 400 mg THREE TIMES A DAY ORAL 10/09/17 13:00 10/11/17 09:01 10/10/17 12:25 Metoprolol Tartrate (Lopressor) 50 mg Q12HR ORAL 10/08/17 21:00 11/05/17 20:59 10/10/17 08:58 Ondansetron HCl (Zofran) 4 mg Q6H PRN IVP Nausea & Vomiting 10/08/17 20:45 11/07/17 20:44 Pantoprazole (Protonix) 40 mg DAILY ORAL 10/09/17 09:00 11/08/17 08:59 10/10/17 08:58 Polyethylene Glycol (Miralax) 17 gm HSPRN PRN ORAL Constipation 10/08/17 20:45 11/07/17 20:44 Tramadol HCl (Ultram) 50 mg Q4H PRN ORAL Severe Pain (Pain Scale 7-10) 10/08/17 20:45 10/13/17 20:44 10/10/17 10:46 Zolpidem Tartrate (Ambien) 5 mg HSPRN PRN ORAL Insomnia 10/08/17 20:45 10/15/17 20:44 Allergies: Coded Allergies: No Known Allergies (Unverified , 10/05/17) ROS Limited/Unobtainable: No Constitutional: Reports: no symptoms HEENT: Reports: no symptoms Cardiovascular: Reports: no symptoms Respiratory: Reports: no symptoms Gastrointestinal/Abdominal: Reports: no symptoms Genitourinary: Reports: no symptoms Neurologic/Psychiatric: Reports: no symptoms Subjective 82 YO F admitted with altered mental status. Now severe anemia. Cover for Int [facility]-Dr Ramos. S/P EGD/colonoscopy 10/08/17. Objective Last Vital Signs Date Time Temp Pulse Resp B/P (MAP) Pulse Ox O2 Delivery O2 Flow Rate FiO2 10/10/17 12:00 98.0 70 19 160/74 (102) 99 98.0 10/10/17 09:00 Room Air 10/08/17 14:15 3 Laboratory Tests Test 10/10/17 06:15 White Blood Count 9.9 K/UL (4.8-10.8) Red Blood Count 4.26 M/UL (4.20-5.40) Hemoglobin 10.0 G/DL (12.0-16.0) L Hematocrit 31.0 % (37.0-47.0) L Mean Corpuscular Volume 73 FL (80-99) L Mean Corpuscular Hemoglobin 23.5 PG (27.0-31.0) L Mean Corpuscular Hemoglobin Concent 32.3 G/DL (32.0-36.0) Red Cell Distribution Width 18.2 % (11.6-14.8) H Platelet Count 340 K/UL (150-450) Mean Platelet Volume 7.4 FL (6.5-10.1) Neutrophils (%) (Auto) 77.9 % (45.0-75.0) H Lymphocytes (%) (Auto) 12.9 % (20.0-45.0) L Monocytes (%) (Auto) 6.7 % (1.0-10.0) Eosinophils (%) (Auto) 1.5 % (0.0-3.0) Basophils (%) (Auto) 0.9 % (0.0-2.0) Sodium Level 128 MMOL/L (136-145) L Potassium Level 5.0 MMOL/L (3.5-5.1) Chloride Level 96 MMOL/L (98-107) L Carbon Dioxide Level 25 MMOL/L (21-32) Anion Gap 8 mmol/L (5-15) Blood Urea Nitrogen 43 mg/dL (7-18) H Creatinine 2.4 MG/DL (0.55-1.30) H Estimat Glomerular Filtration Rate mL/min (>60) Glucose Level 467 MG/DL (74-106) #H Calcium Level 9.4 MG/DL (8.5-10.1) Magnesium Level 1.8 MG/DL (1.8-2.4) Intake and Output 10/09/17 10/10/17 19:00 07:00 Intake Total 240 ml 360 ml Balance 240 ml 360 ml Intake Oral 240 ml 360 ml # Voids 2 2 # Bowel Movements 1 Objective General Appearance: WD/WN, no apparent distress, alert EENT: PERRL/EOMI, normal ENT inspection Neck: non-tender, normal alignment, supple Cardiovascular: normal peripheral pulses, normal rate, regular rhythm, no gallop/murmur, no JVD Respiratory/Chest: chest wall non-tender, lungs clear, normal breath sounds, no respiratory distress, no accessory muscle use Abdomen: normal bowel sounds, non tender, soft, no organomegaly, no mass Extremities: normal range of motion, non-tender 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 (3) Encephalopathy acute (4) Intractable back pain Assessment & Plan: See pain management note. (5) Diabetes mellitus Assessment & Plan: Continue novolog sliding scale. (6) Hypertension (7) Severe anemia Assessment & Plan: Await endoscopy and colonoscopy tomorrow 10/08/17. (8) Lumbar stenosis (9) Spondylolisthesis at L4-L5 level (10) Esophagitis (11) Gastritis (12) UTI (urinary tract infection) Assessment & Plan: Klebsiella. Continue keflex (13) Klebsiella infection Status: stable Kody Borja MD Oct 10, 2017 15:56
[2017-10-10 16:00] VITALS: BP 155/60
--- NOTE | 2017-10-10 18:16 | General Progress Note ---
Assessment/Plan Assessment/Plan (1) Lumbar degenerative disc disease (2) Lumbar spondylosis (3) Lumbar herniated disc (4) Lumbar radiculopathy Patient to be continued on Tramadol D/w Dr. Severino and he concurred. Subjective Date patient seen: Oct 10, 2017 Time patient seen: 06:00 - pm Allergies: Coded Allergies: No Known Allergies (Unverified , 10/05/17) Subjective REVIEW OF SYSTEMS: Denies rash, fever, chills, sweating, dizziness, drowsiness, sore throat, or change in weight. No shortness of breath or chest pain. No nausea, vomiting, diarrhea, or blood in stool or urine. No bowel or bladder incontinence. No dysuria. She is complaining of low back pain. SUBJECTIVE: Patient shows no signs of pain or distress. Pain has been tolerated on the Tramadol as needed. She has no new complaints. Objective Last 24 Hour Vital Signs Date Time Temp Pulse Resp B/P (MAP) Pulse Ox O2 Delivery O2 Flow Rate FiO2 10/10/17 16:00 98.3 62 19 155/60 (91) 100 98.3 10/10/17 12:00 98.0 70 19 160/74 (102) 99 98.0 10/10/17 11:45 97.9 10/10/17 10:46 97.9 10/10/17 09:00 Room Air 10/10/17 08:58 63 131/59 10/10/17 08:58 131/59 10/10/17 08:00 97.9 63 18 131/59 (83) 100 97.9 10/10/17 04:00 98.1 74 17 127/74 (91) 98 98.1 10/09/17 23:53 98.1 66 18 131/70 (90) 98 98.1 10/09/17 22:03 70 135/68 10/09/17 22:03 135/68 10/09/17 21:00 Room Air 10/09/17 20:34 98.3 70 17 135/68 (90) 99 98.3 Intake and Output 10/09/17 10/10/17 19:00 07:00 Intake Total 240 ml 360 ml Balance 240 ml 360 ml Intake Oral 240 ml 360 ml # Voids 2 2 # Bowel Movements 1 Laboratory Tests 10/10/17 06:15: White Blood Count 9.9, Red Blood Count 4.26, Hemoglobin 10.0L, Hematocrit 31.0L , Mean Corpuscular Volume 73L, Mean Corpuscular Hemoglobin 23.5L, Mean Corpuscular Hemoglobin Concent 32.3, Red Cell Distribution Width 18.2H, Platelet Count 340, Mean Platelet Volume 7.4, Neutrophils (%) (Auto) 77.9H, Lymphocytes (%) (Auto) 12.9L, Monocytes (%) (Auto) 6.7, Eosinophils (%) (Auto) 1.5, Basophils (%) (Auto) 0.9, Sodium Level 128L, Potassium Level 5.0, Chloride Level 96L, Carbon Dioxide Level 25, Anion Gap 8, Blood Urea Nitrogen 43H, Creatinine 2.4H, Estimat Glomerular Filtration Rate , Glucose Level 467#H, Calcium Level 9.4, Magnesium Level 1.8 Height (Feet): 5 Height (Inches): 4.00 Weight (Pounds): 187 Objective GENERAL: Alert, awake, and oriented. HEENT: PERRLA. LUNGS: Decreased breath sounds bilaterally. HEART: S1 and S2, regular. ABDOMEN: Obese. EXTREMITIES: No cyanosis. No clubbing. NEURO: No changes. Thai Husain Oct 10, 2017 18:16
[2017-10-10] MEDS: Sodium Chloride 1gm Tab ORAL SCH (18:30)
[2017-10-10 20:01] VITALS: BP 112/56
[2017-10-10] MEDS: Iron Sucrose 100 MG in NS 55 ML IV SCH (20:52)
[2017-10-11 04:00] VITALS: BP 157/61
[2017-10-11] MEDS: traMADol 50mg tab ORAL PRN ×2 (05:48→11:41)
[2017-10-11] MEDS: NovoLOG Insulin Flexpen SUBQ SCH ×7 (05:51→21:14)
[2017-10-11 06:17] LABS: BASOPHILS % (AUTO) 1.1 % (0.0-2.0); EOSINOPHILS % (AUTO) 1.9 % (0.0-3.0); HEMATOCRIT 31.5 % (37.0-47.0); LYMPHOCYTES % (AUTO) 15.1 % (20.0-45.0); MEAN CORPUSCULAR VOLUME 73 FL (80-99); MONOCYTES % (AUTO) 8.3 % (1.0-10.0); NEUTROPHILS % (AUTO) 73.6 % (45.0-75.0); PLATELET COUNT 317 K/UL (150-450); RED CELL DISTRIBUTION WIDTH 18.4 % (11.6-14.8); WHITE BLOOD COUNT 8.2 K/UL (4.8-10.8)
[2017-10-11 07:27] LABS: ANION GAP 5 mmol/L (5-15); BLOOD UREA NITROGEN 38 mg/dL (7-18); CALCIUM 9.3 MG/DL (8.5-10.1); CARBON DIOXIDE 25 MMOL/L (21-32); CHLORIDE 101 MMOL/L (98-107); POTASSIUM 5.3 MMOL/L (3.5-5.1); SODIUM 131 MMOL/L (136-145)
[2017-10-11 08:00] VITALS: BP 166/75
--- NOTE | 2017-10-11 08:08 | General Progress Note ---
Assessment/Plan Problem List: (1) Diabetes mellitus ICD Codes: E11.9 - Type 2 diabetes mellitus without complications SNOMED: 95273122 (2) Anemia ICD Codes: D64.9 - Anemia, unspecified SNOMED: 175790493 Qualifiers: Qualified Codes: D64.9 - Anemia, unspecified (3) Hypertension ICD Codes: I10 - Essential (primary) hypertension SNOMED: 18635344, [id number] Qualifiers: Qualified Codes: I10 - Essential (primary) hypertension (4) Spondylolisthesis at L4-L5 level ICD Codes: M43.16 - Spondylolisthesis, lumbar region SNOMED: 505344034 Assessment/Plan SUMMARY OF FINDINGS: 1. Esophagitis. 2. Small hiatal hernia. 3. Gastritis. 4. Poor colonic prep and incomplete colonoscopy. 5. Internal hemorrhoids. ppi fu H&H dc planning per primary team Subjective ROS Limited/Unobtainable: Yes Allergies: Coded Allergies: No Known Allergies (Unverified , 10/05/17) Objective Last 24 Hour Vital Signs Date Time Temp Pulse Resp B/P (MAP) Pulse Ox O2 Delivery O2 Flow Rate FiO2 10/11/17 06:58 98.6 10/11/17 05:48 98.6 10/11/17 04:00 98.6 73 18 157/61 (93) 99 98.6 10/10/17 21:34 Room Air 10/10/17 20:52 70 112/56 10/10/17 20:52 112/56 10/10/17 20:01 97.5 70 18 112/56 (74) 99 97.5 10/10/17 16:00 98.3 62 19 155/60 (91) 100 98.3 10/10/17 12:00 98.0 70 19 160/74 (102) 99 98.0 10/10/17 10:46 97.9 10/10/17 09:00 Room Air 10/10/17 08:58 63 131/59 10/10/17 08:58 131/59 Intake and Output 10/10/17 10/11/17 19:00 07:00 Intake Total 360 ml 360 ml Balance 360 ml 360 ml Intake Oral 360 ml 360 ml # Voids 3 3 Laboratory Tests 10/11/17 05:30: White Blood Count 8.2, Red Blood Count 4.30, Hemoglobin 10.0L, Hematocrit 31.5L , Mean Corpuscular Volume 73L, Mean Corpuscular Hemoglobin 23.3L, Mean Corpuscular Hemoglobin Concent 31.9L, Red Cell Distribution Width 18.4H, Platelet Count 317, Mean Platelet Volume 7.2, Neutrophils (%) (Auto) 73.6, Lymphocytes (%) (Auto) 15.1L, Monocytes (%) (Auto) 8.3, Eosinophils (%) (Auto) 1.9, Basophils (%) (Auto) 1.1, Sodium Level 131L, Potassium Level 5.3H, Chloride Level 101, Carbon Dioxide Level 25, Anion Gap 5, Blood Urea Nitrogen 38H, Creatinine 2.0H, Estimat Glomerular Filtration Rate , Glucose Level 253#H, Calcium Level 9.3 Height (Feet): 5 Height (Inches): 4.00 Weight (Pounds): 187 General Appearance: alert EENT: normal ENT inspection Neck: supple Cardiovascular: normal rate Respiratory/Chest: decreased breath sounds Abdomen: normal bowel sounds, non tender, soft Extremities: non-tender Imtiaz Marquez MD Oct 11, 2017 08:08
[2017-10-11] MEDS ORDERED: Sodium Polystyrene Sulfonate 15gm Powder ORAL SCH (08:13)
--- NOTE | 2017-10-11 08:15 | Pulmonology Progress Note ---
Assessment/Plan Assessment/Plan ASSESSMENT severe iron deficiency anemia gastritis esophagitis diabetes mellitus out of control acute kidney injury versus chronic renal insufficiency proteinuria, possible diabetic nephropathy UTI with Klebsiella hypertension hyponatremia intractable back pain due to lumbar DDD spondylolisthesis at L4-L5 level lumbar herniated disc lumbar radiculopathy s/p recent fall PLAN OF CARE [facility] floor Echo with pEF 65-70%v and RVCP 19 carotid duplex essentially negative BP management with ARB and BB monitor renal parameters, electrolytes, correct electrolytes prn, high K today, Kayexalate x 1 ( likely due to Cozaar), will observe, may need to stop Cozaar avoid nephrotoxic renal US SPEP and UPEP stable BS management with SSI prn [id number] ( at home only BS better with long and short acting insulin, will increase Levemir dose ( at home only on long acting insulin, self injecting for years) GI follows s/p EGD and colonoscopy 10/08 esophagitis, gastritis, small HH, internal hemorrhoids, incomplete colonoscopy due to poor prep stool for OB negative CEA WNL GI prophylaxis with PPi anemia consistent with BECKI, s/p 2 units PRBC, monitor HH with goal to keep Hgb above 7 hematology follows on Venofer imaging noted pain specialist follows pain management as per pain specialist recommendations bowel regimen supportive care urine culture +Klebsiella , abx, PT/OT case discussed and evaluated by supervising physician Subjective Allergies: Coded Allergies: No Known Allergies (Unverified , 10/05/17) Subjective c/o back pain no chest pain, no SOB BS better still in 200s K-5.3 Objective Last 24 Hour Vital Signs Date Time Temp Pulse Resp B/P (MAP) Pulse Ox O2 Delivery O2 Flow Rate FiO2 10/11/17 06:58 98.6 10/11/17 05:48 98.6 10/11/17 04:00 98.6 73 18 157/61 (93) 99 98.6 10/10/17 21:34 Room Air 10/10/17 20:52 70 112/56 10/10/17 20:52 112/56 10/10/17 20:01 97.5 70 18 112/56 (74) 99 97.5 10/10/17 16:00 98.3 62 19 155/60 (91) 100 98.3 10/10/17 12:00 98.0 70 19 160/74 (102) 99 98.0 10/10/17 10:46 97.9 10/10/17 09:00 Room Air 10/10/17 08:58 63 131/59 10/10/17 08:58 131/59 Intake and Output 10/10/17 10/11/17 19:00 07:00 Intake Total 360 ml 360 ml Balance 360 ml 360 ml Intake Oral 360 ml 360 ml # Voids 3 3 Objective General Appearance: no acute distress HEENT: normocephalic, atraumatic, anicteric, mucous membranes moist Respiratory/Chest: lungs clear, no respiratory distress, no accessory muscle use Cardiovascular: normal rate Abdomen: normal bowel sounds, soft, non tender Extremities: no edema, pedal pulses normal Neurologic/Psychiatric: alert, responsive Laboratory Tests 10/11/17 05:30: White Blood Count 8.2, Red Blood Count 4.30, Hemoglobin 10.0L, Hematocrit 31.5L , Mean Corpuscular Volume 73L, Mean Corpuscular Hemoglobin 23.3L, Mean Corpuscular Hemoglobin Concent 31.9L, Red Cell Distribution Width 18.4H, Platelet Count 317, Mean Platelet Volume 7.2, Neutrophils (%) (Auto) 73.6, Lymphocytes (%) (Auto) 15.1L, Monocytes (%) (Auto) 8.3, Eosinophils (%) (Auto) 1.9, Basophils (%) (Auto) 1.1, Sodium Level 131L, Potassium Level 5.3H, Chloride Level 101, Carbon Dioxide Level 25, Anion Gap 5, Blood Urea Nitrogen 38H, Creatinine 2.0H, Estimat Glomerular Filtration Rate , Glucose Level 253#H, Calcium Level 9.3 Current Medications Medications (Trade) Dose Ordered Sig/Lorie Route PRN Reason Start Time Stop Time Status Last Admin Dose Admin Acetaminophen (Tylenol) 650 mg Q4H PRN ORAL fever (temp>100.5F) 10/08/17 20:44 11/05/17 20:43 Al Hydroxide/Mg Hydroxide (Mylanta II) 30 ml Q6H PRN ORAL dyspepsia 10/08/17 20:44 11/07/17 20:43 Cephalexin (Keflex) 500 mg Q12HR ORAL 10/10/17 21:00 10/16/17 17:59 10/10/17 21:05 Dextrose (Dextrose 50%) 25 ml STAT PRN IV Hypoglycemia 10/08/17 20:44 11/07/17 20:43 Dextrose (Dextrose 50%) 50 ml STAT PRN IV Hypoglycemia 10/09/17 08:00 11/05/17 07:59 Heparin Sodium (Porcine) (Heparin 5000 units/ml) 5,000 units EVERY 12 HOURS SUBQ 10/08/17 21:00 11/05/17 08:59 10/08/17 21:30 Insulin Aspart (NovoLOG) BEFORE MEALS AND HS SUBQ 10/08/17 21:00 11/05/17 13:01 10/11/17 05:51 Insulin Aspart (NovoLOG) 5 units NOVOTIAC SUBQ 10/10/17 11:50 11/09/17 11:49 10/11/17 05:51 Insulin Detemir (Levemir) 16 units DAILY SUBQ 10/11/17 09:00 11/08/17 11:29 Iron Sucrose 100 mg/Sodium Chloride 60 ml @ 240 mls/hr BEDTIME IV 10/08/17 21:00 10/11/17 21:14 Lorazepam (Ativan 2mg/ml 1ml) 0.5 mg Q4H PRN IV For Anxiety 10/08/17 20:45 10/13/17 20:44 Losartan Potassium (Cozaar) 50 mg EVERY 12 HOURS ORAL 10/08/17 21:00 11/05/17 20:59 10/10/17 08:58 Magnesium Oxide (Mag-Ox 400mg) 400 mg THREE TIMES A DAY ORAL 10/09/17 13:00 10/11/17 09:01 10/10/17 18:29 Metoprolol Tartrate (Lopressor) 50 mg Q12HR ORAL 10/08/17 21:00 11/05/17 20:59 10/10/17 08:58 Ondansetron HCl (Zofran) 4 mg Q6H PRN IVP Nausea & Vomiting 10/08/17 20:45 11/07/17 20:44 Pantoprazole (Protonix) 40 mg DAILY ORAL 10/09/17 09:00 11/08/17 08:59 10/10/17 08:58 Polyethylene Glycol (Miralax) 17 gm HSPRN PRN ORAL Constipation 10/08/17 20:45 11/07/17 20:44 Sodium Chloride (NaCl) 1 gm THREE TIMES A DAY ORAL 10/10/17 18:00 11/09/17 17:59 10/10/17 18:30 Tramadol HCl (Ultram) 50 mg Q4H PRN ORAL Severe Pain (Pain Scale 7-10) 10/08/17 20:45 10/13/17 20:44 10/11/17 05:48 Zolpidem Tartrate (Ambien) 5 mg HSPRN PRN ORAL Insomnia 10/08/17 20:45 10/15/17 20:44 Ria Hoang NP Oct 11, 2017 08:15
[2017-10-11] MEDS ORDERED: Sodium Polystyrene Sulfonate 15gm Powder ORAL ONE (08:30)
[2017-10-11] MEDS: Cephalexin 500mg cap ORAL SCH (08:55)
[2017-10-11] MEDS: Losartan 50mg tab ORAL SCH ×2 (08:55→21:11)
[2017-10-11] MEDS: Metoprolol Tartrate 50mg tab ORAL SCH ×2 (08:55→21:11)
[2017-10-11] MEDS: Magnesium Oxide 400mg tab ORAL SCH (08:55)
[2017-10-11] MEDS: Sodium Chloride 1gm Tab ORAL SCH ×3 (08:55→17:00)
[2017-10-11] MEDS: Levemir Flexpen SUBQ SCH (08:57)
[2017-10-11] MEDS ORDERED: Levemir Flexpen SUBQ SCH (09:00)
[2017-10-11] MEDS: Heparin 5000 units/ml inj SUBQ SCH ×2 (09:00→21:15)
--- NOTE | 2017-10-11 10:16 | General Progress Note ---
Assessment/Plan Assessment/Plan (1) Lumbar degenerative disc disease (2) Lumbar spondylosis (3) Lumbar herniated disc (4) Lumbar radiculopathy Patient to be continued on Tramadol D/w Dr. Severino and he concurred. Subjective Date patient seen: Oct 11, 2017 Time patient seen: 09:00 - am Allergies: Coded Allergies: No Known Allergies (Unverified , 10/05/17) Subjective REVIEW OF SYSTEMS: Denies rash, fever, chills, sweating, dizziness, drowsiness, sore throat, or change in weight. No shortness of breath or chest pain. No nausea, vomiting, diarrhea, or blood in stool or urine. No bowel or bladder incontinence. No dysuria. She is complaining of low back pain. SUBJECTIVE: Patient is in bed showing no signs of pain or distress. Pain is tolerated on the Tramadol. She has no new complaints. Objective Last 24 Hour Vital Signs Date Time Temp Pulse Resp B/P (MAP) Pulse Ox O2 Delivery O2 Flow Rate FiO2 10/11/17 08:55 71 166/75 10/11/17 08:55 166/75 10/11/17 08:00 98.4 71 20 166/75 (105) 98 98.4 10/11/17 06:58 98.6 10/11/17 05:48 98.6 10/11/17 04:00 98.6 73 18 157/61 (93) 99 98.6 10/10/17 21:34 Room Air 10/10/17 20:52 70 112/56 10/10/17 20:52 112/56 10/10/17 20:01 97.5 70 18 112/56 (74) 99 97.5 10/10/17 16:00 98.3 62 19 155/60 (91) 100 98.3 10/10/17 12:00 98.0 70 19 160/74 (102) 99 98.0 10/10/17 10:46 97.9 Intake and Output 10/10/17 10/11/17 19:00 07:00 Intake Total 360 ml 360 ml Balance 360 ml 360 ml Intake Oral 360 ml 360 ml # Voids 3 3 Laboratory Tests 10/11/17 05:30: White Blood Count 8.2, Red Blood Count 4.30, Hemoglobin 10.0L, Hematocrit 31.5L , Mean Corpuscular Volume 73L, Mean Corpuscular Hemoglobin 23.3L, Mean Corpuscular Hemoglobin Concent 31.9L, Red Cell Distribution Width 18.4H, Platelet Count 317, Mean Platelet Volume 7.2, Neutrophils (%) (Auto) 73.6, Lymphocytes (%) (Auto) 15.1L, Monocytes (%) (Auto) 8.3, Eosinophils (%) (Auto) 1.9, Basophils (%) (Auto) 1.1, Sodium Level 131L, Potassium Level 5.3H, Chloride Level 101, Carbon Dioxide Level 25, Anion Gap 5, Blood Urea Nitrogen 38H, Creatinine 2.0H, Estimat Glomerular Filtration Rate , Glucose Level 253#H, Calcium Level 9.3 Height (Feet): 5 Height (Inches): 4.00 Weight (Pounds): 187 Objective GENERAL: Alert, awake, and oriented. HEENT: PERRLA. LUNGS: Decreased breath sounds bilaterally. HEART: S1 and S2, regular. ABDOMEN: Obese. EXTREMITIES: No cyanosis. No clubbing. NEURO: No changes. hTai Husain Oct 11, 2017 10:16
--- NOTE | 2017-10-11 10:32 | General Progress Note ---
Assessment/Plan Assessment/Plan ASSESSMENT AND RECOMMENDATIONS: #. Anemia due to iron deficiency. Medications have been reviewed. The patient currently is on iron, has been transfused, administered IV iron --> At this time, administered Venofer for total 5 days in addition to rule out GI bleed. --> The patient has been seen by GI Service. Appreciate their recs --> upep and spep are negative --> CEA is only 3.9 --> Blood tx: 2 units 10/06, --> Stool occult negative --> Current Hgb at 10.0, stable #. Protein albumin dissociation. upep and spep is negative ==> results consistent with inflammatory process #. Thrombocytosis, likely secondary to reactive process. --> Has improved since admission --> Current PLT count at 340, wnl #. UTI. Resolved --> completed ceftriaxone --> urine culture results: Klebsiella Pneumoniae #. Hyperglycemia, potentially related to diabetes. Consider Endocrinology evaluation. #. Lower spinal pain, has been seen by Dr. Ricci Severino with lumbar spondylosis, degenerative joint disease --> currently is on Tylenol and tramadol. I appreciate the consultation. Subjective Constitutional: Denies: no symptoms, chills, diaphoresis, fever, malaise, weakness, other HEENT: Denies: no symptoms, eye pain, blurred vision, tearing, double vision, ear pain, ear discharge, nose pain, nose congestion, throat pain, throat swelling, mouth pain, mouth swelling, other Cardiovascular: Denies: no symptoms, chest pain, edema, irregular heart rate, lightheadedness, palpitations, syncope, other Respiratory: Denies: no symptoms, cough, orthopnea, shortness of breath, SOB with excertion, SOB at rest, sputum, stridor, wheezing, other Gastrointestinal/Abdominal: Denies: no symptoms, abdomen distended, abdominal pain, black stools, tarry stools, blood in stool, constipated, diarrhea, difficulty swallowing, nausea, poor appetite, poor fluid intake, rectal bleeding , vomiting, other Genitourinary: Denies: no symptoms, burning, discharge, frequency, flank pain, hematuria, incontinence, pain, urgency, other Neurologic/Psychiatric: Denies: no symptoms, anxiety, depressed, emotional problems, headache, numbness, paresthesia, pre-existing deficit, seizure, tingling, tremors, weakness, other Endocrine: Denies: no symptoms, excessive sweating, flushing, intolerance to cold, intolerance to heat, increased hunger, increased thirst, increased urine, unexplained weight gain, unexplained weight loss, other Hematologic/Lymphatic: Denies: no symptoms, anemia, easy bleeding, easy bruising, other Allergies: Coded Allergies: No Known Allergies (Unverified , 10/05/17) Subjective Pt awake and alert. No acute events. H/H stable. DC planning in progress Objective Last 24 Hour Vital Signs Date Time Temp Pulse Resp B/P (MAP) Pulse Ox O2 Delivery O2 Flow Rate FiO2 10/11/17 08:55 71 166/75 10/11/17 08:55 166/75 10/11/17 08:00 98.4 71 20 166/75 (105) 98 98.4 10/11/17 06:58 98.6 10/11/17 05:48 98.6 10/11/17 04:00 98.6 73 18 157/61 (93) 99 98.6 10/10/17 21:34 Room Air 10/10/17 20:52 70 112/56 10/10/17 20:52 112/56 10/10/17 20:01 97.5 70 18 112/56 (74) 99 97.5 10/10/17 16:00 98.3 62 19 155/60 (91) 100 98.3 10/10/17 12:00 98.0 70 19 160/74 (102) 99 98.0 10/10/17 10:46 97.9 Intake and Output 10/10/17 10/11/17 19:00 07:00 Intake Total 360 ml 360 ml Balance 360 ml 360 ml Intake Oral 360 ml 360 ml # Voids 3 3 Laboratory Tests 10/11/17 05:30: White Blood Count 8.2, Red Blood Count 4.30, Hemoglobin 10.0L, Hematocrit 31.5L , Mean Corpuscular Volume 73L, Mean Corpuscular Hemoglobin 23.3L, Mean Corpuscular Hemoglobin Concent 31.9L, Red Cell Distribution Width 18.4H, Platelet Count 317, Mean Platelet Volume 7.2, Neutrophils (%) (Auto) 73.6, Lymphocytes (%) (Auto) 15.1L, Monocytes (%) (Auto) 8.3, Eosinophils (%) (Auto) 1.9, Basophils (%) (Auto) 1.1, Sodium Level 131L, Potassium Level 5.3H, Chloride Level 101, Carbon Dioxide Level 25, Anion Gap 5, Blood Urea Nitrogen 38H, Creatinine 2.0H, Estimat Glomerular Filtration Rate , Glucose Level 253#H, Calcium Level 9.3 Height (Feet): 5 Height (Inches): 4.00 Weight (Pounds): 187 General Appearance: alert EENT: TMs normal Neck: normal alignment Cardiovascular: regular rhythm Respiratory/Chest: lungs clear Abdomen: soft Extremities: non-tender Edema: 1+ Leg (L), 1+ Leg (R) Edema: mild edema Neurologic: alert Skin: warm/dry Florencio Moore MD Oct 11, 2017 10:32
[2017-10-11 12:00] VITALS: BP 146/67
[2017-10-11 16:00] VITALS: BP 148/57
[2017-10-11 20:00] VITALS: BP 165/76
[2017-10-11] MEDS: Iron Sucrose 100 MG in NS 55 ML IV SCH (20:06)
[2017-10-11] MEDS: Cephalexin 250mg Cap ORAL SCH (21:11)
[2017-10-12] VITALS: BP 143/76
[2017-10-12 04:00] VITALS: BP 156/56
[2017-10-12 06:17] LABS: BASOPHILS % (AUTO) 0.6 % (0.0-2.0); EOSINOPHILS % (AUTO) 2.9 % (0.0-3.0); HEMATOCRIT 27.5 % (37.0-47.0); HEMOGLOBIN 8.5 G/DL (12.0-16.0); MEAN CORPUSCULAR VOLUME 74 FL (80-99); MONOCYTES % (AUTO) 10.5 % (1.0-10.0); PLATELET COUNT 324 K/UL (150-450); RED BLOOD COUNT 3.72 M/UL (4.20-5.40); WHITE BLOOD COUNT 7.9 K/UL (4.8-10.8)
[2017-10-12 06:29] LABS: ANION GAP 4 mmol/L (5-15); BLOOD UREA NITROGEN 36 mg/dL (7-18); CARBON DIOXIDE 28 MMOL/L (21-32); CHLORIDE 102 MMOL/L (98-107); CREATININE 2.1 MG/DL (0.55-1.30); POTASSIUM 5.5 MMOL/L (3.5-5.1); SODIUM 134 MMOL/L (136-145)
[2017-10-12] MEDS: NovoLOG Insulin Flexpen SUBQ SCH ×6 (06:42→17:54)
--- NOTE | 2017-10-12 06:42 | General Progress Note ---
Assessment/Plan Assessment/Plan ASSESSMENT AND RECOMMENDATIONS: #. Anemia due to iron deficiency. Medications have been reviewed. The patient currently is on iron, has been transfused, administered IV iron --> At this time, administered Venofer for total 5 days in addition to rule out GI bleed. --> The patient has been seen by GI Service. Appreciate their recs --> upep and spep are negative --> CEA is only 3.9 --> Blood tx: 2 units 10/06 --> Stool occult negative --> Current Hgb at 10.0, stable #. Protein albumin dissociation. upep and spep is negative ==> results consistent with inflammatory process #. Thrombocytosis, likely secondary to reactive process. --> Has improved since admission --> Current PLT count at 340, wnl #. UTI. Resolved --> completed ceftriaxone --> urine culture results: Klebsiella Pneumoniae #. Hyperglycemia, potentially related to diabetes --> Consider Endocrinology evaluation. #. Lower spinal pain, has been seen by Dr. Ricci Severino with lumbar spondylosis, degenerative joint disease --> currently is on Tylenol and tramadol. I appreciate the consultation. Subjective Constitutional: Denies: no symptoms, chills, diaphoresis, fever, malaise, weakness, other HEENT: Denies: no symptoms, eye pain, blurred vision, tearing, double vision, ear pain, ear discharge, nose pain, nose congestion, throat pain, throat swelling, mouth pain, mouth swelling, other Cardiovascular: Denies: no symptoms, chest pain, edema, irregular heart rate, lightheadedness, palpitations, syncope, other Respiratory: Denies: no symptoms, cough, orthopnea, shortness of breath, SOB with excertion, SOB at rest, sputum, stridor, wheezing, other Gastrointestinal/Abdominal: Denies: no symptoms, abdomen distended, abdominal pain, black stools, tarry stools, blood in stool, constipated, diarrhea, difficulty swallowing, nausea, poor appetite, poor fluid intake, rectal bleeding , vomiting, other Genitourinary: Denies: no symptoms, burning, discharge, frequency, flank pain, hematuria, incontinence, pain, urgency, other Neurologic/Psychiatric: Denies: no symptoms, anxiety, depressed, emotional problems, headache, numbness, paresthesia, pre-existing deficit, seizure, tingling, tremors, weakness, other Endocrine: Denies: no symptoms, excessive sweating, flushing, intolerance to cold, intolerance to heat, increased hunger, increased thirst, increased urine, unexplained weight gain, unexplained weight loss, other Hematologic/Lymphatic: Denies: no symptoms, anemia, easy bleeding, easy bruising, other Allergies: Coded Allergies: No Known Allergies (Unverified , 10/05/17) Subjective Pt awake and alert. No acute events. H/H stable. DC planning Objective Last 24 Hour Vital Signs Date Time Temp Pulse Resp B/P (MAP) Pulse Ox O2 Delivery O2 Flow Rate FiO2 10/12/17 04:00 98.2 69 19 156/56 (89) 98 98.2 10/12/17 00:00 98.2 77 19 143/76 (98) 98 98.2 10/11/17 21:11 78 165/76 10/11/17 21:11 165/76 10/11/17 21:00 Room Air 10/11/17 20:00 98.2 78 19 165/76 (105) 98 98.2 10/11/17 16:00 98.4 63 19 148/57 (87) 98 98.4 10/11/17 12:40 98.3 10/11/17 12:00 98.3 70 18 146/67 (93) 100 98.3 10/11/17 11:41 98.4 10/11/17 09:00 Room Air 10/11/17 08:55 71 166/75 10/11/17 08:55 166/75 10/11/17 08:00 98.4 71 20 166/75 (105) 98 98.4 Intake and Output 10/11/17 10/12/17 19:00 07:00 Intake Total 580 ml Balance 580 ml Intake Oral 580 ml # Voids 4 Laboratory Tests 10/12/17 05:20: White Blood Count 7.9, Red Blood Count 3.72L, Hemoglobin 8.5L, Hematocrit 27.5L , Mean Corpuscular Volume 74L, Mean Corpuscular Hemoglobin 22.9L, Mean Corpuscular Hemoglobin Concent 31.0L, Red Cell Distribution Width 18.0H, Platelet Count 324, Mean Platelet Volume 7.6, Neutrophils (%) (Auto) 69.0, Lymphocytes (%) (Auto) 17.0L, Monocytes (%) (Auto) 10.5H, Eosinophils (%) (Auto ) 2.9, Basophils (%) (Auto) 0.6, Sodium Level 134L, Potassium Level 5.5H, Chloride Level 102, Carbon Dioxide Level 28, Anion Gap 4L, Blood Urea Nitrogen 36H, Creatinine 2.1H, Estimat Glomerular Filtration Rate , Glucose Level 184H, Calcium Level 9.0 Height (Feet): 5 Height (Inches): 4.00 Weight (Pounds): 187 General Appearance: alert EENT: TMs normal Neck: normal inspection Cardiovascular: regular rhythm Respiratory/Chest: normal breath sounds Abdomen: no organomegaly Extremities: non-tender Edema: no edema noted Leg (L), no edema noted Leg (R) Edema: mild edema Neurologic: oriented x 3 Skin: warm/dry Florencio Moore MD Oct 12, 2017 06:42
[2017-10-12] MEDS ORDERED: Sodium Polystyrene Sulfonate 15gm Powder ORAL SCH (07:30)
[2017-10-12 08:06] VITALS: BP 129/65
[2017-10-12] MEDS ORDERED: Losartan 50mg tab ORAL SCH (09:00)
[2017-10-12] MEDS: Sodium Chloride 1gm Tab ORAL SCH ×2 (10:05→13:08)
[2017-10-12] MEDS: Cephalexin 250mg Cap ORAL SCH (10:05)
[2017-10-12] MEDS: Metoprolol Tartrate 50mg tab ORAL SCH (10:06)
[2017-10-12] MEDS: Heparin 5000 units/ml inj SUBQ SCH ×2 (10:08→10:22)
[2017-10-12] MEDS: Levemir Flexpen SUBQ SCH (10:09)
[2017-10-12 12:03] VITALS: BP 158/55
--- NOTE | 2017-10-12 12:59 | Pulmonology Progress Note ---
Assessment/Plan Problems: (1) Encephalopathy acute (2) Severe anemia (3) Renal insufficiency (4) Intractable back pain (5) Hyponatremia (6) History of hypertension Assessment/Plan EGD gastrities s/p transfusion 2 units prbc, hematology f/u appreciated check h/h pt/ot neuro, psych evaluation appreciated albumin is 1.9 Subjective ROS Limited/Unobtainable: No Interval Events: comfortable Allergies: Coded Allergies: No Known Allergies (Unverified , 10/05/17) Objective Last 24 Hour Vital Signs Date Time Temp Pulse Resp B/P (MAP) Pulse Ox O2 Delivery O2 Flow Rate FiO2 10/12/17 10:06 156/56 10/12/17 10:06 69 156/56 10/12/17 08:06 98.8 65 20 129/65 (86) 100 98.8 10/12/17 04:00 98.2 69 19 156/56 (89) 98 98.2 10/12/17 00:00 98.2 77 19 143/76 (98) 98 98.2 10/11/17 21:11 78 165/76 10/11/17 21:11 165/76 10/11/17 21:00 Room Air 10/11/17 20:00 98.2 78 19 165/76 (105) 98 98.2 10/11/17 16:00 98.4 63 19 148/57 (87) 98 98.4 Intake and Output 10/11/17 10/12/17 19:00 07:00 Intake Total 580 ml 360 ml Balance 580 ml 360 ml Intake Oral 580 ml 360 ml # Voids 4 4 General Appearance: WD/WN HEENT: normocephalic, atraumatic Respiratory/Chest: chest wall non-tender, lungs clear Cardiovascular: normal peripheral pulses, normal rate Abdomen: normal bowel sounds, soft, non tender Genitourinary: normal external genitalia Extremities: no clubbing Skin: no rash Neurologic/Psychiatric: pot liner II-XII grossly normal Lymphatic: no neck adenopathy Laboratory Tests 10/12/17 05:20: White Blood Count 7.9, Red Blood Count 3.72L, Hemoglobin 8.5L, Hematocrit 27.5L , Mean Corpuscular Volume 74L, Mean Corpuscular Hemoglobin 22.9L, Mean Corpuscular Hemoglobin Concent 31.0L, Red Cell Distribution Width 18.0H, Platelet Count 324, Mean Platelet Volume 7.6, Neutrophils (%) (Auto) 69.0, Lymphocytes (%) (Auto) 17.0L, Monocytes (%) (Auto) 10.5H, Eosinophils (%) (Auto ) 2.9, Basophils (%) (Auto) 0.6, Sodium Level 134L, Potassium Level 5.5H, Chloride Level 102, Carbon Dioxide Level 28, Anion Gap 4L, Blood Urea Nitrogen 36H, Creatinine 2.1H, Estimat Glomerular Filtration Rate , Glucose Level 184H, Calcium Level 9.0 Current Medications Medications (Trade) Dose Ordered Sig/Lorie Route PRN Reason Start Time Stop Time Status Last Admin Dose Admin Acetaminophen (Tylenol) 650 mg Q4H PRN ORAL fever (temp>100.5F) 10/08/17 20:44 11/05/17 20:43 Al Hydroxide/Mg Hydroxide (Mylanta II) 30 ml Q6H PRN ORAL dyspepsia 10/08/17 20:44 11/07/17 20:43 Cephalexin (Keflex) 250 mg Q12HR ORAL 10/11/17 21:00 10/18/17 20:59 10/12/17 10:05 Dextrose (Dextrose 50%) 25 ml STAT PRN IV Hypoglycemia 10/08/17 20:44 11/07/17 20:43 Dextrose (Dextrose 50%) 50 ml STAT PRN IV Hypoglycemia 10/09/17 08:00 11/05/17 07:59 Heparin Sodium (Porcine) (Heparin 5000 units/ml) 5,000 units EVERY 12 HOURS SUBQ 10/08/17 21:00 11/05/17 08:59 10/11/17 21:15 Insulin Aspart (NovoLOG) BEFORE MEALS AND HS SUBQ 10/08/17 21:00 11/05/17 13:01 10/12/17 06:42 Insulin Aspart (NovoLOG) 5 units NOVOTIAC SUBQ 10/10/17 11:50 11/09/17 11:49 10/12/17 06:42 Insulin Detemir (Levemir) 20 units DAILY SUBQ 10/11/17 09:00 11/08/17 11:29 10/12/17 10:09 Lorazepam (Ativan 2mg/ml 1ml) 0.5 mg Q4H PRN IV For Anxiety 10/08/17 20:45 10/13/17 20:44 Losartan Potassium (Cozaar) 50 mg DAILY ORAL 10/12/17 09:00 11/05/17 20:59 10/12/17 10:06 Metoprolol Tartrate (Lopressor) 50 mg Q12HR ORAL 10/08/17 21:00 11/05/17 20:59 10/12/17 10:06 Ondansetron HCl (Zofran) 4 mg Q6H PRN IVP Nausea & Vomiting 10/08/17 20:45 11/07/17 20:44 Pantoprazole (Protonix) 40 mg DAILY ORAL 10/09/17 09:00 11/08/17 08:59 10/12/17 10:05 Polyethylene Glycol (Miralax) 17 gm HSPRN PRN ORAL Constipation 10/08/17 20:45 11/07/17 20:44 Sodium Chloride (NaCl) 1 gm THREE TIMES A DAY ORAL 10/10/17 18:00 11/09/17 17:59 10/12/17 10:05 Tramadol HCl (Ultram) 50 mg Q4H PRN ORAL Severe Pain (Pain Scale 7-10) 10/08/17 20:45 10/13/17 20:44 10/11/17 11:41 Zolpidem Tartrate (Ambien) 5 mg HSPRN PRN ORAL Insomnia 10/08/17 20:45 10/15/17 20:44 Albert Guy MD Oct 12, 2017 12:59
[2017-10-12] MEDS ORDERED: TRAMADOL HCL50 MG ORAL (13:25)
[2017-10-12] MEDS ORDERED: METOPROLOL TART50 MG ORAL (13:25)
[2017-10-12] MEDS ORDERED: AMBIEN5 MG ORAL (13:25)
[2017-10-12] MEDS ORDERED: NOVOLOG100 UNITS1 SUBQ (13:25)
[2017-10-12] MEDS ORDERED: LEVEMIR FL100 UNIT/1 SUBQ (13:25)
[2017-10-12] MEDS ORDERED: COZAAR50 MG ORAL (13:25)
--- NOTE | 2017-10-12 13:29 | General Progress Note ---
Assessment/Plan Status: stable Assessment/Plan cognitive impairment the pt lacks capacity to make decisions recommend short term sniff Subjective Date patient seen: Oct 12, 2017 Neurologic/Psychiatric: Reports: anxiety Allergies: Coded Allergies: No Known Allergies (Unverified , 10/05/17) Subjective the pt lives alone. the pt is illogical and wants to go home Objective Last 24 Hour Vital Signs Date Time Temp Pulse Resp B/P (MAP) Pulse Ox O2 Delivery O2 Flow Rate FiO2 10/12/17 10:06 156/56 10/12/17 10:06 69 156/56 10/12/17 08:06 98.8 65 20 129/65 (86) 100 98.8 10/12/17 04:00 98.2 69 19 156/56 (89) 98 98.2 10/12/17 00:00 98.2 77 19 143/76 (98) 98 98.2 10/11/17 21:11 78 165/76 10/11/17 21:11 165/76 10/11/17 21:00 Room Air 10/11/17 20:00 98.2 78 19 165/76 (105) 98 98.2 10/11/17 16:00 98.4 63 19 148/57 (87) 98 98.4 Intake and Output 10/11/17 10/12/17 19:00 07:00 Intake Total 580 ml 360 ml Balance 580 ml 360 ml Intake Oral 580 ml 360 ml # Voids 4 4 Laboratory Tests 10/12/17 05:20: White Blood Count 7.9, Red Blood Count 3.72L, Hemoglobin 8.5L, Hematocrit 27.5L , Mean Corpuscular Volume 74L, Mean Corpuscular Hemoglobin 22.9L, Mean Corpuscular Hemoglobin Concent 31.0L, Red Cell Distribution Width 18.0H, Platelet Count 324, Mean Platelet Volume 7.6, Neutrophils (%) (Auto) 69.0, Lymphocytes (%) (Auto) 17.0L, Monocytes (%) (Auto) 10.5H, Eosinophils (%) (Auto ) 2.9, Basophils (%) (Auto) 0.6, Sodium Level 134L, Potassium Level 5.5H, Chloride Level 102, Carbon Dioxide Level 28, Anion Gap 4L, Blood Urea Nitrogen 36H, Creatinine 2.1H, Estimat Glomerular Filtration Rate , Glucose Level 184H, Calcium Level 9.0 Height (Feet): 5 Height (Inches): 4.00 Weight (Pounds): 187 General Appearance: no apparent distress, alert Neurologic: oriented x 3, responsive, depressed affect Eli Montana MD Oct 12, 2017 13:29
--- NOTE | 2017-10-12 13:39 | GI Progress Note ---
Assessment/Plan Problems: (1) Diabetes mellitus ICD Codes: E11.9 - Type 2 diabetes mellitus without complications SNOMED: 86874714 (2) Severe anemia ICD Codes: D64.9 - Anemia, unspecified SNOMED: 589555179 Status: stable, unchanged Status Narrative Discussed with Dr. Marquez. Assessment/Plan SUMMARY OF FINDINGS: 1. Esophagitis. 2. Small hiatal hernia. 3. Gastritis. 4. Poor colonic prep and incomplete colonoscopy. 5. Internal hemorrhoids. dc planning per primary team prn transfusions ppi DM management venofer fu labs The patient was seen and examined at bedside and all new and available data was reviewed in the patients chart. I agree with the above findings, impression and plan. (Patient seen earlier today. Signature stamp does not reflect patient encounter time.). - Imtiaz Marquez MD Subjective Subjective left flank pain Objective Last 24 Hour Vital Signs Date Time Temp Pulse Resp B/P (MAP) Pulse Ox O2 Delivery O2 Flow Rate FiO2 10/12/17 10:06 156/56 10/12/17 10:06 69 156/56 10/12/17 08:06 98.8 65 20 129/65 (86) 100 98.8 10/12/17 04:00 98.2 69 19 156/56 (89) 98 98.2 10/12/17 00:00 98.2 77 19 143/76 (98) 98 98.2 10/11/17 21:11 78 165/76 10/11/17 21:11 165/76 10/11/17 21:00 Room Air 10/11/17 20:00 98.2 78 19 165/76 (105) 98 98.2 10/11/17 16:00 98.4 63 19 148/57 (87) 98 98.4 Intake and Output 10/11/17 10/12/17 19:00 07:00 Intake Total 580 ml 360 ml Balance 580 ml 360 ml Intake Oral 580 ml 360 ml # Voids 4 4 Laboratory Tests Test 10/12/17 05:20 White Blood Count 7.9 K/UL (4.8-10.8) Red Blood Count 3.72 M/UL (4.20-5.40) L Hemoglobin 8.5 G/DL (12.0-16.0) L Hematocrit 27.5 % (37.0-47.0) L Mean Corpuscular Volume 74 FL (80-99) L Mean Corpuscular Hemoglobin 22.9 PG (27.0-31.0) L Mean Corpuscular Hemoglobin Concent 31.0 G/DL (32.0-36.0) L Red Cell Distribution Width 18.0 % (11.6-14.8) H Platelet Count 324 K/UL (150-450) Mean Platelet Volume 7.6 FL (6.5-10.1) Neutrophils (%) (Auto) 69.0 % (45.0-75.0) Lymphocytes (%) (Auto) 17.0 % (20.0-45.0) L Monocytes (%) (Auto) 10.5 % (1.0-10.0) H Eosinophils (%) (Auto) 2.9 % (0.0-3.0) Basophils (%) (Auto) 0.6 % (0.0-2.0) Sodium Level 134 MMOL/L (136-145) L Potassium Level 5.5 MMOL/L (3.5-5.1) H Chloride Level 102 MMOL/L (98-107) Carbon Dioxide Level 28 MMOL/L (21-32) Anion Gap 4 mmol/L (5-15) L Blood Urea Nitrogen 36 mg/dL (7-18) H Creatinine 2.1 MG/DL (0.55-1.30) H Estimat Glomerular Filtration Rate mL/min (>60) Glucose Level 184 MG/DL (74-106) H Calcium Level 9.0 MG/DL (8.5-10.1) Height (Feet): 5 Height (Inches): 4.00 Weight (Pounds): 187 General Appearance: WD/WN, no apparent distress, alert, overweight Cardiovascular: normal rate Respiratory/Chest: normal breath sounds, no respiratory distress Abdominal Exam: normal bowel sounds, non tender, soft Extremities: normal range of motion, non-tender Faustino Norton NP Oct 12, 2017 13:39
--- NOTE | 2017-10-12 15:13 | Diagnostic Imaging Report ---
Indication: Abnormal renal function tests Technique: Grayscale and duplex images of the kidneys, retroperitoneum, and bladder were obtained. Comparison: none Findings: Right kidney measures 10.3 cm in length. Left kidney measures 9.4 cm in length. Both kidneys demonstrate normal echogenicity. No hydronephrosis. Right kidney demonstrates a 10 mm cyst. No focal abnormality on the left.. Normal inferior vena cava. Bladder is normal. Impression: Essentially unremarkable exam. Incidental finding small right renal cyst.
--- NOTE | 2017-10-12 15:55 | General Progress Note ---
Assessment/Plan Assessment/Plan (1) Lumbar degenerative disc disease (2) Lumbar spondylosis (3) Lumbar herniated disc (4) Lumbar radiculopathy Patient to be continued on Tramadol D/w Dr. Severino and he concurred. Subjective Date patient seen: Oct 12, 2017 Time patient seen: 03:15 - pm Allergies: Coded Allergies: No Known Allergies (Unverified , 10/05/17) Subjective REVIEW OF SYSTEMS: Denies rash, fever, chills, sweating, dizziness, drowsiness, sore throat, or change in weight. No shortness of breath or chest pain. No nausea, vomiting, diarrhea, or blood in stool or urine. No bowel or bladder incontinence. No dysuria. She is complaining of low back pain. SUBJECTIVE: Patient has no signs of pain or distress. Pain is tolerated on the Tramadol. Objective Last 24 Hour Vital Signs Date Time Temp Pulse Resp B/P (MAP) Pulse Ox O2 Delivery O2 Flow Rate FiO2 10/12/17 12:03 98.3 71 18 158/55 (89) 98 98.3 10/12/17 10:06 156/56 10/12/17 10:06 69 156/56 10/12/17 08:06 98.8 65 20 129/65 (86) 100 98.8 10/12/17 04:00 98.2 69 19 156/56 (89) 98 98.2 10/12/17 00:00 98.2 77 19 143/76 (98) 98 98.2 10/11/17 21:11 78 165/76 10/11/17 21:11 165/76 10/11/17 21:00 Room Air 10/11/17 20:00 98.2 78 19 165/76 (105) 98 98.2 10/11/17 16:00 98.4 63 19 148/57 (87) 98 98.4 Intake and Output 10/11/17 10/12/17 19:00 07:00 Intake Total 580 ml 360 ml Balance 580 ml 360 ml Intake Oral 580 ml 360 ml # Voids 4 4 Laboratory Tests 10/12/17 05:20: White Blood Count 7.9, Red Blood Count 3.72L, Hemoglobin 8.5L, Hematocrit 27.5L , Mean Corpuscular Volume 74L, Mean Corpuscular Hemoglobin 22.9L, Mean Corpuscular Hemoglobin Concent 31.0L, Red Cell Distribution Width 18.0H, Platelet Count 324, Mean Platelet Volume 7.6, Neutrophils (%) (Auto) 69.0, Lymphocytes (%) (Auto) 17.0L, Monocytes (%) (Auto) 10.5H, Eosinophils (%) (Auto ) 2.9, Basophils (%) (Auto) 0.6, Sodium Level 134L, Potassium Level 5.5H, Chloride Level 102, Carbon Dioxide Level 28, Anion Gap 4L, Blood Urea Nitrogen 36H, Creatinine 2.1H, Estimat Glomerular Filtration Rate , Glucose Level 184H, Calcium Level 9.0 Height (Feet): 5 Height (Inches): 4.00 Weight (Pounds): 187 Objective GENERAL: Alert, awake, and oriented. HEENT: PERRLA. LUNGS: Decreased breath sounds bilaterally. HEART: S1 and S2, regular. ABDOMEN: Obese. EXTREMITIES: No cyanosis. No clubbing. NEURO: No changes. Thai Husain Oct 12, 2017 15:55
[2017-10-12 16:00] VITALS: BP 105/60
--- NOTE | 2017-10-12 18:08 | Internal Med Progress Note ---
Subjective Date of Service: Oct 12, 2017 Physician Name Kody Borja Attending Physician Michael Ramos MD Current Medications Medications (Trade) Dose Ordered Sig/Lorie Route PRN Reason Start Time Stop Time Status Last Admin Dose Admin Acetaminophen (Tylenol) 650 mg Q4H PRN ORAL fever (temp>100.5F) 10/08/17 20:44 11/05/17 20:43 Al Hydroxide/Mg Hydroxide (Mylanta II) 30 ml Q6H PRN ORAL dyspepsia 10/08/17 20:44 11/07/17 20:43 Cephalexin (Keflex) 250 mg Q12HR ORAL 10/11/17 21:00 10/18/17 20:59 10/12/17 10:05 Dextrose (Dextrose 50%) 25 ml STAT PRN IV Hypoglycemia 10/08/17 20:44 11/07/17 20:43 Dextrose (Dextrose 50%) 50 ml STAT PRN IV Hypoglycemia 10/09/17 08:00 11/05/17 07:59 Heparin Sodium (Porcine) (Heparin 5000 units/ml) 5,000 units EVERY 12 HOURS SUBQ 10/08/17 21:00 11/05/17 08:59 10/11/17 21:15 Insulin Aspart (NovoLOG) BEFORE MEALS AND HS SUBQ 10/08/17 21:00 11/05/17 13:01 10/12/17 17:54 Insulin Aspart (NovoLOG) 5 units NOVOTIAC SUBQ 10/10/17 11:50 11/09/17 11:49 10/12/17 17:52 Insulin Detemir (Levemir) 20 units DAILY SUBQ 10/11/17 09:00 11/08/17 11:29 10/12/17 10:09 Lorazepam (Ativan 2mg/ml 1ml) 0.5 mg Q4H PRN IV For Anxiety 10/08/17 20:45 10/13/17 20:44 Losartan Potassium (Cozaar) 50 mg DAILY ORAL 10/12/17 09:00 11/05/17 20:59 10/12/17 10:06 Metoprolol Tartrate (Lopressor) 50 mg Q12HR ORAL 10/08/17 21:00 11/05/17 20:59 10/12/17 10:06 Ondansetron HCl (Zofran) 4 mg Q6H PRN IVP Nausea & Vomiting 8/31/18 20:45 11/07/17 20:44 Pantoprazole (Protonix) 40 mg DAILY ORAL 10/09/17 09:00 11/08/17 08:59 10/12/17 10:05 Polyethylene Glycol (Miralax) 17 gm HSPRN PRN ORAL Constipation 10/08/17 20:45 11/07/17 20:44 Sodium Chloride (NaCl) 1 gm THREE TIMES A DAY ORAL 10/10/17 18:00 11/09/17 17:59 10/12/17 13:08 Tramadol HCl (Ultram) 50 mg Q4H PRN ORAL Severe Pain (Pain Scale 7-10) 10/08/17 20:45 10/13/17 20:44 10/11/17 11:41 Zolpidem Tartrate (Ambien) 5 mg HSPRN PRN ORAL Insomnia 10/08/17 20:45 10/15/17 20:44 Allergies: Coded Allergies: No Known Allergies (Unverified , 10/05/17) ROS Limited/Unobtainable: No Constitutional: Reports: no symptoms HEENT: Reports: no symptoms Cardiovascular: Reports: no symptoms Respiratory: Reports: no symptoms Gastrointestinal/Abdominal: Reports: no symptoms Genitourinary: Reports: no symptoms Neurologic/Psychiatric: Reports: no symptoms Subjective 82 YO F admitted with altered mental status. Now severe anemia. Cover for [facility]-Dr Ramos. S/P EGD/colonoscopy 10/08/17. Objective Last Vital Signs Date Time Temp Pulse Resp B/P (MAP) Pulse Ox O2 Delivery O2 Flow Rate FiO2 10/12/17 12:03 98.3 71 18 158/55 (89) 98 98.3 10/11/17 21:00 Room Air 10/08/17 14:15 3 Laboratory Tests Test 10/12/17 05:20 White Blood Count 7.9 K/UL (4.8-10.8) Red Blood Count 3.72 M/UL (4.20-5.40) L Hemoglobin 8.5 G/DL (12.0-16.0) L Hematocrit 27.5 % (37.0-47.0) L Mean Corpuscular Volume 74 FL (80-99) L Mean Corpuscular Hemoglobin 22.9 PG (27.0-31.0) L Mean Corpuscular Hemoglobin Concent 31.0 G/DL (32.0-36.0) L Red Cell Distribution Width 18.0 % (11.6-14.8) H Platelet Count 324 K/UL (150-450) Mean Platelet Volume 7.6 FL (6.5-10.1) Neutrophils (%) (Auto) 69.0 % (45.0-75.0) Lymphocytes (%) (Auto) 17.0 % (20.0-45.0) L Monocytes (%) (Auto) 10.5 % (1.0-10.0) H Eosinophils (%) (Auto) 2.9 % (0.0-3.0) Basophils (%) (Auto) 0.6 % (0.0-2.0) Sodium Level 134 MMOL/L (136-145) L Potassium Level 5.5 MMOL/L (3.5-5.1) H Chloride Level 102 MMOL/L (98-107) Carbon Dioxide Level 28 MMOL/L (21-32) Anion Gap 4 mmol/L (5-15) L Blood Urea Nitrogen 36 mg/dL (7-18) H Creatinine 2.1 MG/DL (0.55-1.30) H Estimat Glomerular Filtration Rate mL/min (>60) Glucose Level 184 MG/DL (74-106) H Calcium Level 9.0 MG/DL (8.5-10.1) Intake and Output 10/11/17 10/12/17 19:00 07:00 Intake Total 580 ml 360 ml Balance 580 ml 360 ml Intake Oral 580 ml 360 ml # Voids 4 4 Objective General Appearance: WD/WN, no apparent distress, alert EENT: PERRL/EOMI, normal ENT inspection Neck: non-tender, normal alignment, supple Cardiovascular: normal peripheral pulses, normal rate, regular rhythm, no gallop/murmur, no JVD Respiratory/Chest: chest wall non-tender, lungs clear, normal breath sounds, no respiratory distress, no accessory muscle use Abdomen: normal bowel sounds, non tender, soft, no organomegaly, no mass Extremities: normal range of motion, non-tender 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 (3) Encephalopathy acute (4) Intractable back pain Assessment & Plan: See pain management note. (5) Diabetes mellitus Assessment & Plan: Continue novolog sliding scale. (6) Hypertension (7) Severe anemia Assessment & Plan: Await endoscopy and colonoscopy tomorrow 10/08/17. (8) Lumbar stenosis (9) Spondylolisthesis at L4-L5 level (10) Esophagitis (11) Gastritis (12) UTI (urinary tract infection) Assessment & Plan: Klebsiella. Continue keflex (13) Klebsiella infection Status: stable Assessment/Plan Discharge to Rehab on [place] today Kody Borja MD Oct 12, 2017 18:08
--- NOTE | 2017-10-14 07:57 | Discharge Summary ---
Discharge Summary Discharge Summary _ DATE OF ADMISSION: 10/06/2017 DATE OF DISCHARGE: 10/12/2017 REASON FOR ADMISSION: 82 years old female with past medical history of hypertension, diabetes mellitus type 2, hypercholesterolemia, was brought to emergency department by [employer]. Patient was found sitting in the bench alone at night and was somewhat altered. Patient stated that two days ago she fell and landed on her back. She had severe pain in the lower back and left hip. Pain rated as 10 out of 10,sharp ,radiating down the left leg. Patient reported living alone. No chest pain or shortness of breath. No fever no chills. Vital signs reveal elevated blood pressure - 190/72 and tachycardia.. Laboratory workup revealed no leukocytosis, severe anemia with hemoglobin 7.3 and hematocrit 23.9. Sodium 125. BUN 39 ,creatinine 2.0. Blood glucose 413 . Troponin was negative EKG revealed sinus tachycardia-102, no acute ischemic changes. CT of the pelvis and lumbar spine revealed no acute process. X ray of the left hip revealed no evidence of fracture. Patient received treatment with hydralazine for elevated blood pressure. Patient was typed and crossed in preparation for transfusion. Patient received analgesia with insufficient pain relief. Patient admitted with diagnoses of intractable low back pain with left leg radiculopathy, hypertension ,severe anemia ,hyponatremia ,renal insufficiency, diabetes mellitus with hyperglycemia ,acute encephalopathy, hypercholesterolemia. CONSULTANTS: pulmonary Dr. Guy GI specialist Dr. Marquez plate preparer/oncologist Dr. Moore psychiatrist Pain specialist Dr. Severino HOSPITAL COURSE: Patient admitted initially to telemetry floor. Echocardiogram revealed preserved ejection fraction 65-70% and right ventricular systolic pressure of 19. Carotid duplex was essentially negative. Patient was transfused with packed red blood cells. Patient undergone EGD and colonoscopy on 10/08 with findings of esophagitis and gastritis, s/p biopsy , small hiatal hernia and internal hemorrhoids. Colonoscopy was incomplete due to poor preparation. Stool for occult blood was negative. CEA were was within normal limits. GI prophylaxis provided with PPI . Anemia workup was consistent with iron deficiency anemia . Patient was on IV Venofer. Hemoglobin and hematocrit were closely monitored with goal to keep hemoglobin above 7. Ct Scan Special Procedures Technologist followed . Prior to discharge hemoglobin 8.5 hematocrit 27.5. Pathology report came after patient was discharged and was consistent with active chronic H. pylori gastritis with erosive reactive changes. Patient will be undergoing treatment for H. pylori infection at the facility. Blood pressure was managed with beta janet and angiotensin receptor janet. Blood pressure was controlled . Renal parameters and electrolytes were closely monitored. Hyponatremia workup completed. Electrolytes corrected as needed. Kayexalate given for high potassium . Sodium prior to discharge 134 Nephrotoxins were avoided. Serum protein electrophoresis and urine protein electrophoresis were both negative. Renal ultrasound was essentially unremarkable: no hydronephrosis , normal kidneys echogenicity. Prior to discharge BUN 36 creatinine 2.1 . Patient likely had chronic renal insufficiency . Urinalysis with proteinuria. Patient likely had diabetic nephropathy due to uncontrolled long standing diabetes. Blood sugar was managed with short acting premeal insulin and long-acting insulin as well as a sliding scale of insulin as needed. Hemoglobin A1c 9.7 -not at goal. Blood sugar stabilized at the hospital. Patient will need to further bring blood sugar under control and continue meticulous anti-glycemic regimen at the facility. Lumbar spine MRI revealed degenerative spondylosis. Multilevel facet arthropathy and degenerative disc disease with variable degrees of lateral recess and neural foraminal stenosis. Pain specialist followed. Pain management was provided as per pain specialist recommendations. Pain was controlled. Patient was working with a physical and occupational therapists. Fall precautions were maintained. Urine culture was positive for Klebsiella pneumonia. Patient completed course of antibiotic for UTI. Supportive care provided. Bowel regimen instituted. Psychiatrist seen and evaluated patient and stated that patient had a cognitive impairment and lacks capacity to make an informed decision at this time. Psychiatrist recommended short-term placement to [facility]dc facility. Acute encephalopathy was likely secondary to hyponatremia , severe anemia and acute hyperglycemia. Place was found at [facility]. Patient was stable for transfer for further management . FINAL DIAGNOSES: Acute encephalopathy-resolved Severe iron deficiency anemia Active chronic H. pylori gastritis Esophagitis Diabetes mellitus out of control Chronic renal insufficiency with proteinuria, possible diabetic nephropathy UTI with Klebsiella, status post treatment Hyponatremia- resolved Hypertension Intractable back pain due to lumbar DDD Lumbar spondylosis Lumbar herniated disc Lumbar radiculopathy Status post recent for DISCHARGE MEDICATIONS: See Medication Reconciliation list. DISCHARGE INSTRUCTIONS: Patient was discharged to the [facility] facility. Follow up with medical doctor at the facility. Ria Hoang NP Oct 14, 2017 07:57
== END 2017-10-12 22:28 | disposition short-term general hospital (02) | DRG 640 ==
LOC: EMR 23:35 → 4E 10-06 01:37 → EDBEDREQ 10-06 01:51 → 2E 10-06 02:41 → 4W 10-08 20:42 → 3E 10-09 13:50
PROC: 0DJD8ZZ Inspection of Lower Intestinal Tract, Via Natural or Artificial Opening Endoscopic (ICD-10-PCS; principal; 2017-10-08 13:41)
PROC: 0DB78ZX Excision of Stomach, Pylorus, Via Natural or Artificial Opening Endoscopic, Diagnostic (ICD-10-PCS; principal; 2017-10-08 13:41)
DX: E87.1 Hypo-osmolality and hyponatremia (principal); G93.40 Encephalopathy, unspecified; N39.0 Urinary tract infection, site not specified; E11.65 Type 2 diabetes mellitus with hyperglycemia; E78.00 Pure hypercholesterolemia, unspecified; D50.9 Iron deficiency anemia, unspecified; M51.16 Intervertebral disc disorders with radiculopathy, lumbar region; M47.896 Other spondylosis, lumbar region; G31.84 Mild cognitive impairment of uncertain or unknown etiology; D47.3 Essential (hemorrhagic) thrombocythemia; K20.9 Esophagitis, unspecified; K64.8 Other hemorrhoids; B96.1 Klebsiella pneumoniae [K. pneumoniae] as the cause of diseases classified elsewhere; K29.50 Unspecified chronic gastritis without bleeding; K44.9 Diaphragmatic hernia without obstruction or gangrene; B96.81 Helicobacter pylori [H. pylori] as the cause of diseases classified elsewhere; E11.21 Type 2 diabetes mellitus with diabetic nephropathy; N18.9 Chronic kidney disease, unspecified; I12.9 Hypertensive chronic kidney disease with stage 1 through stage 4 chronic kidney disease, or unspecified chronic kidney disease; E11.22 Type 2 diabetes mellitus with diabetic chronic kidney disease
CPT/HCPCS: 36415; 72131; 72148; 72192; 76770; 80048; 80053; 81001; 82270; 82378; 82550; 82553; 82607; 82746; 82962; 83036; 83540; 83550; 83615; 83735; 84100; 84133; 84165; 84300; 84443; 84484; 84550; 85007; 85025; 85044; 85060; 85610; 85651; 85730; 86850; 86900; 86901; 86920; 87086; 87181; 89050; 93005; 93306; 93880; 94003; 94150; 99285; J1815; S5561

== ENCOUNTER 2020-01-09 18:06 | Emergency (ER) | payer MEDICARE, OTHER ==
[~2020-01-09] VITALS: Ht 162.6 cm; Wt 95.3 kg
[~2020-01-09 18:06] MED LIST: AMBIEN5 MG ORAL; COZAAR50 MG ORAL; LEVEMIR FL100 UNIT/1 SUBQ; METOPROLOL TART50 MG ORAL; NOVOLOG100 UNITS1 SUBQ; TRAMADOL HCL50 MG ORAL
--- NOTE | 2020-01-09 18:34 | Emergency Room Report ---
History of Present Illness General Chief Complaint: Head Injury Source: Patient Present Illness HPI Disclaimer: Please note that this report is being documented using DRAGON technology. This can lead to erroneous entry secondary to incorrect interpretation by the dictating instrument. HPI: 84-year-old female presents for evaluation after a fall at her nursing facility. The patient was ambulating to the bathroom using a curtain for support on the right side when the curtain gave way from the buddy causing her to fall onto her buttocks and strike the back of her head. She noted swelling over the back of the head but no active bleeding. Reported initial headache but this is now resolved. Denied visual changes, dizziness, nausea or vomiting. She is reporting pain over the right side of the ribs and in the lower back. Denies abdominal pain. States she takes a daily baby aspirin. There was no palpitations, chest pain, lightheadedness, dizziness, weakness preceding the fall and she states it was purely mechanical as the curtain gave way causing her to fall. PMH: Reviewed PSH: Reviewed Allergies: Reviewed Social Hx: Reviewed Allergies: Coded Allergies: No Known Allergies (Unverified , 10/05/17) COVID-19 Screening Contact w/high risk pt: No Experienced COVID-19 symptoms?: No COVID-19 Testing performed RESOURCE MANAGEMENT SPECIALIST: Yes - 01/07 COVID-19 Screening: Negative COVID-19 COVID-19 Testing Source: nasal Nursing Documentation-PM Past Medical History: No History, Except For Hx Hypertension: Yes Review of Systems All Other Systems: negative except mentioned in HPI Physical Exam Vital Signs Date Time Temp Pulse Resp B/P (MAP) Pulse Ox O2 Delivery O2 Flow Rate FiO2 01/09/20 18:20 99.5 70 20 176/74 (108) 94 Room Air General: Awake and alert, no acute distress HEENT: Normocephalic. There is a large hematoma over the occiput on the left side that is mildly tender to palpation but no overlying bleeding or skin br eakdown. There are no face hematomas, lacerations or abrasions. No tenderness or soft tissue swelling over the facial bones. EOMI. PERRLA. No septal hematoma. No oral lacerations. Dentition is intact. No malocclusion Neck: Supple, trachea midline. Arrives without cervical collar Chest Wall: There is tenderness to palpation over the posterior lower ribs on the right side without palpable deformity CV: RRR. S1 and S2 normal. No murmur appreciated Resp: Normal work of breathing. No cough, wheezing or crackles appreciated Abd: Soft, nontender, nondistended. Morbidly obese abdomen. Skin: Intact. No abrasions, laceration or rash over the exposed skin MSK: Normal tone and bulk. No obvious deformity. Moving all extremities. Pelvis is stable. Neuro: Awake and alert. Mentating appropriately. Sensation is intact to light touch over the dermatomes of the upper and lower extremities Spine: There is no tenderness, step-off or deformity in the cervical, thoracic or lumbosacral spine. There is paraspinal tenderness in the lower thoracic and upper lumbar spine extending over the right side. Medical Decision Making Diagnostic Impression: Primary Impression: Gallstones Additional Impressions: Fall Contusion, hip Pneumonia Lab test negative for COVID-19 virus ER Course Is an 84-year-old female presenting after mechanical fall at nursing facility. She takes baby aspirin but no anticoagulants. She is awake alert and neurologically intact. CT head of the head does not show any acute injury. CT scan of the chest was obtained to evaluate for rib fracture. Radiology concern for inflammation around the gallbladder and gallstones however the patient has no clinical signs of cholecystitis. Also, radiology interpretation reports infiltrates concerning for COVID-19 infection. Patient denies respiratory symptoms at this time as well. Rapid COVID-19 swab is negative. Patient started on azithromycin. I discussed with her PMD, Dr. Ramos who agrees that the patient can be managed on an outpatient basis at the SNF given how well she looks clinically. Can return to the ER with new or worsening symptoms. Will arrange transfer back to SNF. Microbiology Date/Time Source Procedure Growth Status 01/09/20 20:10 Nasopharynx SARS-CoV-2 RdRp Gene Assay - Final Complete Other X-Ray Diagnostic Results Other X-Ray Diagnostic Results : X-Ray ordered: Femur # of Views/Limited Vs Complete: 2 View Indication: Pain EP Interpretation: Yes Interpretation: no dislocation, no soft tissue swelling, no fractures Impression: No acute disease Electronically Signed by: Electronically signed by Dr. Thom Hill MD CT/MRI/US Diagnostic Results CT/MRI/US Diagnostic Results : Impression Procedure: CT Chest Abdomen Pelvis wo Con EXAM: CT Abdomen and Pelvis Without Intravenous Contrast CLINICAL HISTORY: INJ TECHNIQUE: Axial computed tomography images of the abdomen and pelvis without intravenous contrast. CTDI is 26.5 mGy and DLP is 769.4 mGy-cm. One or more of the following dose reduction techniques were used: automated exposure control, adjustment of the mA and/or kV according to patient size, use of iterative reconstruction technique. COMPARISON: No previous study for comparison FINDINGS: Lung bases: Unremarkable. No mass. No consolidation. ABDOMEN: Liver: Diffuse fatty infiltration of the liver is noted. The liver and the spleen are normal in contour. Gallbladder and bile ducts: Cholelithiasis and sludge within the gallbladder. Pericholecystic fluid. There is inflammatory change surrounding the gallbladder compatible with acute cholecystitis. No ductal dilation. Pancreas: Unremarkable. No ductal dilation. Spleen: See above. Adrenals: Unremarkable. No mass. Kidneys and ureters: Nonspecific stranding about the perinephric spaces bilaterally without hydronephrosis. Stomach and bowel: The stomach is underdistended. Mild gastritis however cannot be excluded. Moderate quantity of stool throughout the colon. No evidence of bowel obstruction. Diverticulosis without diverticulitis. PELVIS: Appendix: No findings to suggest acute appendicitis. Bladder: The bladder is underdistended. No stones. Reproductive: Status post hysterectomy. ABDOMEN and PELVIS: Intraperitoneal space: Unremarkable. No free air. No significant fluid collection. Bones/joints: Moderate to severe osteoarthritic changes about the sacroiliac joints. No acute fracture. No dislocation. Soft tissues: Ischiorectal fat is clean. Vasculature: Unremarkable. No abdominal aortic aneurysm. Lymph nodes: Unremarkable. No enlarged lymph nodes. IMPRESSION: Findings suggestive of acute cholecystitis. EXAM: CT Chest Without Intravenous Contrast CLINICAL HISTORY: INJ TECHNIQUE: Axial computed tomography images of the chest without intravenous contrast. CTDI is 28.6 mGy and DLP is 1509.8 mGy-cm. One or more of the following dose reduction techniques were used: automated exposure control, adjustment of the mA and/or kV according to patient size, use of iterative reconstruction technique. COMPARISON: No previous studies for comparison. FINDINGS: Lungs: Diffuse patchy airspace disease throughout both lungs worrisome for Covid-90 pneumonia. The airway is patent. Pleural space: No pleural effusion or pneumothorax. Heart: Cardiomegaly. Very small pericardial effusion. Mediastinum: Small hiatal hernia and probable distal esophagitis. Thyroid: Thyroid gland is unremarkable per Bones/joints: Clavicles are unremarkable. Old healed posterior lateral right mid rib fracture. Mild to moderate degenerative disc disease of the thoracic spine and kyphosis. The sternum is unremarkable. No dislocation. Soft tissues: Unremarkable. Vasculature: Atherosclerotic disease of the thoracic aorta. No thoracic aortic aneurysm. Lymph nodes: Unremarkable. No enlarged lymph nodes. Other findings: Mild hypoaeration. IMPRESSION: 1. No acute injury to the chest is detected. 2. Hypoaeration. 3. Findings worrisome for Covid-19 pneumonia. 4. Cardiomegaly. Dictated By: Sammy Harrell M.D. Electronically Signed By:Sammy Harrell M.D. Signed Date/Time01/09/201928 CC: Thom Hill MD CT Head Without Intravenous Contrast CLINICAL HISTORY: Injury. Headache. TECHNIQUE: Axial computed tomography images of the head/brain without intravenous contrast. CTDI is 53.4 mGy and DLP is 975.1 mGy-cm. One or more of the following dose reduction techniques were used: automated exposure control, adjustment of the mA and/or kV according to patient size, use of iterative reconstruction technique. COMPARISON: No previous studies. FINDINGS: Brain: See below. Ventricles: There is prominence of the ventricular system, cortical sulci, basilar cisterns, compatible with age and atrophy. Bones/joints: Calvarium is within normal limits. No acute fracture. Soft tissues: There is a large 7.2 x 2.5 cm scalp hematoma at the left parietal region extending to the vertex. Sinuses: Visualized sinuses are unremarkable. Mastoid air cells: Mastoid air cells are well pneumatized. Other findings: Only axial and coronal images were provided. IMPRESSION: 1. Large scalp hematoma at the left parietal region extending towards the vertex. 2. Age-related atrophy and small vessel disease of aging. 3. No acute intracranial pathology is detected. 4. If there is concern for etiology such as early acute lacunar infarcts, magnetic resonance imaging of the brain with diffusion-weighted sequences should be performed for follow-up. Dictated By: Sammy Harrell M.D. Electronically Signed By:Sammy Harrell M.D. Signed Date/Time01/09/20 4238 CC: Thom Hill MD Last Vital Signs Date Time Temp Pulse Resp B/P (MAP) Pulse Ox O2 Delivery O2 Flow Rate FiO2 01/09/20 18:20 99.5 70 20 176/74 (108) 94 Room Air Disposition: SNF Condition: Stable Scripts Azithromycin* (ZITHROMAX*) 250 Mg Tablet 250 MG ORAL DAILY, #6 TAB 0 Refills Take two tables once daily for 1 day, then one tablet once daily for 4 days. Prov: Thom Hill MD 01/09/20 Thom Hill MD Jan 09, 2020 18:34
--- NOTE | 2020-01-09 18:58 | Diagnostic Imaging Report ---
EXAM: CT Head Without Intravenous Contrast CLINICAL HISTORY: Injury. Headache. TECHNIQUE: Axial computed tomography images of the head/brain without intravenous contrast. CTDI is 53.4 mGy and DLP is 975.1 mGy-cm. One or more of the following dose reduction techniques were used: automated exposure control, adjustment of the mA and/or kV according to patient size, use of iterative reconstruction technique. COMPARISON: No previous studies. FINDINGS: Brain: See below. Ventricles: There is prominence of the ventricular system, cortical sulci, basilar cisterns, compatible with age and atrophy. Bones/joints: Calvarium is within normal limits. No acute fracture. Soft tissues: There is a large 7.2 x 2.5 cm scalp hematoma at the left parietal region extending to the vertex. Sinuses: Visualized sinuses are unremarkable. Mastoid air cells: Mastoid air cells are well pneumatized. Other findings: Only axial and coronal images were provided. IMPRESSION: 1. Large scalp hematoma at the left parietal region extending towards the vertex. 2. Age-related atrophy and small vessel disease of aging. 3. No acute intracranial pathology is detected. 4. If there is concern for etiology such as early acute lacunar infarcts, magnetic resonance imaging of the brain with diffusion-weighted sequences should be performed for follow-up.
--- NOTE | 2020-01-09 19:30 | Diagnostic Imaging Report ---
EXAM: CT Abdomen and Pelvis Without Intravenous Contrast CLINICAL HISTORY: INJ TECHNIQUE: Axial computed tomography images of the abdomen and pelvis without intravenous contrast. CTDI is 26.5 mGy and DLP is 769.4 mGy-cm. One or more of the following dose reduction techniques were used: automated exposure control, adjustment of the mA and/or kV according to patient size, use of iterative reconstruction technique. COMPARISON: No previous study for comparison FINDINGS: Lung bases: Unremarkable. No mass. No consolidation. ABDOMEN: Liver: Diffuse fatty infiltration of the liver is noted. The liver and the spleen are normal in contour. Gallbladder and bile ducts: Cholelithiasis and sludge within the gallbladder. Pericholecystic fluid. There is inflammatory change surrounding the gallbladder compatible with acute cholecystitis. No ductal dilation. Pancreas: Unremarkable. No ductal dilation. Spleen: See above. Adrenals: Unremarkable. No mass. Kidneys and ureters: Nonspecific stranding about the perinephric spaces bilaterally without hydronephrosis. Stomach and bowel: The stomach is underdistended. Mild gastritis however cannot be excluded. Moderate quantity of stool throughout the colon. No evidence of bowel obstruction. Diverticulosis without diverticulitis. PELVIS: Appendix: No findings to suggest acute appendicitis. Bladder: The bladder is underdistended. No stones. Reproductive: Status post hysterectomy. ABDOMEN and PELVIS: Intraperitoneal space: Unremarkable. No free air. No significant fluid collection. Bones/joints: Moderate to severe osteoarthritic changes about the sacroiliac joints. No acute fracture. No dislocation. Soft tissues: Ischiorectal fat is clean. Vasculature: Unremarkable. No abdominal aortic aneurysm. Lymph nodes: Unremarkable. No enlarged lymph nodes. IMPRESSION: Findings suggestive of acute cholecystitis. EXAM: CT Chest Without Intravenous Contrast CLINICAL HISTORY: INJ TECHNIQUE: Axial computed tomography images of the chest without intravenous contrast. CTDI is 28.6 mGy and DLP is 1509.8 mGy-cm. One or more of the following dose reduction techniques were used: automated exposure control, adjustment of the mA and/or kV according to patient size, use of iterative reconstruction technique. COMPARISON: No previous studies for comparison. FINDINGS: Lungs: Diffuse patchy airspace disease throughout both lungs worrisome for Covid-90 pneumonia. The airway is patent. Pleural space: No pleural effusion or pneumothorax. Heart: Cardiomegaly. Very small pericardial effusion. Mediastinum: Small hiatal hernia and probable distal esophagitis. Thyroid: Thyroid gland is unremarkable per Bones/joints: Clavicles are unremarkable. Old healed posterior lateral right mid rib fracture. Mild to moderate degenerative disc disease of the thoracic spine and kyphosis. The sternum is unremarkable. No dislocation. Soft tissues: Unremarkable. Vasculature: Atherosclerotic disease of the thoracic aorta. No thoracic aortic aneurysm. Lymph nodes: Unremarkable. No enlarged lymph nodes. Other findings: Mild hypoaeration. IMPRESSION: 1. No acute injury to the chest is detected. 2. Hypoaeration. 3. Findings worrisome for Covid-19 pneumonia. 4. Cardiomegaly.
[2020-01-09 19:45] VITALS: BP 162/67
[2020-01-09] MEDS ORDERED: HYDROcodone/Acetamin 5/325 tab ORAL ONE (20:00)
[2020-01-09] MEDS ORDERED: ZITHROMAX250 MG ORAL (20:44)
[2020-01-09] MEDS ORDERED: Azithromycin 250mg tab ORAL ONE (20:45)
[2020-01-09 22:00] VITALS: BP 152/71
[2020-01-09 22:20] VITALS: BP 145/73
--- NOTE | 2020-01-10 19:03 | Diagnostic Imaging Report ---
Indications: Pain, status post fall Technique: Two views of the right femur Comparison: None Findings: Rounded ossified density projects lateral to the lateral epicondyle, uncertain as to whether intra-articular or extra-articular.. There is degenerative narrowing of the medial joint compartment as well as osteophytes. No acute fracture. No dislocation. The joint spaces are otherwise preserved. Impression: No acute bony trauma Mild degenerative changes
== END 2020-01-09 22:20 ==
LOC: EDUNIT# 18:06 → EDBD 18:06 → EMR 18:25
DX: K80.20 Calculus of gallbladder without cholecystitis without obstruction (principal); S70.01XA Contusion of right hip, initial encounter; S00.03XA Contusion of scalp, initial encounter; W19.XXXA Unspecified fall, initial encounter; Y92.121 Bathroom in nursing home as the place of occurrence of the external cause; Z20.828 Contact with and (suspected) exposure to other viral communicable diseases; I10 Essential (primary) hypertension; J18.9 Pneumonia, unspecified organism
CPT/HCPCS: 70450; 71250; 73552; 74176; 99284; U0002